=== PATIENT | male | born 1990 | race Caucasian/White ===

== ENCOUNTER 2017-03-21 10:44 | Observation (INO) | payer MEDICARE, SELFPAY ==
[2017-03-21] MEDS ORDERED: Sodium Chloride 0.9% 1,000 ML IV ONE (11:11)
[2017-03-21] MEDS ORDERED: Ondansetron 4 MG/2 ML SDV IVPUSH ONE (11:11)
[2017-03-21] MEDS ORDERED: Ketorolac 30 MG/ML SDV IVPUSH ONE (11:11)
--- NOTE | 2017-03-21 11:31 | EDM.PDOC ---
ED HPI GENERAL MEDICAL PROBLEM - General Chief Complaint: Gastrointestinal Problem Stated Complaint: VOMITING Time Seen by Provider: 03/21/17 11:15 Source of Information: Reports: Patient History Limitations: Reports: No Limitations - History of Present Illness INITIAL COMMENTS - FREE TEXT/NARRATIVE: History of present illness: [26-year-old male comes in complaining of abdominal pain and vomiting. Patient indicates it started last night at 3 AM and has gotten progressively worse. Patient acute she does have a known history of colitis.] Review of systems: As per history of present illness and below otherwise all systems reviewed and negative. Past medical history: As per history of present illness and as reviewed below otherwise noncontributory. Surgical history: As per history of present illness and as reviewed below otherwise noncontributory. Social history: No reported history of drug or alcohol abuse. Family history: As per history of present illness and as reviewed below otherwise noncontributory. Physical exam: HEENT: Atraumatic, normocephalic, pupils reactive, negative for conjunctival pallor or scleral icterus, mucous membranes moist, throat clear, neck supple, nontender, trachea midline. Lungs: Clear to auscultation, breath sounds equal bilaterally, chest nontender. Heart: S1S2, regular, negative for clicks, rubs, or JVD. Abdomen: Protuberant, firm, diffusely tender abdomen. Negative for masses or hepatosplenomegaly. Negative for costovertebral tenderness. Pelvis: Stable nontender. Genitourinary: Deferred. Rectal: Deferred. Extremities: Atraumatic, negative for cords or calf pain. Right leg noted to have cellulitic appearance from the ankle to just below the knee, with out neurovascular compromise noted at this time. Neuro: Awake, alert, oriented. Cranial nerves II through XII unremarkable. Cerebellum unremarkable. Motor and sensory unremarkable throughout. Exam nonfocal. Patient indicated this is the leg that he has problems with. Diagnostics: [CBC, CMP, Gerhard Lezama, lipase, UA, CT of abdomen without contrast] Therapeutics: [IV, Zofran, Vanco, Zosyn] Impression: [Cellulitis] Plan: [Admit to Obs] Definitive disposition and diagnosis as appropriate pending reevaluation and review of above. - Related Data Allergies Allergy/AdvReac Type Severity Reaction Status Date / Time Iodinated Contrast- Oral and AdvReac Renal Verified 03/21/17 10:49 IV Dye Failure Home Meds: Home Meds . [No Known Home Meds] 03/21/17 [History] Past Medical History - Past Health History Medical/Surgical History: Denies Medical/Surgical History Gastrointestinal History: Reports: Other (See Below) Other Gastrointestinal History: elevation in LFTs, abdominal US 09/2015 showed fatty liver and gallbladder sludge. Genitourinary History: Reports: Other (See Below) Other Genitourinary History: na Neurological History: Reports: Other (See Below) Other Neuro History: hydrocephalus Dermatologic History: Reports: Cellulitis, Chronic Cellulitis Other Dermatologic History: RLE - Infectious Disease History Infectious Disease History: Reports: Chicken Pox - Past Surgical History Neurological Surgical History: Reports: None Social & Family History - Family History Family Medical History: Noncontributory - Tobacco Use Smoking Status *Q: Never Smoker Second Hand Smoke Exposure: No - Caffeine Use Caffeine Use: Reports: Coffee, Soda - Recreational Drug Use Recreational Drug Use: No ED ROS GENERAL - Review of Systems Review Of Systems: See Below (See history of present illness) ED EXAM, GI/ABD - Physical Exam Exam: See Below (See history of present illness) Course - Vital Signs Last Recorded V/S: Last Vital Signs Temp 36.9 C 03/21/17 11:09 Pulse 109 H 03/21/17 11:09 Resp 18 03/21/17 11:09 BP 130/68 03/21/17 11:09 Pulse Ox 93 L 03/21/17 11:09 - Orders/Labs/Meds Orders: Active Orders 24 hr Category Date Time Status Abdomen Pelvis wo Cont [CT] Stat Exams 03/21/17 11:11 Taken Tibia Fibula Rt [CR] Stat Exams 03/21/17 13:06 Taken CULTURE BLOOD [BC] Stat Lab 03/21/17 12:37 Received CULTURE BLOOD [BC] Stat Lab 03/21/17 12:37 Received UA W/MICROSCOPIC [URIN] Stat Lab 03/21/17 11:11 Uncollected Piperacillin/Tazobactam [Piperacil-Tazobact] 4.5 gm Med 03/21/17 12:59 Active Sodium Chloride 0.9% [Normal Saline] 100 ml IV ONETIME Sodium Chloride 0.9% [Normal Saline] 1,000 ml Med 03/21/17 13:38 Active IV NOW Vancomycin [Vancocin] 1 gm Med 03/21/17 12:59 Active Sodium Chloride 0.9% [Normal Saline] 250 ml IV ONETIME Blood Culture x2 Reflex Set [OM.PC] Stat Oth 03/21/17 12:24 Ordered Medication Orders Piperacillin Sod/Tazobactam (Sod 4.5 gm/ Sodium Chloride) 100 mls @ 100 mls/hr IV ONETIME ONE Stop: 03/21/17 13:58 Vancomycin HCl 1 gm/ Sodium (Chloride) 250 mls @ 250 mls/hr IV ONETIME ONE Stop: 03/21/17 13:58 Sodium Chloride (Normal Saline) 1,000 mls @ 125 mls/hr IV NOW STA Stop: 03/21/17 21:37 Last Admin: 03/21/17 13:42 Dose: 125 mls/hr Labs: Laboratory Tests 03/21/17 03/21/17 03/21/17 Range/Units 11:20 11:20 12:37 WBC 21.56 H (4.0-11.0) K/uL RBC 5.80 (4.50-5.90) M/uL Hgb 16.5 (13.0-17.0) g/dL Hct 46.6 (38.0-50.0) % MCV 80.3 (80.0-98.0) fL MCH 28.4 (27.0-32.0) pg MCHC 35.4 (31.0-37.0) g/dL RDW Std Deviation 38.5 (28.0-62.0) fl RDW Coeff of Gabriella 13 (11.0-15.0) % Plt Count 161 (150-400) K/uL MPV 10.50 (7.40-12.00) fL Add Manual Diff YES Neutrophils % (Manual) 88 H (48.0-80.0) % Band Neutrophils % 7 % Lymphocytes % (Manual) 3 L (16.0-40.0) % Monocytes % (Manual) 2 (0.0-15.0) % Nucleated RBC % 0.0 /100WBC Absolute Seg Neuts 19.0 Band Neutrophils # 1.5 Lymphocytes # (Manual) 0.6 Monocytes # (Manual) 0.4 Nucleated RBCs # 0 K/uL Lactate 1.4 (0.20-2.00) mmol/L Sodium 138 (136-146) mmol/L Potassium 3.9 (3.5-5.1) mmol/L Chloride 103 (98-110) mmol/L Carbon Dioxide 24 (21-31) mmol/L BUN 14 (6.0-23.0) mg/dL Creatinine 0.9 (0.6-1.5) mg/dL Est Cr Clr Drug Dosing 94.37 mL/min Estimated GFR (MDRD) > 60.0 ml/min Glucose 114 H (60-110) mg/dL Calcium 9.5 (8.8-10.8) mg/dL Total Bilirubin 1.9 H (0.1-1.5) mg/dL AST 31 (5-40) IU/L ALT 56 H (8-54) IU/L Alkaline Phosphatase 74 (40-150) Total Protein 7.3 (6.0-8.0) g/dL Albumin 4.4 (3.5-5.0) g/dL Globulin 2.9 (2.0-3.5) g/dL Albumin/Globulin Ratio 1.5 (1.3-2.8) Amylase 45 (10-90) U/L Lipase 12 (7-80) U/L Meds: Medications Generic Name Dose Route Start Last Admin Trade Name Freq PRN Reason Stop Dose Admin Piperacillin Sod/Tazobactam 100 mls @ 100 mls/hr 03/21/17 12:59 Sod 4.5 gm/ Sodium Chloride IV 03/21/17 13:58 ONETIME ONE Vancomycin HCl 1 gm/ Sodium 250 mls @ 250 mls/hr 03/21/17 12:59 Chloride IV 03/21/17 13:58 ONETIME ONE Sodium Chloride 1,000 mls @ 125 mls/hr 03/21/17 13:38 03/21/17 13:42 Normal Saline IV 03/21/17 21:37 125 mls/hr NOW STA Administration Discontinued Medications Generic Name Dose Route Start Last Admin Trade Name Freq PRN Reason Stop Dose Admin Sodium Chloride 1,000 mls @ 999 mls/hr 03/21/17 11:11 03/21/17 11:54 Normal Saline IV 03/21/17 12:11 999 mls/hr .Bolus ONE Administration Ketorolac Tromethamine 30 mg 03/21/17 11:11 03/21/17 11:58 Toradol IVPUSH 03/21/17 11:12 30 mg ONETIME ONE Administration Ondansetron HCl 4 mg 03/21/17 11:11 03/21/17 11:57 Zofran IVPUSH 03/21/17 11:12 4 mg ONETIME ONE Administration Departure - Departure Time of Disposition: 13:46 Disposition: Refer to Observation Condition: Good Clinical Impression: Cellulitis of right leg - Discharge Information Referrals: Alistair Hazel MD [Primary Care Provider] - Forms: ED Department Discharge - My Orders Last 24 Hours: My Active Orders 03/21/17 11:11 Abdomen Pelvis wo Cont [CT] Stat UA W/MICROSCOPIC [URIN] Stat 03/21/17 12:24 Blood Culture x2 Reflex Set [OM.PC] Stat 03/21/17 12:37 CULTURE BLOOD [BC] Stat CULTURE BLOOD [BC] Stat 03/21/17 12:59 Piperacillin/Tazobactam [Piperacil-Tazobact] 4.5 gm Sodium Chloride 0.9% [ Normal Saline] 100 ml IV ONETIME Vancomycin [Vancocin] 1 gm Sodium Chloride 0.9% [Normal Saline] 250 ml IV ONETIME 03/21/17 13:06 Tibia Fibula Rt [CR] Stat 03/21/17 13:38 Sodium Chloride 0.9% [Normal Saline] 1,000 ml IV NOW - Assessment/Plan Last 24 Hours: My Active Orders 03/21/17 11:11 Abdomen Pelvis wo Cont [CT] Stat UA W/MICROSCOPIC [URIN] Stat 03/21/17 12:24 Blood Culture x2 Reflex Set [OM.PC] Stat 03/21/17 12:37 CULTURE BLOOD [BC] Stat CULTURE BLOOD [BC] Stat 03/21/17 12:59 Piperacillin/Tazobactam [Piperacil-Tazobact] 4.5 gm Sodium Chloride 0.9% [ Normal Saline] 100 ml IV ONETIME Vancomycin [Vancocin] 1 gm Sodium Chloride 0.9% [Normal Saline] 250 ml IV ONETIME 03/21/17 13:06 Tibia Fibula Rt [CR] Stat 03/21/17 13:38 Sodium Chloride 0.9% [Normal Saline] 1,000 ml IV NOW
[2017-03-21 11:54] LABS: CHLORIDE,CL 103 mmol/L (98-110); SODIUM,NA 138 mmol/L (136-146)
[2017-03-21] MEDS ORDERED: Piperacillin/Tazobactam 4.5 GM in Sodium Chloride 0.9% 100 ML IV ONE (12:59)
[2017-03-21] MEDS ORDERED: Sodium Chloride 0.9% 1,000 ML IV STA (13:38)
[2017-03-21] MEDS ORDERED: oxyCODONE 5 MG Tab PO PRN (14:06)
[2017-03-21] MEDS ORDERED: Docusate Sodium 100 MG Cap PO PRN (14:06)
[2017-03-21] MEDS ORDERED: Morphine 2 MG/ML Syringe IVPUSH PRN (14:06)
[2017-03-21] MEDS ORDERED: Temazepam 15 MG Cap PO PRN (14:06)
[2017-03-21] MEDS ORDERED: Ondansetron 8 MG Tab.DIS PO PRN (14:06)
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
[2017-03-21] MEDS ORDERED: Sodium Chloride 0.9% 1,000 ML IV SCH ×2 (14:15→22:45)
[2017-03-21] MEDS ORDERED: Piperacillin/Tazobactam 4.5 GM in Sodium Chloride 0.9% 100 ML IV SCH (15:00)
[2017-03-21] MEDS: Enoxaparin 30 MG/0.3 ML Syringe SUBCUT SCH (15:15)
[2017-03-21] MEDS: Acetaminophen 325 MG Tab PO PRN (19:39)
[2017-03-21] MEDS ORDERED: Meropenem 1 GM in Sodium Chloride 0.9% 100 ML IV SCH (20:00)
--- NOTE | 2017-03-21 20:32 | PCM.SN ---
- Free Text/Narrative Note: The patient is a 26-year-old gentleman who is admitted for cellulitis localized to his right lower extremity. Nurse had called explained that the patient had broken out in a rash and seemed like he was altered mentally. The patient seems like he is somewhat tired but he is answering questions appropriately and is responding appropriately. This is not significantly different form I previously saw him in the emergency department. The patient had a temperature of 102F and blood cultures have been previously obtained. I've ordered an ABG, lactate and discontinued the patient's vancomycin and started the patient on meropenem. Lactate came back 1.2 and this is within a normal range and for now the patient will remain in medical/surgery for further monitoring and evaluation. I'll see the patient in the morning and his treatment plan will be adjusted accordingly.
[2017-03-21] MEDS: Meropenem 1 GM in Sodium Chloride 0.9% 100 ML IV SCH (20:50)
[2017-03-21] MEDS: Piperacillin/Tazobactam 4.5 GM in Sodium Chloride 0.9% 100 ML IV SCH (22:35)
[2017-03-22] MEDS: Acetaminophen 325 MG Tab PO PRN ×3 (05:03→18:25)
[2017-03-22] MEDS: Piperacillin/Tazobactam 4.5 GM in Sodium Chloride 0.9% 100 ML IV SCH ×3 (05:04→20:33)
[2017-03-22] MEDS: Meropenem 1 GM in Sodium Chloride 0.9% 100 ML IV SCH ×3 (06:19→22:55)
[2017-03-22 07:28] LABS: CHLORIDE,CL 105 mmol/L (98-110); SODIUM,NA 138 mmol/L (136-146)
[2017-03-22] MEDS: Enoxaparin 30 MG/0.3 ML Syringe SUBCUT SCH (08:08)
--- NOTE | 2017-03-22 11:12 | PCM.PN ---
- General Info Admission Dx/Problem (Free Text): cellulitis right lower extremity Subjective Update: patient doing better today. Less fever. Functional Status: Reports: Pain Controlled, Tolerating Diet - Review of Systems General: Reports: Fever, Weakness HEENT: Reports: No Symptoms Pulmonary: Reports: No Symptoms Cardiovascular: Reports: No Symptoms Gastrointestinal: Reports: No Symptoms Genitourinary: Reports: No Symptoms Musculoskeletal: Reports: No Symptoms Skin: Reports: Rash Neurological: Reports: No Symptoms Psychiatric: Reports: No Symptoms - Patient Data Vitals - Most Recent: Last Vital Signs Temp 37.1 C 03/22/17 08:07 Pulse 104 H 03/22/17 08:07 Resp 18 03/22/17 08:07 BP 115/53 L 03/22/17 08:07 Pulse Ox 94 L 03/22/17 08:07 Weight - Most Recent: 113.398 kg I&O - Last 24 Hours: Intake & Output 03/21/17 03/22/17 03/22/17 22:59 06:59 14:59 Intake Total 546 1400 Output Total 275 850 Balance 271 550 Lab Results Last 24 Hours: Laboratory Results - last 24 hr 03/21/17 03/21/17 03/21/17 Range/Units 14:50 20:01 20:10 WBC (4.0-11.0) K/uL RBC (4.50-5.90) M/uL Hgb (13.0-17.0) g/dL Hct (38.0-50.0) % MCV (80.0-98.0) fL MCH (27.0-32.0) pg MCHC (31.0-37.0) g/dL RDW Std Deviation (28.0-62.0) fl RDW Coeff of Gabriella (11.0-15.0) % Plt Count (150-400) K/uL MPV (7.40-12.00) fL Add Manual Diff Neutrophils % (Manual) (48.0-80.0) % Band Neutrophils % % Lymphocytes % (Manual) (16.0-40.0) % Monocytes % (Manual) (0.0-15.0) % Eosinophils % (Manual) (0.0-7.0) % Nucleated RBC % /100WBC Absolute Seg Neuts Band Neutrophils # Lymphocytes # (Manual) Monocytes # (Manual) Eosinophils # (Manual) Nucleated RBCs # K/uL ABG pH 7.359 (7.35-7.45) ABG pCO2 45 (35-45) mmHG ABG pO2 39 L* (75-100) mmHG ABG HCO3 26 (22-26) mEq/L ABG Total CO2 22.8 ABG Base Excess -0.4 (-2.0-2.0) Lactate 1.2 (0.20-2.00) mmol/L Sodium (136-146) mmol/L Potassium (3.5-5.1) mmol/L Chloride (98-110) mmol/L Carbon Dioxide (21-31) mmol/L BUN (6.0-23.0) mg/dL Creatinine (0.6-1.5) mg/dL Est Cr Clr Drug Dosing mL/min Estimated GFR (MDRD) ml/min Glucose (60-110) mg/dL Calcium (8.8-10.8) mg/dL Total Bilirubin (0.1-1.5) mg/dL AST (5-40) IU/L ALT (8-54) IU/L Alkaline Phosphatase (40-150) Total Protein (6.0-8.0) g/dL Albumin (3.5-5.0) g/dL Globulin (2.0-3.5) g/dL Albumin/Globulin Ratio (1.3-2.8) Urine Color YELLOW Urine Appearance CLEAR Urine pH 7.5 (5.0-8.0) Ur Specific [place] 1.010 (1.001-1.035) Urine Protein TRACE (NEGATIVE) mg/dL Urine Glucose (UA) NEGATIVE (NEGATIVE) mg/dL Urine Ketones TRACE H (NEGATIVE) mg/dL Urine Occult Blood NEGATIVE (NEGATIVE) Urine Nitrite NEGATIVE (NEGATIVE) Urine Bilirubin NEGATIVE (NEGATIVE) Urine Urobilinogen 0.2 (<2.0) EU/dL Ur Leukocyte Esterase NEGATIVE (NEGATIVE) Urine RBC NONE SEEN (0-2/HPF) Urine WBC NONE SEEN (0-5/HPF) Ur Epithelial Cells RARE (NONE-FEW) Urine Bacteria NOT SEEN (NEGATIVE) 03/21/17 03/22/17 03/22/17 Range/Units 20:35 06:13 06:13 WBC 15.07 H (4.0-11.0) K/uL RBC 5.20 (4.50-5.90) M/uL Hgb 14.5 (13.0-17.0) g/dL Hct 42.6 (38.0-50.0) % MCV 81.9 (80.0-98.0) fL MCH 27.9 (27.0-32.0) pg MCHC 34.0 (31.0-37.0) g/dL RDW Std Deviation 41.6 (28.0-62.0) fl RDW Coeff of Gabriella 14 (11.0-15.0) % Plt Count 161 (150-400) K/uL MPV 11.10 (7.40-12.00) fL Add Manual Diff YES Neutrophils % (Manual) 73 (48.0-80.0) % Band Neutrophils % 22 % Lymphocytes % (Manual) 2 L (16.0-40.0) % Monocytes % (Manual) 2 (0.0-15.0) % Eosinophils % (Manual) 1 (0.0-7.0) % Nucleated RBC % 0.0 /100WBC Absolute Seg Neuts 11.0 Band Neutrophils # 3.3 Lymphocytes # (Manual) 0.3 Monocytes # (Manual) 0.3 Eosinophils # (Manual) 0.2 Nucleated RBCs # 0 K/uL ABG pH 7.374 (7.35-7.45) ABG pCO2 41 (35-45) mmHG ABG pO2 59 L (75-100) mmHG ABG HCO3 24 (22-26) mEq/L ABG Total CO2 20.8 ABG Base Excess -1.5 (-2.0-2.0) Lactate (0.20-2.00) mmol/L Sodium 138 (136-146) mmol/L Potassium 3.7 (3.5-5.1) mmol/L Chloride 105 (98-110) mmol/L Carbon Dioxide 22 (21-31) mmol/L BUN 17 (6.0-23.0) mg/dL Creatinine 1.0 (0.6-1.5) mg/dL Est Cr Clr Drug Dosing 84.93 mL/min Estimated GFR (MDRD) > 60.0 ml/min Glucose 149 H (60-110) mg/dL Calcium 8.5 L (8.8-10.8) mg/dL Total Bilirubin 2.0 H (0.1-1.5) mg/dL AST 138 H (5-40) IU/L ALT 186 H (8-54) IU/L Alkaline Phosphatase 65 (40-150) Total Protein 6.3 (6.0-8.0) g/dL Albumin 3.7 (3.5-5.0) g/dL Globulin 2.6 (2.0-3.5) g/dL Albumin/Globulin Ratio 1.4 (1.3-2.8) Urine Color Urine Appearance Urine pH (5.0-8.0) Ur Specific [place] (1.001-1.035) Urine Protein (NEGATIVE) mg/dL Urine Glucose (UA) (NEGATIVE) mg/dL Urine Ketones (NEGATIVE) mg/dL Urine Occult Blood (NEGATIVE) Urine Nitrite (NEGATIVE) Urine Bilirubin (NEGATIVE) Urine Urobilinogen (<2.0) EU/dL Ur Leukocyte Esterase (NEGATIVE) Urine RBC (0-2/HPF) Urine WBC (0-5/HPF) Ur Epithelial Cells (NONE-FEW) Urine Bacteria (NEGATIVE) Med Orders - Current: Current Medications Acetaminophen (Tylenol) 650 mg PO Q4H PRN PRN Reason: Pain (Mild 1-3)/fever Last Admin: 03/22/17 09:30 Dose: 650 mg Docusate Sodium (Colace) 100 mg PO BID PRN PRN Reason: Constipation Enoxaparin Sodium (Lovenox) 30 mg SUBCUT DAILY [facility] Last Admin: 03/22/17 08:08 Dose: 30 mg Piperacillin Sod/Tazobactam (Sod 4.5 gm/ Sodium Chloride) 100 mls @ 100 mls/hr IV Q8H [facility] Last Admin: 03/22/17 05:04 Dose: 100 mls/hr Meropenem 1 gm/ Sodium (Chloride) 100 mls @ 200 mls/hr IV Q8H [facility] Sodium Chloride (Normal Saline) 1,000 mls @ 75 mls/hr IV ASDIRECTED [facility] Morphine Sulfate (Morphine) 2 mg IVPUSH Q2H PRN PRN Reason: Pain (severe 7-10) Stop: 03/22/17 14:10 Ondansetron HCl (Zofran) 8 mg IVPUSH Q4H PRN PRN Reason: Nausea/Vomiting Oxycodone HCl (Oxycodone) 5 mg PO Q4H PRN PRN Reason: Pain (moderate 4-6) Temazepam (Restoril) 15 mg PO BEDTIME PRN PRN Reason: Sleep Discontinued Medications Sodium Chloride (Normal Saline) 1,000 mls @ 999 mls/hr IV .Bolus ONE Stop: 03/21/17 12:11 Last Admin: 03/21/17 11:54 Dose: 999 mls/hr Piperacillin Sod/Tazobactam (Sod 4.5 gm/ Sodium Chloride) 100 mls @ 100 mls/hr IV ONETIME ONE Stop: 03/21/17 13:58 Last Admin: 03/21/17 13:43 Dose: 100 mls/hr Vancomycin HCl 1 gm/ Sodium (Chloride) 250 mls @ 250 mls/hr IV ONETIME ONE Stop: 03/21/17 13:58 Last Admin: 03/21/17 15:15 Dose: 250 mls/hr Sodium Chloride (Normal Saline) 1,000 mls @ 125 mls/hr IV NOW STA Stop: 03/21/17 21:37 Last Admin: 03/21/17 13:42 Dose: 125 mls/hr Sodium Chloride (Normal Saline) 1,000 mls @ 75 mls/hr IV ASDIRECTED [facility] Piperacillin Sod/Tazobactam (Sod 4.5 gm/ Sodium Chloride) 100 mls @ 100 mls/hr IV Q8H [facility] Last Admin: 03/21/17 17:03 Dose: Not Given Vancomycin HCl 1,000 mg/Vancomycin HCl 500 mg/ Sodium Chloride 500 mls @ 334.014 mls/hr IV Q12H [facility] Vancomycin HCl 1,000 mg/Vancomycin HCl 500 mg/ Sodium Chloride 500 mls @ 334.014 mls/hr IV Q12H [facility] Meropenem 1 gm/ Sodium (Chloride) 100 mls @ 200 mls/hr IV Q8H [facility] Last Admin: 03/22/17 10:08 Dose: Not Given Meropenem 1 gm/ Sodium (Chloride) 100 mls @ 200 mls/hr IV Q8H [facility] Last Admin: 03/22/17 06:19 Dose: 200 mls/hr Sodium Chloride (Normal Saline) 1,000 mls @ 125 mls/hr IV ASDIRECTED [facility] Last Admin: 03/22/17 01:44 Dose: 125 mls/hr Ketorolac Tromethamine (Toradol) 30 mg IVPUSH ONETIME ONE Stop: 03/21/17 11:12 Last Admin: 03/21/17 11:58 Dose: 30 mg Ondansetron HCl (Zofran) 4 mg IVPUSH ONETIME ONE Stop: 03/21/17 11:12 Last Admin: 03/21/17 11:57 Dose: 4 mg Ondansetron HCl (Zofran Odt) 8 mg PO Q4H PRN PRN Reason: nausea, able to take PO Last Admin: 03/22/17 02:48 Dose: 8 mg - Exam Quality Assessment: No: Supplemental Oxygen General: Alert, Oriented, Cooperative, No Acute Distress HEENT: Pupils Equal, Pupils Reactive, EOMI Neck: Supple, Trachea Midline Lungs: Clear to Auscultation, Normal Respiratory Effort Cardiovascular: Regular Rate, Regular Rhythm GI/Abdominal Exam: Normal Bowel Sounds, Soft, Non-Tender Extremities: Pedal Edema (right greater than left) Skin: Warm, Dry, Rash (coarse macular papular rash without coalescence located on torso, chest, upper arms) Neurological: No New Focal Deficit Psy/Mental Status: Alert, Normal Affect, Normal Mood - Problem List & Annotations (1) Cellulitis of right leg SNOMED Code(s): 803178594 Code(s): L03.115 - CELLULITIS OF RIGHT LOWER LIMB Status: Acute Priority : High Current Visit: Yes Annotation/Comment:: Also noted to have chronic lymphedema uncertain origin (2) Viral exanthem, unspecified SNOMED Code(s): 29285420 Code(s): B09 - UNSP VIRAL INFECTION WITH SKIN AND MUCOUS MEMBRANE LESIONS Status: Acute Priority: High Current Visit: Yes Annotation/Comment:: patient's white blood cell count trending down, lactate 1.2. - Problem List Review Problem List Initiated/Reviewed/Updated: Yes - My Orders Last 24 Hours: My Active Orders 03/21/17 14:06 Patient Status [ADT] Routine Oxygen Therapy [RC] PRN Up ad [place] [RC] ASDIRECTED VTE/DVT Education [RC] PER UNIT ROUTINE Vital Signs [RC] Q4H Acetaminophen [Tylenol] 650 mg PO Q4H PRN Docusate Sodium [Colace] 100 mg PO BID PRN Morphine 2 mg IVPUSH Q2H PRN Temazepam [Restoril] 15 mg PO BEDTIME PRN oxyCODONE 5 mg PO Q4H PRN VTE Mechanical Contraindications [AST] Per Unit Routine Resuscitation Status Routine 03/21/17 14:08 Ambulate [RC] PER UNIT ROUTINE 03/21/17 14:15 Enoxaparin [Lovenox] 30 mg SUBCUT DAILY 03/21/17 21:00 Piperacillin/Tazobactam [Piperacil-Tazobact] 4.5 gm Sodium Chloride 0.9% [ Normal Saline] 100 ml IV Q8H 03/21/17 Dinner Regular Diet [DIET] 03/22/17 09:17 Ondansetron [Zofran] 8 mg IVPUSH Q4H PRN 03/22/17 10:53 Sodium Chloride 0.9% [Normal Saline] 1,000 ml IV ASDIRECTED 03/22/17 14:00 Meropenem [Merrem] 1 gm Sodium Chloride 0.9% [Normal Saline] 100 ml IV Q8H - Plan Plan:: The patient is a 26-year-old gentleman who was admitted secondary to cellulitis of his right lower extremity. The patient was evaluated during the night secondary to a spiking fever of 39.1 Celsius. Blood cultures have been previously taken in the emergency department and these are not available yet. Also interestingly, the patient broke out in a red rash over his leg, torso back and upper arms. Patient does complain of a rash on his face and he is only itching on his right lower extremity presently. The patient today says that he is doing much better. He feels like less pain. The patient's vancomycin was discontinued yesterday and he was started on meropenem. The patient may be appropriate for discharge in 1-2 days depending upon resolution of his temperature, resolution of rash and improvement in his lower extremity cellulitis. The patient will be continued on his antibiotics, fluid support, I have decreased the fluids from 125-75 mL per hour.
[2017-03-22] MEDS: Sodium Chloride 0.9% 1,000 ML IV SCH (11:21)
[2017-03-22] MEDS: Ondansetron 4 MG/2 ML SDV IVPUSH PRN ×2 (13:01→18:25)
[2017-03-23] MEDS: Ondansetron 4 MG/2 ML SDV IVPUSH PRN (02:57)
[2017-03-23] MEDS: Sodium Chloride 0.9% 1,000 ML IV SCH ×2 (02:58→20:44)
[2017-03-23] MEDS: Piperacillin/Tazobactam 4.5 GM in Sodium Chloride 0.9% 100 ML IV SCH ×3 (04:15→20:45)
[2017-03-23] MEDS: Meropenem 1 GM in Sodium Chloride 0.9% 100 ML IV SCH ×3 (05:23→21:52)
[2017-03-23 07:18] LABS: CHLORIDE,CL 105 mmol/L (98-110); SODIUM,NA 138 mmol/L (136-146)
[2017-03-23] MEDS: Enoxaparin 30 MG/0.3 ML Syringe SUBCUT SCH (09:02)
--- NOTE | 2017-03-23 11:42 | PCM.PN ---
- General Info Date of Service: 03/23/17 Admission Dx/Problem (Free Text): cellulitis right lower extremity Subjective Update: Feeling better today, had some nausea overnight. Reports I eat or drink and it comes right back up. But feeling better this am and ate breakfast without nausea. Some RUQ tenderness. He is passing gas. NO BMs. R leg pain is improving , just tender, erythema and edema improving as well per patient report. Functional Status: Reports: Pain Controlled, Tolerating Diet, Ambulating, Urinating - Review of Systems General: Reports: No Symptoms. Denies: Fever HEENT: Reports: No Symptoms. Denies: Sinus Congestion, Sore Throat Pulmonary: Reports: No Symptoms. Denies: Shortness of Breath Cardiovascular: Reports: No Symptoms. Denies: Chest Pain, Palpitations Gastrointestinal: Reports: Abdominal Pain (RUQ). Denies: Nausea, Vomiting Genitourinary: Reports: No Symptoms. Denies: Dysuria, Frequency, Burning, Pain Skin: Reports: Rash (improving to body, scantly noted to arms and legs), Other ( Redness to leg improving) Neurological: Reports: No Symptoms Psychiatric: Reports: No Symptoms - Patient Data Vitals - Most Recent: Last Vital Signs Temp 99.4 F 03/23/17 08:00 Pulse 96 03/23/17 08:00 Resp 16 03/23/17 08:00 BP 116/64 03/23/17 08:00 Pulse Ox 93 L 03/23/17 08:00 Weight - Most Recent: 113.398 kg I&O - Last 24 Hours: Intake & Output 03/22/17 03/23/17 03/23/17 22:59 06:59 14:59 Intake Total 600 1450 Output Total 575 600 Balance 25 850 Lab Results Last 24 Hours: Laboratory Results - last 24 hr 03/23/17 03/23/17 Range/Units 06:47 06:47 WBC 8.42 (4.0-11.0) K/uL RBC 4.54 (4.50-5.90) M/uL Hgb 12.7 L (13.0-17.0) g/dL Hct 37.4 L (38.0-50.0) % MCV 82.4 (80.0-98.0) fL MCH 28.0 (27.0-32.0) pg MCHC 34.0 (31.0-37.0) g/dL RDW Std Deviation 41.7 (28.0-62.0) fl RDW Coeff of Gabriella 14 (11.0-15.0) % Plt Count 124 L (150-400) K/uL MPV 10.50 (7.40-12.00) fL Neut % (Auto) 82.3 H (48.0-80.0) % Lymph % (Auto) 9.9 L (16.0-40.0) % [place] % (Auto) 4.6 (0.0-15.0) % Eos % (Auto) 3.1 (0.0-7.0) % Baso % (Auto) 0.1 (0.0-1.5) % Neut # (Auto) 6.9 H (1.4-5.7) K/uL Lymph # (Auto) 0.8 (0.6-2.4) K/uL [place] # (Auto) 0.4 (0.0-0.8) K/uL Eos # (Auto) 0.3 (0.0-0.7) K/uL Baso # (Auto) 0.0 (0.0-0.1) K/uL Nucleated RBC % 0.0 /100WBC Nucleated RBCs # 0 K/uL Sodium 138 (136-146) mmol/L Potassium 4.0 (3.5-5.1) mmol/L Chloride 105 (98-110) mmol/L Carbon Dioxide 26 (21-31) mmol/L BUN 14 (6.0-23.0) mg/dL Creatinine 0.8 (0.6-1.5) mg/dL Est Cr Clr Drug Dosing 106.17 mL/min Estimated GFR (MDRD) > 60.0 ml/min Glucose 93 (60-110) mg/dL Calcium 8.2 L (8.8-10.8) mg/dL Med Orders - Current: Current Medications Acetaminophen (Tylenol) 650 mg PO Q4H PRN PRN Reason: Pain (Mild 1-3)/fever Last Admin: 03/22/17 18:25 Dose: 650 mg Docusate Sodium (Colace) 100 mg PO BID PRN PRN Reason: Constipation Enoxaparin Sodium (Lovenox) 30 mg SUBCUT DAILY [facility] Last Admin: 03/23/17 09:02 Dose: 30 mg Piperacillin Sod/Tazobactam (Sod 4.5 gm/ Sodium Chloride) 100 mls @ 100 mls/hr IV Q8H [facility] Last Admin: 03/23/17 04:15 Dose: 100 mls/hr Meropenem 1 gm/ Sodium (Chloride) 100 mls @ 200 mls/hr IV Q8H [facility] Last Admin: 03/23/17 05:23 Dose: 200 mls/hr Sodium Chloride (Normal Saline) 1,000 mls @ 75 mls/hr IV ASDIRECTED [facility] Last Admin: 03/23/17 02:58 Dose: 75 mls/hr Ondansetron HCl (Zofran) 8 mg IVPUSH Q4H PRN PRN Reason: Nausea/Vomiting Last Admin: 03/23/17 02:57 Dose: 8 mg Oxycodone HCl (Oxycodone) 5 mg PO Q4H PRN PRN Reason: Pain (moderate 4-6) Temazepam (Restoril) 15 mg PO BEDTIME PRN PRN Reason: Sleep Discontinued Medications Sodium Chloride (Normal Saline) 1,000 mls @ 999 mls/hr IV .Bolus ONE Stop: 03/21/17 12:11 Last Admin: 03/21/17 11:54 Dose: 999 mls/hr Piperacillin Sod/Tazobactam (Sod 4.5 gm/ Sodium Chloride) 100 mls @ 100 mls/hr IV ONETIME ONE Stop: 03/21/17 13:58 Last Admin: 03/21/17 13:43 Dose: 100 mls/hr Vancomycin HCl 1 gm/ Sodium (Chloride) 250 mls @ 250 mls/hr IV ONETIME ONE Stop: 03/21/17 13:58 Last Admin: 03/21/17 15:15 Dose: 250 mls/hr Sodium Chloride (Normal Saline) 1,000 mls @ 125 mls/hr IV NOW STA Stop: 03/21/17 21:37 Last Admin: 03/21/17 13:42 Dose: 125 mls/hr Sodium Chloride (Normal Saline) 1,000 mls @ 75 mls/hr IV ASDIRECTED [facility] Piperacillin Sod/Tazobactam (Sod 4.5 gm/ Sodium Chloride) 100 mls @ 100 mls/hr IV Q8H [facility] Last Admin: 03/21/17 17:03 Dose: Not Given Vancomycin HCl 1,000 mg/Vancomycin HCl 500 mg/ Sodium Chloride 500 mls @ 334.014 mls/hr IV Q12H [facility] Vancomycin HCl 1,000 mg/Vancomycin HCl 500 mg/ Sodium Chloride 500 mls @ 334.014 mls/hr IV Q12H [facility] Meropenem 1 gm/ Sodium (Chloride) 100 mls @ 200 mls/hr IV Q8H [facility] Last Admin: 03/22/17 10:08 Dose: Not Given Meropenem 1 gm/ Sodium (Chloride) 100 mls @ 200 mls/hr IV Q8H [facility] Last Admin: 03/22/17 06:19 Dose: 200 mls/hr Sodium Chloride (Normal Saline) 1,000 mls @ 125 mls/hr IV ASDIRECTED [facility] Last Admin: 03/22/17 01:44 Dose: 125 mls/hr Ketorolac Tromethamine (Toradol) 30 mg IVPUSH ONETIME ONE Stop: 03/21/17 11:12 Last Admin: 03/21/17 11:58 Dose: 30 mg Morphine Sulfate (Morphine) 2 mg IVPUSH Q2H PRN PRN Reason: Pain (severe 7-10) Stop: 03/22/17 14:10 Ondansetron HCl (Zofran) 4 mg IVPUSH ONETIME ONE Stop: 03/21/17 11:12 Last Admin: 03/21/17 11:57 Dose: 4 mg Ondansetron HCl (Zofran Odt) 8 mg PO Q4H PRN PRN Reason: nausea, able to take PO Last Admin: 03/22/17 02:48 Dose: 8 mg - Exam General: Alert, Oriented, Cooperative, No Acute Distress Lungs: Clear to Auscultation, Normal Respiratory Effort Cardiovascular: Regular Rate, Regular Rhythm. No: Tachycardia, Murmurs GI/Abdominal Exam: Normal Bowel Sounds, Soft, Tender (RUQ, +Traylor sign.) (Male) Exam: Hernia (R inguinal fat containing hernia, large scrotum. NO cellulitis noted) Extremities: Normal Range of Motion, Pedal Edema (R lower leg, non pitting. ) Wound/Incisions: No Drainage, Erythema Improving (Less bright, slightly warm still, but well within outline previous marked. No open areas noted. ) Psy/Mental Status: Alert, Normal Affect, Normal Mood - Problem List & Annotations (1) Cellulitis of right leg SNOMED Code(s): 997198441 Code(s): L03.115 - CELLULITIS OF RIGHT LOWER LIMB Status: Acute Priority : High Current Visit: Yes Annotation/Comment:: Also noted to have chronic lymphedema uncertain origin (2) Elevated LFTs SNOMED Code(s): 949118224 Code(s): R79.89 - OTHER SPECIFIED ABNORMAL FINDINGS OF BLOOD CHEMISTRY Status: Acute Current Visit: No (3) Obesity, morbid, BMI 40.0-49.9 SNOMED Code(s): 040880562, 851454396 Code(s): E66.01 - MORBID (SEVERE) OBESITY DUE TO EXCESS CALORIES Status: Chronic Current Visit: Yes - Problem List Review Problem List Initiated/Reviewed/Updated: Yes - My Orders Last 24 Hours: My Active Orders 03/23/17 11:22 Abdomen Ltd [US] Routine 03/23/17 11:31 ALANINE AMINOTRANSFERASE,ALT [CHEM] Routine ALKALINE PHOSPHATASE [CHEM] Routine ASPARTATE AMNIOTRANSFERASE,AST [CHEM] Routine BILIRUBIN TOTAL [CHEM] Routine - Plan Plan:: This 26 year old male admitted with r lower leg cellulitis 1. R lower leg cellulitis: Fever yesterday at 1600. Leukocytosis normal today. Will continue Zosyn and Meropenem. Would like to see afebrile for greater than 24 hours. Repeat labwork in am. BC remain negative. 2. Elevated LFTs: Does have history of this. CT revealed fatty infiltration of liver. Abd us in 2016, revealed gallbladder sludge, no stones. Will repeat today due to RUQ pain and he continues to have some tenderness and nausea. 3. R inguinal hernia: No pain, will refer for outpatient referral. 4. Rash: Improving, no further itching. Rash improved to extremities. VTE prophylaxis: Lovenox Dispo: Likely in am if remains afebrile.
--- NOTE | 2017-03-23 13:39 | CT ---
EXAM DATE: 03/21/17 PATIENT'S AGE: 26 Patient: KENROY PENN Facility: [place], [place] Site . Site : 1990 Study: CT Abdomen/Pelvis [id number]/9/2017 11:57:19 AM Ordering Physician: Doctor Hampton Final Report: HISTORY: Abdominal pain/vomiting. Technique: CT abdomen and pelvis without contrast. Comparison: CT abdomen and pelvis 10/13/2015. Findings: Abdomen: Decreased attenuation of the liver. Unenhanced liver is otherwise unremarkable. The gallbladder, pancreas, spleen, and adrenal glands are unremarkable. No urinary tract calculi or hydronephrosis. No dilated bowel. Appendix is normal. No free fluid or free intraperitoneal gas. No lymphadenopathy. No abdominal aortic aneurysm. Pelvis: Very large fat containing right inguinal hernia with fat extending into the scrotum. This has slightly increased in size since prior CT. No left inguinal hernia. No free fluid or fluid collection. No lymphadenopathy. Musculoskeletal: No acute findings. Lower chest: Lung bases are clear. Impression: 1. Very large fat containing right inguinal hernia, slightly increased in size since 10/13/2015 CT. 2. Fatty infiltration of the liver. Please note that all CT scans at this facility use dose modulation, iterative reconstruction, and/or weight-based dosing when appropriate to reduce radiation dose to as low as reasonably achievable. Dictated by Zeb Armstrong MD @ Mar 21 2017 12:29PM (Electronic Signature) Report Signed by Proxy. [email or web address]
--- NOTE | 2017-03-23 13:47 | CR ---
EXAM DATE: 03/21/17 PATIENT'S AGE: 26 Patient: KENROY PENN Facility: [place], [place] Site . Site : 1990 Study: XRay Extremity Right Tib/Fib [id number]/9/2017 1:26:43 PM Ordering Physician: Doctor Hampton Final Report: INDICATION: Cellulitis. Evaluate for soft tissue gas. TECHNIQUE: Two views of the right tibia and fibula. COMPARISON: None. IMPRESSION: There is diffuse soft tissue swelling. No soft tissue gas is identified. No radiopaque foreign body. Osseous structures are intact. Dictated by Marco A Newton MD @ 03/21/2017 1:49:19 PM Dictated by: Marco A Newton MD @ 03/21/2017 13:49:29 (Electronic Signature) Report Signed by Proxy. [email or web address]
--- NOTE | 2017-03-23 15:03 | US ---
EXAMINATION: Right upper quadrant ultrasound HISTORY: Pain COMPARISON: CT dated 03/21/2017 TECHNIQUE: Grayscale and color Doppler images obtained of the right upper quadrant. FINDINGS: The pancreas is not well characterized. The liver is moderately increased in generalized ec hotexture without a focal hepatic mass. Gallbladder wall thickness is normal. No shadowing gallstones or pericholecystic fluid. Common bile duct measures 2 mm. The right kidney measures 11.4 cm pole-to- pole without evidence of hydronephrosis. Sonographic Traylor sign is not reported. IMPRESSION: 1. Moderate fatty infiltration of the liver.
[2017-03-24] MEDS: Piperacillin/Tazobactam 4.5 GM in Sodium Chloride 0.9% 100 ML IV SCH (04:58)
[2017-03-24] MEDS: Meropenem 1 GM in Sodium Chloride 0.9% 100 ML IV SCH (06:03)
[2017-03-24 06:31] LABS: CHLORIDE,CL 106 mmol/L (98-110); SODIUM,NA 140 mmol/L (136-146)
[2017-03-24 08:14] VITALS: BP 123/71
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
[2017-03-24] MEDS: Enoxaparin 30 MG/0.3 ML Syringe SUBCUT SCH (09:20)
== END 2017-03-24 10:20 | disposition home or self-care (01) ==
LOC: MW.ED 10:44 → MW.MS 13:53
PROVIDERS: ADMIT Internal Medicine; ATTEND Internal Medicine
DX: L03.115 Cellulitis of right lower limb (principal); R11.10 Vomiting, unspecified; D72.829 Elevated white blood cell count, unspecified; R79.89 Other specified abnormal findings of blood chemistry; E66.01 Morbid (severe) obesity due to excess calories; G91.9 Hydrocephalus, unspecified; K40.90 Unilateral inguinal hernia, without obstruction or gangrene, not specified as recurrent; B09 Unspecified viral infection characterized by skin and mucous membrane lesions; Z91.041 Radiographic dye allergy status
CPT/HCPCS: 36415; 36600; 73590; 74176; 76705; 80048; 80053; 81001; 82150; 82247; 82803; 83605; 83690; 84075; 84450; 84460; 85025; 87040; 96361; 96365; 96366; 96367; 96375; 96376; 99285; A9270; G0378; J1650; J1885; J2185; J2405; J2543; J3370; J7030; J7040; J7050; 99283

== ENCOUNTER 2018-03-15 06:14 | Inpatient (IN) | payer MEDICARE, OTHER, SELFPAY ==
[2018-03-15] MEDS ORDERED: Sodium Chloride 0.9% 1,000 ML IV ONE ×2 (06:27→12:24)
[2018-03-15] MEDS ORDERED: Linezolid 600 MG in Premix Bag 1 BAG IV SCH (06:30)
--- NOTE | 2018-03-15 06:40 | EDM.PDOC ---
ED HPI GENERAL MEDICAL PROBLEM - General Chief Complaint: Skin Complaint Stated Complaint: BACTERIAL INFECTION IN RIGHT LEG Time Seen by Provider: 03/15/18 06:17 Source of Information: Reports: Patient History Limitations: Reports: No Limitations - History of Present Illness INITIAL COMMENTS - FREE TEXT/NARRATIVE: HISTORY AND PHYSICAL: History of present illness: 27-year-old male presenting to emergency department with 2 days of right lower leg pain, swelling, and erythema with past medical history of recurrent lower leg cellulitis and contrast-induced nephropathy. Patient states that yesterday he began to have fever and increased pain and redness to his right lower leg. He has had some associated nausea with vomiting that started yesterday as well as throughout last night. Unknown maximum temp. As above patient has a history of recurrent lower leg cellulitis as well as contrast-induced nephropathy. No history of DVT. Patient was admitted approximately one year ago. He also as per records had what appeared to be "red man syndrome" with vancomycin. He was initially treated at that time with Zosyn and linezolid. Patient denies any other significant medical history. He takes no other daily medications. On exam there is significant erythema from right ankle 2 just below right knee. I did demarcate the area of erythema with marker. There is also significant swelling and tenderness to palpation. Review of systems: As per history of present illness and below otherwise all systems reviewed and negative. Past medical history: As per history of present illness and as reviewed below otherwise noncontributory. Surgical history: As per history of present illness and as reviewed below otherwise noncontributory. Social history: No reported history of drug or alcohol abuse. Family history: As per history of present illness and as reviewed below otherwise noncontributory. Physical exam: See above H&P HEENT: Atraumatic, normocephalic, pupils reactive, negative for conjunctival pallor or scleral icterus, mucous membranes moist, throat clear, neck supple, nontender, trachea midline. Lungs: Clear to auscultation, breath sounds equal bilaterally, chest nontender. Heart: S1S2, regular, negative for clicks, rubs, or JVD. Abdomen: Soft, nondistended, nontender. Negative for masses or hepatosplenomegaly. Negative for costovertebral tenderness. Pelvis: Stable nontender. Genitourinary: Deferred. Rectal: Deferred. Extremities: Atraumatic, negative for cords or calf pain. Neurovascular unremarkable. Neuro: Awake, alert, oriented. Cranial nerves II through XII unremarkable. Cerebellum unremarkable. Motor and sensory unremarkable throughout. Exam nonfocal. Diagnostics: CBC, CMP, blood culture 2, lactate, tib-fib x-ray Therapeutics: 1 L normal saline 1 mg IV Dilaudid 1 Zofran 8 mg IV x 1 Zosyn 3.375 mg IV Linezolid 600 mg IV Impression: Right lower leg cellulitis Right lower leg pain Plan: CBC showed leukocytosis of 13.5 K and lactate was elevated at 2.5 patient was tachycardic and therefore qualified for sepsis protocol. He was started on linezolid as well as Zosyn. I did call Dr. Aponte, hospitalist who accepted patient for admission for cellulitis/sepsis. Definitive disposition and diagnosis as appropriate pending reevaluation and review of above. Right Lower Leg Pain Score (Numeric/FACES): 10 - Related Data Allergies Allergy/AdvReac Type Severity Reaction Status Date / Time Iodinated Contrast- Oral and AdvReac Renal Verified 03/21/17 10:49 IV Dye Failure Home Meds: Home Meds Cephalexin [Keflex] 500 mg PO Q6HR #40 cap 03/24/17 [Rx] Sulfamethoxazole/Trimethoprim [Bactrim Ds Tablet] 1 each PO BID #20 tablet 03/24 [Rx] Past Medical History - Past Health History Medical/Surgical History: Denies Medical/Surgical History HEENT History: Reports: None Cardiovascular History: Reports: None Respiratory History: Reports: None Gastrointestinal History: Reports: Other (See Below) Other Gastrointestinal History: elevation in LFTs, abdominal US 09/2015 showed fatty liver and gallbladder sludge. Genitourinary History: Reports: Other (See Below) Other Genitourinary History: na Musculoskeletal History: Reports: None Neurological History: Reports: Other (See Below) Other Neuro History: hydrocephalus Endocrine/Metabolic History: Reports: None Hematologic History: Reports: None Dermatologic History: Reports: Cellulitis, Chronic Cellulitis Other Dermatologic History: RLE - Infectious Disease History Infectious Disease History: Reports: Chicken Pox - Past Surgical History Neurological Surgical History: Reports: None Social & Family History - Family History Family Medical History: Noncontributory - Caffeine Use Caffeine Use: Reports: Coffee, Soda ED ROS GENERAL - Review of Systems Review Of Systems: ROS reveals no pertinent complaints other than HPI. ED EXAM, SKIN/RASH Exam: See Below Course - Vital Signs Last Recorded V/S: Last Vital Signs Temp 99 F 03/15/18 06:38 Pulse 107 H 03/15/18 06:38 Resp 22 H 03/15/18 06:38 BP 151/74 H 03/15/18 06:38 Pulse Ox 99 03/15/18 06:38 - Orders/Labs/Meds Orders: Active Orders 24 hr Category Date Time Status Tibia Fibula Rt [CR] Stat Exams 03/15/18 07:04 Ordered COMPREHENSIVE METABOLIC PN,CMP [CHEM] Stat Lab 03/15/18 06:36 Received CULTURE BLOOD [BC] Stat Lab 03/15/18 06:28 Ordered CULTURE BLOOD [BC] Stat Lab 03/15/18 06:36 Received Linezolid [Zyvox] 600 mg Med 03/15/18 06:30 Active Premix Bag 1 bag IV Q12H Piperacillin/Tazobactam [Piperacil-Tazobact] 3.375 gm Med 03/15/18 06:30 Active Sodium Chloride 0.9% [Normal Saline] 50 ml IV Q6H Sodium Chloride 0.9% [Normal Saline] 1,000 ml Med 03/15/18 06:27 Active IV STAT Blood Culture x2 Reflex Set [OM.PC] Stat Oth 03/15/18 06:27 Ordered Medication Orders Piperacillin Sod/Tazobactam (Sod 3.375 gm/ Sodium Chloride) 50 mls @ 100 mls/ hr IV Q6H [facility] Sodium Chloride (Normal Saline) 1,000 mls @ 999 mls/hr IV STAT ONE Stop: 03/15/18 07:27 Linezolid 600 mg/ Premix 300 mls @ 300 mls/hr IV Q12H [facility] Labs: Laboratory Tests 03/15/18 03/15/18 Range/Units 06:36 06:36 WBC 13.52 H (4.0-11.0) K/uL RBC 5.56 (4.50-5.90) M/uL Hgb 16.1 (13.0-17.0) g/dL Hct 45.2 (38.0-50.0) % MCV 81.3 (80.0-98.0) fL MCH 29.0 (27.0-32.0) pg MCHC 35.6 (31.0-37.0) g/dL RDW Std Deviation 39.1 (28.0-62.0) fl RDW Coeff of Gabriella 13 (11.0-15.0) % Plt Count 153 (150-400) K/uL MPV 10.90 (7.40-12.00) fL Neut % (Auto) 96.2 H (48.0-80.0) % Lymph % (Auto) 2.4 L (16.0-40.0) % Josephine % (Auto) 1.3 (0.0-15.0) % Eos % (Auto) 0.0 (0.0-7.0) % Baso % (Auto) 0.1 (0.0-1.5) % Neut # (Auto) 13.0 H (1.4-5.7) K/uL Lymph # (Auto) 0.3 L (0.6-2.4) K/uL Josephine # (Auto) 0.2 (0.0-0.8) K/uL Eos # (Auto) 0.0 (0.0-0.7) K/uL Baso # (Auto) 0.0 (0.0-0.1) K/uL Nucleated RBC % 0.0 /100WBC Nucleated RBCs # 0 K/uL Lactate 2.5 H (0.20-2.00) mmol/L Meds: Medications Generic Name Dose Route Start Last Admin Trade Name Freq PRN Reason Stop Dose Admin Piperacillin Sod/Tazobactam 50 mls @ 100 mls/hr 03/15/18 06:30 Sod 3.375 gm/ Sodium Chloride IV Q6H [facility] Sodium Chloride 1,000 mls @ 999 mls/hr 03/15/18 06:27 Normal Saline IV 03/15/18 07:27 STAT ONE Linezolid 600 mg/ Premix 300 mls @ 300 mls/hr 03/15/18 06:30 IV Q12H [facility] Discontinued Medications Generic Name Dose Route Start Last Admin Trade Name Freq PRN Reason Stop Dose Admin Hydromorphone HCl 1 mg 03/15/18 06:53 Dilaudid IVPUSH 03/15/18 06:54 ONETIME ONE Ondansetron HCl 8 mg 03/15/18 06:53 Zofran IVPUSH 03/15/18 06:54 ONETIME ONE Departure - Departure Time of Disposition: 07:05 Disposition: Admitted As Inpatient 64 Condition: Fair Clinical Impression: Cellulitis of leg without foot, right Sepsis Qualifiers: Sepsis type: sepsis due to unspecified organism Qualified Code(s): A41.9 - Sepsis, unspecified organism - Discharge Information Referrals: Alistair Hzael MD [Primary Care Provider] - Forms: ED Department Discharge - My Orders Last 24 Hours: My Active Orders 03/15/18 06:27 Sodium Chloride 0.9% [Normal Saline] 1,000 ml IV STAT Blood Culture x2 Reflex Set [OM.PC] Stat 03/15/18 06:28 CULTURE BLOOD [BC] Stat 03/15/18 06:30 Linezolid [Zyvox] 600 mg Premix Bag 1 bag IV Q12H Piperacillin/Tazobactam [Piperacil-Tazobact] 3.375 gm Sodium Chloride 0.9% [ Normal Saline] 50 ml IV Q6H 03/15/18 06:36 COMPREHENSIVE METABOLIC PN,CMP [CHEM] Stat CULTURE BLOOD [BC] Stat 03/15/18 07:04 Tibia Fibula Rt [CR] Stat - Assessment/Plan Last 24 Hours: My Active Orders 03/15/18 06:27 Sodium Chloride 0.9% [Normal Saline] 1,000 ml IV STAT Blood Culture x2 Reflex Set [OM.PC] Stat 03/15/18 06:28 CULTURE BLOOD [BC] Stat 03/15/18 06:30 Linezolid [Zyvox] 600 mg Premix Bag 1 bag IV Q12H Piperacillin/Tazobactam [Piperacil-Tazobact] 3.375 gm Sodium Chloride 0.9% [ Normal Saline] 50 ml IV Q6H 03/15/18 06:36 COMPREHENSIVE METABOLIC PN,CMP [CHEM] Stat CULTURE BLOOD [BC] Stat 03/15/18 07:04 Tibia Fibula Rt [CR] Stat
[2018-03-15] MEDS ORDERED: HYDROmorphone 1 MG/ML Syringe IVPUSH ONE (06:53)
[2018-03-15] MEDS ORDERED: Ondansetron 4 MG/2 ML SDV IVPUSH ONE (06:53)
[2018-03-15 07:20] LABS: CHLORIDE,CL 100 mmol/L (98-107); SODIUM,NA 137 mmol/L (136-148)
[2018-03-15] MEDS: Piperacillin/Tazobactam 3.375 GM in Sodium Chloride 0.9% 50 ML IV SCH ×4 (07:40→23:31)
--- NOTE | 2018-03-15 12:30 | PCM.HP ---
H&P History of Present Illness - General Date of Service: 03/15/18 Admit Problem/Dx: Admission Diagnosis/Problem Admission Diagnosis/Problem Cellulitis - History of Present Illness Initial Comments - Free Text/Narative: 27 yo male who presents with one day history of right lower leg rash. He has a history of multiple admission for cellulitis of the right lower leg. He presents to the ED with the same symptoms of erythema and edema of the leg. He reported has come in earlier than in the past and the rash is contained to above the ankle to just below the knee. Right Lower Leg Pain Score (Numeric/FACES): 5 - Related Data Allergies/Adverse Reactions: Allergies Allergy/AdvReac Type Severity Reaction Status Date / Time Iodinated Contrast- Oral and AdvReac Renal Verified 03/21/17 10:49 IV Dye Failure Home Medications: Home Meds Cephalexin [Keflex] 500 mg PO Q6HR #40 cap 03/24/17 [Rx] Sulfamethoxazole/Trimethoprim [Bactrim Ds Tablet] 1 each PO BID #20 tablet 03/24 [Rx] Past Medical History - Past Health History Medical/Surgical History: Denies Medical/Surgical History HEENT History: Reports: None Cardiovascular History: Reports: None Respiratory History: Reports: None Gastrointestinal History: Reports: Other (See Below) Other Gastrointestinal History: elevation in LFTs, abdominal US 09/2015 showed fatty liver and gallbladder sludge. Genitourinary History: Reports: Other (See Below) Other Genitourinary History: na Musculoskeletal History: Reports: None Neurological History: Reports: Other (See Below) Other Neuro History: hydrocephalus Endocrine/Metabolic History: Reports: None Hematologic History: Reports: None Dermatologic History: Reports: Cellulitis, Chronic Cellulitis Other Dermatologic History: RLE - Infectious Disease History Infectious Disease History: Reports: Chicken Pox - Past Surgical History Neurological Surgical History: Reports: None Social & Family History - Family History Family Medical History: Noncontributory Other Dermatologic Family History: family history of cellulitis - Tobacco Use Smoking Status *Q: Never Smoker Second Hand Smoke Exposure: No - Caffeine Use Caffeine Use: Reports: Coffee, Energy Drinks, Soda - Recreational Drug Use Recreational Drug Use: No H&P Review of Systems - Review of Systems: Review Of Systems: ROS reveals no pertinent complaints other than HPI. Exam - Exam Exam: See Below - Vital Signs Vital Signs: Last Vital Signs Temp 37.9 C 03/15/18 11:48 Pulse 109 H 03/15/18 11:48 Resp 16 03/15/18 11:48 BP 126/66 03/15/18 11:48 Pulse Ox 100 03/15/18 11:48 Weight: 119.5 kg - Exam General: Alert, Oriented HEENT: Mucosa Moist & [place] Neck: Supple, Trachea Midline Lungs: Clear to Auscultation, Normal Respiratory Effort Cardiovascular: Regular Rate, Regular Rhythm GI/Abdominal Exam: Soft, Non-Tender Extremities: Other (erythema of the right lower leg starting above the ankle extending proximally to below the knee, no drainage or fluctuance noted, full rang of motion of knee and akle.) - Patient Data Lab Results Last 24 hrs: Laboratory Results - last 24 hr 03/15/18 03/15/18 03/15/18 Range/Units 06:36 06:36 06:36 WBC 13.52 H (4.0-11.0) K/uL RBC 5.56 (4.50-5.90) M/uL Hgb 16.1 (13.0-17.0) g/dL Hct 45.2 (38.0-50.0) % MCV 81.3 (80.0-98.0) fL MCH 29.0 (27.0-32.0) pg MCHC 35.6 (31.0-37.0) g/dL RDW Std Deviation 39.1 (28.0-62.0) fl RDW Coeff of Gabriella 13 (11.0-15.0) % Plt Count 153 (150-400) K/uL MPV 10.90 (7.40-12.00) fL Neut % (Auto) 96.2 H (48.0-80.0) % Lymph % (Auto) 2.4 L (16.0-40.0) % [place] % (Auto) 1.3 (0.0-15.0) % Eos % (Auto) 0.0 (0.0-7.0) % Baso % (Auto) 0.1 (0.0-1.5) % Neut # (Auto) 13.0 H (1.4-5.7) K/uL Lymph # (Auto) 0.3 L (0.6-2.4) K/uL [place] # (Auto) 0.2 (0.0-0.8) K/uL Eos # (Auto) 0.0 (0.0-0.7) K/uL Baso # (Auto) 0.0 (0.0-0.1) K/uL Nucleated RBC % 0.0 /100WBC Nucleated RBCs # 0 K/uL Lactate 2.5 H (0.20-2.00) mmol/L Sodium 137 (136-148) mmol/L Potassium 4.3 (3.5-5.1) mmol/L Chloride 100 (98-107) mmol/L Carbon Dioxide 26.2 (21.0-32.0) mmol/L BUN 17 (7.0-18.0) mg/dL Creatinine 1.3 (0.8-1.3) mg/dL Est Cr Clr Drug Dosing 67.48 mL/min Estimated GFR (MDRD) > 60.0 ml/min Glucose 140 H (74-106) mg/dL Calcium 8.8 (8.5-10.1) mg/dL Total Bilirubin 2.5 H (0.2-1.0) mg/dL AST 32 (15-37) IU/L ALT 71 H (14-63) IU/L Alkaline Phosphatase 65 (46-116) U/L Total Protein 7.1 (6.4-8.2) g/dL Albumin 3.8 (3.4-5.0) g/dL Globulin 3.3 (2.0-3.5) g/dL Albumin/Globulin Ratio 1.2 L (1.3-2.8) 03/15/18 Range/Units 11:20 WBC (4.0-11.0) K/uL RBC (4.50-5.90) M/uL Hgb (13.0-17.0) g/dL Hct (38.0-50.0) % MCV (80.0-98.0) fL MCH (27.0-32.0) pg MCHC (31.0-37.0) g/dL RDW Std Deviation (28.0-62.0) fl RDW Coeff of Gabriella (11.0-15.0) % Plt Count (150-400) K/uL MPV (7.40-12.00) fL Neut % (Auto) (48.0-80.0) % Lymph % (Auto) (16.0-40.0) % [place] % (Auto) (0.0-15.0) % Eos % (Auto) (0.0-7.0) % Baso % (Auto) (0.0-1.5) % Neut # (Auto) (1.4-5.7) K/uL Lymph # (Auto) (0.6-2.4) K/uL [place] # (Auto) (0.0-0.8) K/uL Eos # (Auto) (0.0-0.7) K/uL Baso # (Auto) (0.0-0.1) K/uL Nucleated RBC % /100WBC Nucleated RBCs # K/uL Lactate 3.0 H (0.20-2.00) mmol/L Sodium (136-148) mmol/L Potassium (3.5-5.1) mmol/L Chloride (98-107) mmol/L Carbon Dioxide (21.0-32.0) mmol/L BUN (7.0-18.0) mg/dL Creatinine (0.8-1.3) mg/dL Est Cr Clr Drug Dosing mL/min Estimated GFR (MDRD) ml/min Glucose (74-106) mg/dL Calcium (8.5-10.1) mg/dL Total Bilirubin (0.2-1.0) mg/dL AST (15-37) IU/L ALT (14-63) IU/L Alkaline Phosphatase (46-116) U/L Total Protein (6.4-8.2) g/dL Albumin (3.4-5.0) g/dL Globulin (2.0-3.5) g/dL Albumin/Globulin Ratio (1.3-2.8) Result Diagrams: 03/15/18 06:36 03/15/18 06:36 Problem List Initiated/Reviewed/Updated: Yes Orders Last 24hrs: Active Orders 24 hr Category Date Time Status Patient Status [ADT] Stat ADT 03/15/18 07:10 Active Oxygen Therapy [RC] PRN Care 03/15/18 12:25 Ordered Up ad Celina [RC] ASDIRECTED Care 03/15/18 12:25 Ordered VTE/DVT Education [RC] PER UNIT ROUTINE Care 03/15/18 12:25 Ordered Vital Signs [RC] Q4H Care 03/15/18 12:25 Ordered Regular Diet [DIET] Diet 03/15/18 Breakfast Ordered Tibia Fibula Rt [CR] Stat Exams 03/15/18 07:04 Taken BASIC METABOLIC PANEL,BMP [CHEM] AM Lab 03/16/18 05:11 Ordered BASIC METABOLIC PANEL,BMP [CHEM] AM Lab 03/17/18 05:11 Ordered BASIC METABOLIC PANEL,BMP [CHEM] AM Lab 03/18/18 05:11 Ordered CBC WITH AUTO DIFF [HEME] AM Lab 03/16/18 05:11 Ordered CBC WITH AUTO DIFF [HEME] AM Lab 03/17/18 05:11 Ordered CBC WITH AUTO DIFF [HEME] AM Lab 03/18/18 05:11 Ordered CULTURE BLOOD [BC] Stat Lab 03/15/18 06:36 Received CULTURE BLOOD [BC] Stat Lab 03/15/18 07:25 Received LACTIC ACID,WHOLE BLOOD [BG] Q6H Lab 03/15/18 17:00 Ordered LACTIC ACID,WHOLE BLOOD [BG] Q6H Lab 03/15/18 23:00 Ordered LACTIC ACID,WHOLE BLOOD [BG] Q6H Lab 03/16/18 05:00 Ordered LACTIC ACID,WHOLE BLOOD [BG] Q6H Lab 03/16/18 11:00 Ordered LACTIC ACID,WHOLE BLOOD [BG] Q6H Lab 03/16/18 17:00 Ordered LACTIC ACID,WHOLE BLOOD [BG] Q6H Lab 03/16/18 23:00 Ordered Acetaminophen [Tylenol] Med 03/15/18 12:25 Ordered 650 mg PO Q4H PRN Enoxaparin [Lovenox] Med 03/15/18 12:30 Ordered 40 mg SUBCUT Q24H Linezolid [Zyvox] 600 mg Med 03/15/18 21:00 Active Premix Bag 1 bag IV Q12H Piperacillin/Tazobactam [Piperacil-Tazobact] 3.375 gm Med 03/15/18 06:30 Active Sodium Chloride 0.9% [Normal Saline] 50 ml IV Q6H Sodium Chloride 0.9% [Normal Saline] 1,000 ml Med 03/15/18 12:24 Ordered IV .Bolus Blood Culture x2 Reflex Set [OM.PC] Stat Oth 03/15/18 06:27 Ordered Sequential Compression Device [OM.PC] Per Unit Routine Oth 03/15/18 12:25 Ordered Resuscitation Status Routine Resus Stat 03/15/18 12:25 Ordered Medication Orders Piperacillin Sod/Tazobactam (Sod 3.375 gm/ Sodium Chloride) 50 mls @ 100 mls/ hr IV Q6H [facility] Last Admin: 03/15/18 07:40 Dose: 100 mls/hr Linezolid 600 mg/ Premix 300 mls @ 300 mls/hr IV Q12H [facility] Sodium Chloride (Normal Saline) 1,000 mls @ 999 mls/hr IV .Bolus ONE Stop: 03/15/18 13:24 Assessment/Plan Comment:: 27 yo male admitted for cellulitis of leg. Treating with zosyn and linezolid
[2018-03-15] MEDS: Acetaminophen 325 MG Tab PO PRN ×2 (12:39→20:45)
[2018-03-15] MEDS: Enoxaparin 40 MG/0.4 ML Syringe SUBCUT SCH (12:46)
--- NOTE | 2018-03-15 14:41 | CR ---
EXAM DATE: 03/15/18 PATIENT'S AGE: 27 Patient: KENROY PENN Facility: [place], [place] Site . Site : 1990 Study: XRay Extremity Right TIB/FIB [id number]/3/2018 8:19:48 AM Ordering Physician: Noah Johnston Final Report: INDICATION: PAIN FINDINGS: Four views of the left tibia-fibula show no evidence of acute fracture or dislocation. Plantar and posterior calcaneal spurs. No other bony or soft tissue abnormalities identified. Dictated by Fernando Allen MD @ 03/15/2018 8:34:33 AM Dictated by: Fernando Allen MD @ 03/15/2018 08:34:47 (Electronic Signature) Report Signed by Proxy. [facility]
[2018-03-15] MEDS: Sodium Chloride 0.9% 1,000 ML IV SCH (16:02)
[2018-03-15] MEDS: Ondansetron 4 MG/2 ML SDV IVPUSH PRN (17:24)
[2018-03-15] MEDS: oxyCODONE 5 MG Tab PO PRN ×2 (17:29→18:37)
[2018-03-15] MEDS: Linezolid 600 MG in Premix Bag 1 BAG IV SCH (20:47)
[2018-03-16] MEDS: Sodium Chloride 0.9% 1,000 ML IV SCH (02:35)
[2018-03-16] MEDS: oxyCODONE 5 MG Tab PO PRN ×2 (03:35→10:59)
[2018-03-16] MEDS ORDERED: diphenhydrAMINE 25 MG Cap PO PRN (05:09)
[2018-03-16] MEDS: Piperacillin/Tazobactam 3.375 GM in Sodium Chloride 0.9% 50 ML IV SCH ×3 (05:47→17:46)
[2018-03-16] MEDS: Linezolid 600 MG in Premix Bag 1 BAG IV SCH ×2 (08:04→21:25)
--- NOTE | 2018-03-16 08:34 | PCM.PN ---
- General Info Date of Service: 03/16/18 Subjective Update: 27 year old male admitted for cellulitis of right lower leg. He states that it is a little better than yesterday but still causing him pain. His pain is worse with movement and palpation. He denies issues with eating, drinking, going to the bathroom. He denies chest pain, shorntess of breath, or abdominal pain. - Review of Systems General: Reports: Fever Pulmonary: Reports: No Symptoms Cardiovascular: Reports: No Symptoms Gastrointestinal: Reports: No Symptoms Genitourinary: Reports: No Symptoms Musculoskeletal: Reports: Leg Pain Neurological: Reports: No Symptoms Psychiatric: Reports: No Symptoms - Patient Data Vitals - Most Recent: Last Vital Signs Temp 97.7 F 03/16/18 07:55 Pulse 109 H 03/16/18 07:55 Resp 18 03/16/18 07:55 BP 140/71 03/16/18 07:55 Pulse Ox 95 03/16/18 08:18 Weight - Most Recent: 120.202 kg I&O - Last 24 Hours: Intake & Output 03/15/18 03/16/18 03/16/18 22:59 06:59 14:59 Intake Total 350 3100 Output Total 800 920 Balance -450 2180 Lab Results Last 24 Hours: Laboratory Results - last 24 hr 03/15/18 03/15/18 Range/Units 11:20 22:00 Lactate 3.0 H 1.7 (0.20-2.00) mmol/L Fausto Results Last 24 Hours: Microbiology 03/15/18 07:25 Aerobic Blood Culture - Preliminary Blood - Venous - Lab Draw NO GROWTH AFTER 1 DAY Anaerobic Blood Culture - Preliminary NO GROWTH AFTER 1 DAY 03/15/18 06:36 Aerobic Blood Culture - Preliminary Blood - Venous NO GROWTH AFTER 1 DAY Anaerobic Blood Culture - Preliminary NO GROWTH AFTER 1 DAY Med Orders - Current: Current Medications Acetaminophen (Tylenol) 650 mg PO Q4H PRN PRN Reason: Pain (Mild 1-3)/fever Last Admin: 03/15/18 20:45 Dose: 650 mg Diphenhydramine HCl (Benadryl) 25 mg PO Q6H PRN PRN Reason: Itching Last Admin: 03/16/18 05:44 Dose: 25 mg Enoxaparin Sodium (Lovenox) 40 mg SUBCUT Q24H [facility] Last Admin: 03/15/18 12:46 Dose: 40 mg Piperacillin Sod/Tazobactam (Sod 3.375 gm/ Sodium Chloride) 50 mls @ 100 mls/ hr IV Q6H [facility] Last Admin: 03/16/18 05:47 Dose: 100 mls/hr Linezolid 600 mg/ Premix 300 mls @ 300 mls/hr IV Q12H [facility] Last Admin: 03/16/18 08:04 Dose: 300 mls/hr Sodium Chloride (Normal Saline) 1,000 mls @ 125 mls/hr IV ASDIRECTED [facility] Last Admin: 03/16/18 02:35 Dose: 125 mls/hr Ondansetron HCl (Zofran) 4 mg IVPUSH Q4H PRN PRN Reason: Nausea/Vomiting Last Admin: 03/15/18 17:24 Dose: 4 mg Oxycodone HCl (Oxycodone) 5 mg PO Q4H PRN PRN Reason: Pain Last Admin: 03/16/18 03:35 Dose: 5 mg Discontinued Medications Hydromorphone HCl (Dilaudid) 1 mg IVPUSH ONETIME ONE Stop: 03/15/18 06:54 Last Admin: 03/15/18 07:39 Dose: 1 mg Sodium Chloride (Normal Saline) 1,000 mls @ 999 mls/hr IV STAT ONE Stop: 03/15/18 07:27 Last Admin: 03/15/18 07:40 Dose: 999 mls/hr Linezolid 600 mg/ Premix 300 mls @ 300 mls/hr IV Q12H [facility] Last Admin: 03/15/18 09:35 Dose: 300 mls/hr Sodium Chloride (Normal Saline) 1,000 mls @ 999 mls/hr IV .Bolus ONE Stop: 03/15/18 13:24 Last Admin: 03/15/18 12:59 Dose: 999 mls/hr Ondansetron HCl (Zofran) 8 mg IVPUSH ONETIME ONE Stop: 03/15/18 06:54 Last Admin: 03/15/18 07:39 Dose: 8 mg - Exam General: Alert, Oriented, Cooperative, Mild Distress Lungs: Clear to Auscultation, Normal Respiratory Effort Cardiovascular: Regular Rate, Regular Rhythm GI/Abdominal Exam: Normal Bowel Sounds, Soft, Non-Tender, No Distention Extremities: Other (right leg- erythema, swelling from below knee to foot, tender to palpation, warm to touch, able to move extremity but painful) Neurological: No New Focal Deficit Psy/Mental Status: Alert - Problem List Review Problem List Initiated/Reviewed/Updated: Yes - Plan Plan:: 1. Cellulitis right lower extremity- Continue Zosyn and Linezolid. Continue pain control with tylenol and oxycodone. PICC line will be placed for mcfp antibiotics this afternoon. Labs pending, will be drawn with PICC. Will get a US doppler of lower extremity due to increased swelling and pain to rule out DVT. Discontinue IV fluids, patient is eating and drinking well.
--- NOTE | 2018-03-16 11:25 | US ---
ULTRASOUND EXAMINATION OF the right lower extremity WITH DOPPLER HISTORY: Pain FINDINGS: Examination of the right leg was performed from the groin to the calf region. All visualized segment s including common femoral, proximal greater saphenous, superficial femoral, popliteal and calf veins appear patent with good compressibility and augmentation. There is no evidence of deep vein thrombo sis. Mild overlying soft tissue edema is noted within the calf. IMPRESSION: No evidence of a DVT.
[2018-03-16] MEDS: Enoxaparin 40 MG/0.4 ML Syringe SUBCUT SCH (12:02)
[2018-03-16] MEDS: Ondansetron 4 MG/2 ML SDV IVPUSH PRN ×2 (13:47→21:25)
[2018-03-16] MEDS: Acetaminophen 325 MG Tab PO PRN (21:31)
[2018-03-17] MEDS: Piperacillin/Tazobactam 3.375 GM in Sodium Chloride 0.9% 50 ML IV SCH ×4 (00:47→17:46)
[2018-03-17] MEDS: oxyCODONE 5 MG Tab PO PRN (05:47)
--- NOTE | 2018-03-17 09:46 | CR ---
EXAMINATION: Fluoro and ultrasound guided right-sided PICC line placement. HISTORY: Long-term antibiotics. TECHNIQUE/FINDINGS: After written informed consent was obtained from the patient using ultrasound an d Fluoro guidance under aseptic conditions utilizing 1% lidocaine as local anesthesia right basilic v ein was accessed and 5 [place] PICC catheter was deployed with its tip in the distal subclavian. The w ron was able to be advanced into the distal SVC however the catheter could not be further advanced li kristal due to an underlying stricture. The stricture could not be evaluated due to an IV contrast aller gy. The catheter flushes and withdraws blood well. The catheter is flushed with the diluted heparin. The catheter secured well. IMPRESSION: 1. Successful Fluoro and ultrasound guided PICC line placement into the distal subclavian. 2. 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
[2018-03-17] MEDS: Acetaminophen 325 MG Tab PO PRN (10:06)
[2018-03-17] MEDS ORDERED: DAPTOmycin 500 MG Vial IV SCH (11:00)
--- NOTE | 2018-03-17 11:27 | CT ---
EXAMINATION: CT right lower leg without contrast HISTORY: Infection COMPARISON: None TECHNIQUE: Multiplanar and multisequence imaging obtained through the right lower extremity without c ontrast. Coronal and sagittal reconstructions obtained. FINDINGS: Extensive soft tissue edema is noted within the right lower extremity. There is a posterior cutaneous fluid collection noted measuring 4.3 x 1.4 cm, given the location likely represents a blis ter. No definite organized fluid collection identified. No subcutaneous gas. Visualized bone minerali zation appears normal and no knee joint effusion. IMPRESSION: 1. Extensive soft tissue edema and skin thickening noted consistent with cellulitis. 2. No definite organized fluid collection demonstrated to suggest an abscess. 3. Posterior cutaneous based fluid collection, likely a blister.
--- NOTE | 2018-03-17 11:31 | PCM.PN ---
- General Info Date of Service: 03/17/18 Subjective Update: The patient is a 27-year-old male who was admitted for cellulitis of the right leg. He thinks it's a little worse today. The erythema is better but he has now developed a blister on the posterior side of his leg and it is more tender. He denies any issue with eating, drinking, going to the bathroom. He has no chest pain, abdominal pain or shortness of breath. - Review of Systems General: Reports: Fever HEENT: Reports: No Symptoms Pulmonary: Reports: No Symptoms Cardiovascular: Reports: No Symptoms Gastrointestinal: Reports: No Symptoms Genitourinary: Reports: No Symptoms Musculoskeletal: Reports: Leg Pain Skin: Reports: Other (cellulitis) Neurological: Reports: No Symptoms Psychiatric: Reports: No Symptoms - Patient Data Vitals - Most Recent: Last Vital Signs Temp 100.9 F H 03/17/18 07:00 Pulse 123 H 03/17/18 07:00 Resp 18 03/17/18 07:00 BP 148/72 H 03/17/18 07:00 Pulse Ox 93 L 03/17/18 09:00 Weight - Most Recent: 120.202 kg I&O - Last 24 Hours: Intake & Output 03/16/18 03/17/18 03/17/18 22:59 06:59 14:59 Intake Total 790 370 Output Total 650 750 Balance 140 -380 Lab Results Last 24 Hours: Laboratory Results - last 24 hr 03/16/18 03/16/18 03/16/18 Range/Units 13:15 16:30 16:30 WBC 10.05 (4.0-11.0) K/uL RBC 4.91 (4.50-5.90) M/uL Hgb 14.0 (13.0-17.0) g/dL Hct 40.9 (38.0-50.0) % MCV 83.3 (80.0-98.0) fL MCH 28.5 (27.0-32.0) pg MCHC 34.2 (31.0-37.0) g/dL RDW Std Deviation 41.3 (28.0-62.0) fl RDW Coeff of Gabriella 14 (11.0-15.0) % Plt Count 114 L (150-400) K/uL MPV 11.20 (7.40-12.00) fL Neut % (Auto) (48.0-80.0) % Lymph % (Auto) (16.0-40.0) % [place] % (Auto) (0.0-15.0) % Eos % (Auto) (0.0-7.0) % Baso % (Auto) (0.0-1.5) % Neut # (Auto) (1.4-5.7) K/uL Lymph # (Auto) (0.6-2.4) K/uL [place] # (Auto) (0.0-0.8) K/uL Eos # (Auto) (0.0-0.7) K/uL Baso # (Auto) (0.0-0.1) K/uL Add Manual Diff YES Neutrophils % (Manual) 63 (48.0-80.0) % Band Neutrophils % 25 % Lymphocytes % (Manual) 7 L (16.0-40.0) % Monocytes % (Manual) 5 (0.0-15.0) % Nucleated RBC % 0.0 /100WBC Absolute Seg Neuts 6.3 H (1.4-5.7) Band Neutrophils # 2.5 Lymphocytes # (Manual) 0.7 (0.6-2.4) Monocytes # (Manual) 0.5 (0.0-0.8) Nucleated RBCs # 0 K/uL Sodium 137 (136-148) mmol/L Potassium 4.1 (3.5-5.1) mmol/L Chloride 102 (98-107) mmol/L Carbon Dioxide 28.4 (21.0-32.0) mmol/L BUN 14 (7.0-18.0) mg/dL Creatinine 1.4 H (0.8-1.3) mg/dL Est Cr Clr Drug Dosing 62.66 mL/min Estimated GFR (MDRD) 59.9 ml/min Glucose 109 H (74-106) mg/dL Calcium 8.0 L (8.5-10.1) mg/dL Urine Color YELLOW Urine Appearance CLEAR Urine pH 6.0 (5.0-8.0) Ur Specific [place] 1.025 (1.001-1.035) Urine Protein 30 (NEGATIVE) mg/dL Urine Glucose (UA) NEGATIVE (NEGATIVE) mg/dL Urine Ketones NEGATIVE (NEGATIVE) mg/dL Urine Occult Blood SMALL H (NEGATIVE) Urine Nitrite NEGATIVE (NEGATIVE) Urine Bilirubin NEGATIVE (NEGATIVE) Urine Urobilinogen 0.2 (<2.0) EU/dL Ur Leukocyte Esterase NEGATIVE (NEGATIVE) Urine RBC 1-3 (0-2/HPF) Urine WBC 3-5 (0-5/HPF) Ur Epithelial Cells FEW (NONE-FEW) Urine Bacteria FEW (NEGATIVE) 03/17/18 03/17/18 Range/Units 05:55 05:55 WBC 11.35 H (4.0-11.0) K/uL RBC 4.88 (4.50-5.90) M/uL Hgb 13.7 (13.0-17.0) g/dL Hct 40.6 (38.0-50.0) % MCV 83.2 (80.0-98.0) fL MCH 28.1 (27.0-32.0) pg MCHC 33.7 (31.0-37.0) g/dL RDW Std Deviation 41.3 (28.0-62.0) fl RDW Coeff of Gabriella 14 (11.0-15.0) % Plt Count 113 L (150-400) K/uL MPV 11.20 (7.40-12.00) fL Neut % (Auto) 88.3 H (48.0-80.0) % Lymph % (Auto) 7.7 L (16.0-40.0) % [place] % (Auto) 3.7 (0.0-15.0) % Eos % (Auto) 0.0 (0.0-7.0) % Baso % (Auto) 0.3 (0.0-1.5) % Neut # (Auto) 10.0 H (1.4-5.7) K/uL Lymph # (Auto) 0.9 (0.6-2.4) K/uL [place] # (Auto) 0.4 (0.0-0.8) K/uL Eos # (Auto) 0.0 (0.0-0.7) K/uL Baso # (Auto) 0.0 (0.0-0.1) K/uL Add Manual Diff Neutrophils % (Manual) (48.0-80.0) % Band Neutrophils % % Lymphocytes % (Manual) (16.0-40.0) % Monocytes % (Manual) (0.0-15.0) % Nucleated RBC % 0.0 /100WBC Absolute Seg Neuts (1.4-5.7) Band Neutrophils # Lymphocytes # (Manual) (0.6-2.4) Monocytes # (Manual) (0.0-0.8) Nucleated RBCs # 0 K/uL Sodium 135 L (136-148) mmol/L Potassium 3.9 (3.5-5.1) mmol/L Chloride 100 (98-107) mmol/L Carbon Dioxide 28.7 (21.0-32.0) mmol/L BUN 17 (7.0-18.0) mg/dL Creatinine 1.4 H (0.8-1.3) mg/dL Est Cr Clr Drug Dosing 62.66 mL/min Estimated GFR (MDRD) 59.9 ml/min Glucose 118 H (74-106) mg/dL Calcium 8.1 L (8.5-10.1) mg/dL Urine Color Urine Appearance Urine pH (5.0-8.0) Ur Specific [place] (1.001-1.035) Urine Protein (NEGATIVE) mg/dL Urine Glucose (UA) (NEGATIVE) mg/dL Urine Ketones (NEGATIVE) mg/dL Urine Occult Blood (NEGATIVE) Urine Nitrite (NEGATIVE) Urine Bilirubin (NEGATIVE) Urine Urobilinogen (<2.0) EU/dL Ur Leukocyte Esterase (NEGATIVE) Urine RBC (0-2/HPF) Urine WBC (0-5/HPF) Ur Epithelial Cells (NONE-FEW) Urine Bacteria (NEGATIVE) Fausto Results Last 24 Hours: Microbiology 03/15/18 07:25 Aerobic Blood Culture - Preliminary Blood - Venous - Lab Draw NO GROWTH AFTER 2 DAYS Anaerobic Blood Culture - Preliminary NO GROWTH AFTER 2 DAYS 03/15/18 06:36 Aerobic Blood Culture - Preliminary Blood - Venous NO GROWTH AFTER 2 DAYS Anaerobic Blood Culture - Preliminary NO GROWTH AFTER 2 DAYS Med Orders - Current: Current Medications Acetaminophen (Tylenol) 650 mg PO Q4H PRN PRN Reason: Pain (Mild 1-3)/fever Last Admin: 03/17/18 10:06 Dose: 650 mg Diphenhydramine HCl (Benadryl) 25 mg PO Q6H PRN PRN Reason: Itching Last Admin: 03/16/18 05:44 Dose: 25 mg Enoxaparin Sodium (Lovenox) 40 mg SUBCUT Q24H [facility] Last Admin: 03/16/18 12:02 Dose: 40 mg Piperacillin Sod/Tazobactam (Sod 3.375 gm/ Sodium Chloride) 50 mls @ 100 mls/ hr IV Q6H [facility] Last Admin: 03/17/18 05:57 Dose: 100 mls/hr Daptomycin 500 mg/ Sodium (Chloride) 10 mls @ 300 mls/hr IV Q24H [facility] Ondansetron HCl (Zofran) 4 mg IVPUSH Q4H PRN PRN Reason: Nausea/Vomiting Last Admin: 03/16/18 21:25 Dose: 4 mg Oxycodone HCl (Oxycodone) 5 mg PO Q4H PRN PRN Reason: Pain Last Admin: 03/17/18 05:47 Dose: 5 mg Discontinued Medications Hydromorphone HCl (Dilaudid) 1 mg IVPUSH ONETIME ONE Stop: 03/15/18 06:54 Last Admin: 03/15/18 07:39 Dose: 1 mg Sodium Chloride (Normal Saline) 1,000 mls @ 999 mls/hr IV STAT ONE Stop: 03/15/18 07:27 Last Admin: 03/15/18 07:40 Dose: 999 mls/hr Linezolid 600 mg/ Premix 300 mls @ 300 mls/hr IV Q12H [facility] Last Admin: 03/15/18 09:35 Dose: 300 mls/hr Linezolid 600 mg/ Premix 300 mls @ 300 mls/hr IV Q12H [facility] Last Admin: 03/16/18 21:25 Dose: 300 mls/hr Sodium Chloride (Normal Saline) 1,000 mls @ 999 mls/hr IV .Bolus ONE Stop: 03/15/18 13:24 Last Admin: 03/15/18 12:59 Dose: 999 mls/hr Sodium Chloride (Normal Saline) 1,000 mls @ 125 mls/hr IV ASDIRECTED [facility] Last Admin: 03/16/18 02:35 Dose: 125 mls/hr Ondansetron HCl (Zofran) 8 mg IVPUSH ONETIME ONE Stop: 03/15/18 06:54 Last Admin: 03/15/18 07:39 Dose: 8 mg - Exam General: Alert, Oriented, Cooperative, No Acute Distress Lungs: Clear to Auscultation, Normal Respiratory Effort Cardiovascular: Regular Rate, Regular Rhythm GI/Abdominal Exam: Normal Bowel Sounds, Soft, Non-Tender Extremities: Other (right side erythema improving but more swelling and he developed a blister on the posterior side of his leg) Psy/Mental Status: Alert, Normal Affect, Normal Mood - Problem List Review Problem List Initiated/Reviewed/Updated: Yes - My Orders Last 24 Hours: My Active Orders 03/16/18 13:15 URINALYSIS W/MICROSCOPIC [UA W/MICROSCOPIC] [URIN] Routine - Plan Plan:: 1. Cellulitis right lower extremity- Continue Zosyn and switch Linezolid to Daptomycin. PICC line in place. Continue pain control with tylenol and oxycodone. We will get a CT of the leg since he has developed more swelling and pain.
[2018-03-17] MEDS: Linezolid 600 MG in Premix Bag 1 BAG IV SCH (11:44)
[2018-03-17] MEDS: Enoxaparin 40 MG/0.4 ML Syringe SUBCUT SCH (12:03)
[2018-03-17] MEDS: DAPTOmycin 500 MG in Sodium Chloride 0.9% 10 ML IV SCH (13:18)
[2018-03-17] MEDS: Ondansetron 4 MG/2 ML SDV IVPUSH PRN (17:56)
[2018-03-18] MEDS: Piperacillin/Tazobactam 3.375 GM in Sodium Chloride 0.9% 50 ML IV SCH ×4 (00:35→18:31)
[2018-03-18 06:00] LABS: CHLORIDE,CL 104 mmol/L (98-107); SODIUM,NA 139 mmol/L (136-148)
--- NOTE | 2018-03-18 07:48 | PCM.PN ---
- General Info Date of Service: 03/18/18 Subjective Update: The patient is a 27 year old male admitted for cellulitis of the right lower extremity. He thinks it is doing a little better compared to yesterday. He is able to move his foot and has feeling in his toes. Yesterday he developed a blister on the posterior side of the leg which has now popped. He focused on keeping it elevated yesterday. CT done yesterday showed edema and skin thickening consistent with cellulitis. He is eating, drinking, and going to the bathroom without difficulty. No fevers overnight. - Review of Systems General: Reports: No Symptoms HEENT: Reports: No Symptoms Pulmonary: Reports: No Symptoms Cardiovascular: Reports: No Symptoms Gastrointestinal: Reports: No Symptoms Genitourinary: Reports: No Symptoms Musculoskeletal: Reports: Leg Pain Skin: Reports: Other (cellulitis) Neurological: Reports: No Symptoms - Patient Data Vitals - Most Recent: Last Vital Signs Temp 99.6 F 03/18/18 03:00 Pulse 112 H 03/18/18 03:00 Resp 19 03/18/18 03:00 BP 137/73 03/18/18 03:00 Pulse Ox 90 L 03/18/18 03:00 Weight - Most Recent: 120.202 kg I&O - Last 24 Hours: Intake & Output 03/17/18 03/18/18 03/18/18 22:59 06:59 14:59 Intake Total 595 350 Output Total 175 560 Balance 420 -210 Lab Results Last 24 Hours: Laboratory Results - last 24 hr 03/18/18 03/18/18 Range/Units 04:57 05:25 WBC 12.64 H (4.0-11.0) K/uL RBC 4.83 (4.50-5.90) M/uL Hgb 13.7 (13.0-17.0) g/dL Hct 39.9 (38.0-50.0) % MCV 82.6 (80.0-98.0) fL MCH 28.4 (27.0-32.0) pg MCHC 34.3 (31.0-37.0) g/dL RDW Std Deviation 41.6 (28.0-62.0) fl RDW Coeff of Gabriella 14 (11.0-15.0) % Plt Count 121 L (150-400) K/uL MPV 11.90 (7.40-12.00) fL Neut % (Auto) 87.9 H (48.0-80.0) % Lymph % (Auto) 7.0 L (16.0-40.0) % [place] % (Auto) 4.8 (0.0-15.0) % Eos % (Auto) 0.1 (0.0-7.0) % Baso % (Auto) 0.2 (0.0-1.5) % Neut # (Auto) 11.1 H (1.4-5.7) K/uL Lymph # (Auto) 0.9 (0.6-2.4) K/uL [place] # (Auto) 0.6 (0.0-0.8) K/uL Eos # (Auto) 0.0 (0.0-0.7) K/uL Baso # (Auto) 0.0 (0.0-0.1) K/uL Nucleated RBC % 0.0 /100WBC Nucleated RBCs # 0 K/uL Sodium 139 (136-148) mmol/L Potassium 4.7 (3.5-5.1) mmol/L Chloride 104 (98-107) mmol/L Carbon Dioxide 21.7 (21.0-32.0) mmol/L BUN 20 H (7.0-18.0) mg/dL Creatinine 1.0 (0.8-1.3) mg/dL Est Cr Clr Drug Dosing 87.72 mL/min Estimated GFR (MDRD) > 60.0 ml/min Glucose 112 H (74-106) mg/dL Calcium 7.5 L (8.5-10.1) mg/dL Fausto Results Last 24 Hours: Microbiology 03/15/18 07:25 Aerobic Blood Culture - Preliminary Blood - Venous - Lab Draw NO GROWTH AFTER 3 DAYS Anaerobic Blood Culture - Preliminary NO GROWTH AFTER 3 DAYS 03/15/18 06:36 Aerobic Blood Culture - Preliminary Blood - Venous NO GROWTH AFTER 3 DAYS Anaerobic Blood Culture - Preliminary NO GROWTH AFTER 3 DAYS Med Orders - Current: Current Medications Acetaminophen (Tylenol) 650 mg PO Q4H PRN PRN Reason: Pain (Mild 1-3)/fever Last Admin: 03/17/18 10:06 Dose: 650 mg Diphenhydramine HCl (Benadryl) 25 mg PO Q6H PRN PRN Reason: Itching Last Admin: 03/16/18 05:44 Dose: 25 mg Enoxaparin Sodium (Lovenox) 40 mg SUBCUT Q24H [facility] Last Admin: 03/17/18 12:03 Dose: 40 mg Piperacillin Sod/Tazobactam (Sod 3.375 gm/ Sodium Chloride) 50 mls @ 100 mls/ hr IV Q6H [facility] Last Admin: 03/18/18 06:27 Dose: 100 mls/hr Daptomycin 500 mg/ Sodium (Chloride) 10 mls @ 300 mls/hr IV Q24H [facility] Last Admin: 03/17/18 13:18 Dose: 300 mls/hr Ondansetron HCl (Zofran) 4 mg IVPUSH Q4H PRN PRN Reason: Nausea/Vomiting Last Admin: 03/17/18 17:56 Dose: 4 mg Oxycodone HCl (Oxycodone) 5 mg PO Q4H PRN PRN Reason: Pain Last Admin: 03/17/18 05:47 Dose: 5 mg Discontinued Medications Hydromorphone HCl (Dilaudid) 1 mg IVPUSH ONETIME ONE Stop: 03/15/18 06:54 Last Admin: 03/15/18 07:39 Dose: 1 mg Sodium Chloride (Normal Saline) 1,000 mls @ 999 mls/hr IV STAT ONE Stop: 03/15/18 07:27 Last Admin: 03/15/18 07:40 Dose: 999 mls/hr Linezolid 600 mg/ Premix 300 mls @ 300 mls/hr IV Q12H [facility] Last Admin: 03/15/18 09:35 Dose: 300 mls/hr Linezolid 600 mg/ Premix 300 mls @ 300 mls/hr IV Q12H [facility] Last Admin: 03/17/18 11:44 Dose: Not Given Sodium Chloride (Normal Saline) 1,000 mls @ 999 mls/hr IV .Bolus ONE Stop: 03/15/18 13:24 Last Admin: 03/15/18 12:59 Dose: 999 mls/hr Sodium Chloride (Normal Saline) 1,000 mls @ 125 mls/hr IV ASDIRECTED [facility] Last Admin: 03/16/18 02:35 Dose: 125 mls/hr Ondansetron HCl (Zofran) 8 mg IVPUSH ONETIME ONE Stop: 03/15/18 06:54 Last Admin: 03/15/18 07:39 Dose: 8 mg - Exam General: Alert, Oriented, Cooperative Lungs: Clear to Auscultation, Normal Respiratory Effort Cardiovascular: Regular Rate, Regular Rhythm GI/Abdominal Exam: Normal Bowel Sounds, Soft, Non-Tender Extremities: Other (erythema improving right lower leg, swelling is better, blister opened on posterior leg, patient able to move foot/toes, no changes in sensation) Psy/Mental Status: Alert, Normal Affect, Normal Mood - Problem List Review Problem List Initiated/Reviewed/Updated: Yes - Plan Plan:: 1. Cellulitis right lower extremity- Continue Zosyn and Daptomycin. PICC line in place. Continue pain control with tylenol and oxycodone. Patient needs to focus on keeping leg elevated.
[2018-03-18] MEDS: Acetaminophen 325 MG Tab PO PRN (08:28)
[2018-03-18] MEDS: Enoxaparin 40 MG/0.4 ML Syringe SUBCUT SCH (11:51)
[2018-03-18] MEDS: DAPTOmycin 500 MG in Sodium Chloride 0.9% 10 ML IV SCH (12:33)
[2018-03-18] MEDS: Ondansetron 4 MG/2 ML SDV IVPUSH PRN (15:19)
[2018-03-19] MEDS: Piperacillin/Tazobactam 3.375 GM in Sodium Chloride 0.9% 50 ML IV SCH ×5 (00:15→23:33)
[2018-03-19 05:50] LABS: CHLORIDE,CL 103 mmol/L (98-107); SODIUM,NA 139 mmol/L (136-148)
--- NOTE | 2018-03-19 07:30 | PCM.PN ---
- General Info Date of Service: 03/19/18 Subjective Update: The patient is a 27 year old male admitted for cellulitis of the right lower extremity. He has been improving since the switch in antibiotics from linezolid to daptomycin. The erythema, pain, and swelling are improving. The patient is able to move is leg now more easily. Yesterday he had some nausea which has improved. He denies chest pain, shortness of breath, or abdominal pain. - Review of Systems General: Reports: No Symptoms HEENT: Reports: No Symptoms Pulmonary: Reports: No Symptoms Cardiovascular: Reports: No Symptoms Gastrointestinal: Reports: No Symptoms Genitourinary: Reports: No Symptoms Musculoskeletal: Reports: Leg Pain (improving) Skin: Reports: Other (cellulitis improving, swelling improving) Neurological: Reports: No Symptoms - Patient Data Vitals - Most Recent: Last Vital Signs Temp 98.6 F 03/19/18 04:00 Pulse 98 03/19/18 04:00 Resp 18 03/19/18 04:00 BP 134/72 03/19/18 04:00 Pulse Ox 94 L 03/19/18 04:00 Weight - Most Recent: 120.202 kg I&O - Last 24 Hours: Intake & Output 03/18/18 03/19/18 03/19/18 22:59 06:59 14:59 Intake Total 170 930 Output Total 400 651 Balance -230 279 Lab Results Last 24 Hours: Laboratory Results - last 24 hr 03/19/18 03/19/18 Range/Units 05:30 05:30 WBC 10.07 (4.0-11.0) K/uL RBC 4.74 (4.50-5.90) M/uL Hgb 13.6 (13.0-17.0) g/dL Hct 39.5 (38.0-50.0) % MCV 83.3 (80.0-98.0) fL MCH 28.7 (27.0-32.0) pg MCHC 34.4 (31.0-37.0) g/dL RDW Std Deviation 42.4 (28.0-62.0) fl RDW Coeff of Gabriella 14 (11.0-15.0) % Plt Count 124 L (150-400) K/uL MPV 11.00 (7.40-12.00) fL Neut % (Auto) 77.9 (48.0-80.0) % Lymph % (Auto) 12.9 L (16.0-40.0) % [place] % (Auto) 8.3 (0.0-15.0) % Eos % (Auto) 0.6 (0.0-7.0) % Baso % (Auto) 0.3 (0.0-1.5) % Neut # (Auto) 7.8 H (1.4-5.7) K/uL Lymph # (Auto) 1.3 (0.6-2.4) K/uL [place] # (Auto) 0.8 (0.0-0.8) K/uL Eos # (Auto) 0.1 (0.0-0.7) K/uL Baso # (Auto) 0.0 (0.0-0.1) K/uL Nucleated RBC % 0.0 /100WBC Nucleated RBCs # 0 K/uL Sodium 139 (136-148) mmol/L Potassium 3.6 (3.5-5.1) mmol/L Chloride 103 (98-107) mmol/L Carbon Dioxide 29.9 (21.0-32.0) mmol/L BUN 21 H (7.0-18.0) mg/dL Creatinine 1.1 (0.8-1.3) mg/dL Est Cr Clr Drug Dosing 79.75 mL/min Estimated GFR (MDRD) > 60.0 ml/min Glucose 131 H (74-106) mg/dL Calcium 8.3 L (8.5-10.1) mg/dL Fausto Results Last 24 Hours: Microbiology 03/15/18 06:36 Aerobic Blood Culture - Preliminary Blood - Venous NO GROWTH AFTER 4 DAYS Anaerobic Blood Culture - Preliminary NO GROWTH AFTER 4 DAYS 03/15/18 07:25 Aerobic Blood Culture - Preliminary Blood - Venous - Lab Draw NO GROWTH AFTER 3 DAYS Anaerobic Blood Culture - Preliminary NO GROWTH AFTER 3 DAYS Med Orders - Current: Current Medications Acetaminophen (Tylenol) 650 mg PO Q4H PRN PRN Reason: Pain (Mild 1-3)/fever Last Admin: 03/18/18 08:28 Dose: 650 mg Diphenhydramine HCl (Benadryl) 25 mg PO Q6H PRN PRN Reason: Itching Last Admin: 03/16/18 05:44 Dose: 25 mg Enoxaparin Sodium (Lovenox) 40 mg SUBCUT Q24H [facility] Last Admin: 03/18/18 11:51 Dose: 40 mg Piperacillin Sod/Tazobactam (Sod 3.375 gm/ Sodium Chloride) 50 mls @ 100 mls/ hr IV Q6H [facility] Last Admin: 03/19/18 05:33 Dose: 100 mls/hr Daptomycin 500 mg/ Sodium (Chloride) 10 mls @ 300 mls/hr IV Q24H [facility] Last Admin: 03/18/18 12:33 Dose: 300 mls/hr Ondansetron HCl (Zofran) 4 mg IVPUSH Q4H PRN PRN Reason: Nausea/Vomiting Last Admin: 03/18/18 15:19 Dose: 4 mg Oxycodone HCl (Oxycodone) 5 mg PO Q4H PRN PRN Reason: Pain Last Admin: 03/17/18 05:47 Dose: 5 mg Discontinued Medications Hydromorphone HCl (Dilaudid) 1 mg IVPUSH ONETIME ONE Stop: 03/15/18 06:54 Last Admin: 03/15/18 07:39 Dose: 1 mg Sodium Chloride (Normal Saline) 1,000 mls @ 999 mls/hr IV STAT ONE Stop: 03/15/18 07:27 Last Admin: 03/15/18 07:40 Dose: 999 mls/hr Linezolid 600 mg/ Premix 300 mls @ 300 mls/hr IV Q12H [facility] Last Admin: 03/15/18 09:35 Dose: 300 mls/hr Linezolid 600 mg/ Premix 300 mls @ 300 mls/hr IV Q12H [facility] Last Admin: 03/17/18 11:44 Dose: Not Given Sodium Chloride (Normal Saline) 1,000 mls @ 999 mls/hr IV .Bolus ONE Stop: 03/15/18 13:24 Last Admin: 03/15/18 12:59 Dose: 999 mls/hr Sodium Chloride (Normal Saline) 1,000 mls @ 125 mls/hr IV ASDIRECTED [facility] Last Admin: 03/16/18 02:35 Dose: 125 mls/hr Ondansetron HCl (Zofran) 8 mg IVPUSH ONETIME ONE Stop: 03/15/18 06:54 Last Admin: 03/15/18 07:39 Dose: 8 mg - Exam General: Alert, Oriented, Cooperative Lungs: Clear to Auscultation, Normal Respiratory Effort Cardiovascular: Regular Rate, Regular Rhythm GI/Abdominal Exam: Normal Bowel Sounds, Soft, Non-Tender Extremities: Other (right lower leg, erythema/swelling/tenderness improving- open blister with clear-yellow discharge on posterior leg, full ROM, no decreased sensation) Psy/Mental Status: Alert, Normal Affect, Normal Mood - Problem List Review Problem List Initiated/Reviewed/Updated: Yes - My Orders Last 24 Hours: My Active Orders 03/20/18 05:11 BASIC METABOLIC PANEL,BMP [CHEM] AM CBC WITH AUTO DIFF [HEME] AM 03/21/18 05:11 BASIC METABOLIC PANEL,BMP [CHEM] AM CBC WITH AUTO DIFF [HEME] AM 03/22/18 05:11 BASIC METABOLIC PANEL,BMP [CHEM] AM CBC WITH AUTO DIFF [HEME] AM 03/23/18 05:11 BASIC METABOLIC PANEL,BMP [CHEM] AM CBC WITH AUTO DIFF [HEME] AM - Plan Plan:: 1. Cellulitis right lower extremity- Improving-exam improving/no white count/ no fevers overnight. Continue Zosyn and Daptomycin. PICC line in place. Continue pain control with tylenol and oxycodone. Patient needs to focus on keeping leg elevated.
[2018-03-19] MEDS: DAPTOmycin 500 MG in Sodium Chloride 0.9% 10 ML IV SCH (12:07)
[2018-03-19] MEDS: Enoxaparin 40 MG/0.4 ML Syringe SUBCUT SCH (12:10)
[2018-03-20] MEDS: Piperacillin/Tazobactam 3.375 GM in Sodium Chloride 0.9% 50 ML IV SCH ×3 (05:50→18:20)
[2018-03-20 07:52] LABS: CHLORIDE,CL 101 mmol/L (98-107); SODIUM,NA 140 mmol/L (136-148)
[2018-03-20] MEDS: DAPTOmycin 500 MG in Sodium Chloride 0.9% 10 ML IV SCH (13:06)
[2018-03-20] MEDS: Enoxaparin 40 MG/0.4 ML Syringe SUBCUT SCH (13:14)
--- NOTE | 2018-03-20 14:14 | PCM.PN ---
- General Info Date of Service: 03/20/18 - Review of Systems Systems Review Comment:: leg edema and erythema improving. - Patient Data Vitals - Most Recent: Last Vital Signs Temp 36.7 C 03/20/18 12:00 Pulse 88 03/20/18 12:00 Resp 16 03/20/18 12:00 BP 115/69 03/20/18 12:00 Pulse Ox 97 03/20/18 12:00 Weight - Most Recent: 122.5 kg I&O - Last 24 Hours: Intake & Output 03/19/18 03/20/18 03/20/18 22:59 06:59 14:59 Intake Total 110 800 Output Total 700 Balance 110 100 Lab Results Last 24 Hours: Laboratory Results - last 24 hr 03/20/18 03/20/18 Range/Units 07:30 07:30 WBC 8.84 (4.0-11.0) K/uL RBC 4.39 L (4.50-5.90) M/uL Hgb 12.5 L (13.0-17.0) g/dL Hct 36.8 L (38.0-50.0) % MCV 83.8 (80.0-98.0) fL MCH 28.5 (27.0-32.0) pg MCHC 34.0 (31.0-37.0) g/dL RDW Std Deviation 42.1 (28.0-62.0) fl RDW Coeff of Gabriella 14 (11.0-15.0) % Plt Count 139 L (150-400) K/uL MPV 11.30 (7.40-12.00) fL Add Manual Diff YES Neutrophils % (Manual) 60 (48.0-80.0) % Band Neutrophils % 4 % Lymphocytes % (Manual) 31 (16.0-40.0) % Monocytes % (Manual) 4 (0.0-15.0) % Eosinophils % (Manual) 1 (0.0-7.0) % Nucleated RBC % 0.0 /100WBC Absolute Seg Neuts 5.3 (1.4-5.7) Band Neutrophils # 0.4 Lymphocytes # (Manual) 2.7 H (0.6-2.4) Monocytes # (Manual) 0.4 (0.0-0.8) Eosinophils # (Manual) 0.1 (0.0-0.7) Nucleated RBCs # 0 K/uL Sodium 140 (136-148) mmol/L Potassium 3.7 (3.5-5.1) mmol/L Chloride 101 (98-107) mmol/L Carbon Dioxide 32.7 H (21.0-32.0) mmol/L BUN 17 (7.0-18.0) mg/dL Creatinine 0.9 (0.8-1.3) mg/dL Est Cr Clr Drug Dosing 97.47 mL/min Estimated GFR (MDRD) > 60.0 ml/min Glucose 101 (74-106) mg/dL Calcium 8.0 L (8.5-10.1) mg/dL Fausto Results Last 24 Hours: Microbiology 03/15/18 07:25 Aerobic Blood Culture - Final Blood - Venous - Lab Draw NO GROWTH AFTER 5 DAYS Anaerobic Blood Culture - Final NO GROWTH AFTER 5 DAYS 03/15/18 06:36 Aerobic Blood Culture - Final Blood - Venous NO GROWTH AFTER 5 DAYS Anaerobic Blood Culture - Final NO GROWTH AFTER 5 DAYS Med Orders - Current: Current Medications Acetaminophen (Tylenol) 650 mg PO Q4H PRN PRN Reason: Pain (Mild 1-3)/fever Last Admin: 03/18/18 08:28 Dose: 650 mg Diphenhydramine HCl (Benadryl) 25 mg PO Q6H PRN PRN Reason: Itching Last Admin: 03/16/18 05:44 Dose: 25 mg Enoxaparin Sodium (Lovenox) 40 mg SUBCUT Q24H [facility] Last Admin: 03/20/18 13:14 Dose: 40 mg Piperacillin Sod/Tazobactam (Sod 3.375 gm/ Sodium Chloride) 50 mls @ 100 mls/ hr IV Q6H [facility] Last Admin: 03/20/18 13:11 Dose: 100 mls/hr Daptomycin 500 mg/ Sodium (Chloride) 10 mls @ 300 mls/hr IV Q24H [facility] Last Admin: 03/20/18 13:06 Dose: 300 mls/hr Ondansetron HCl (Zofran) 4 mg IVPUSH Q4H PRN PRN Reason: Nausea/Vomiting Last Admin: 03/18/18 15:19 Dose: 4 mg Oxycodone HCl (Oxycodone) 5 mg PO Q4H PRN PRN Reason: Pain Last Admin: 03/17/18 05:47 Dose: 5 mg Discontinued Medications Hydromorphone HCl (Dilaudid) 1 mg IVPUSH ONETIME ONE Stop: 03/15/18 06:54 Last Admin: 03/15/18 07:39 Dose: 1 mg Sodium Chloride (Normal Saline) 1,000 mls @ 999 mls/hr IV STAT ONE Stop: 03/15/18 07:27 Last Admin: 03/15/18 07:40 Dose: 999 mls/hr Linezolid 600 mg/ Premix 300 mls @ 300 mls/hr IV Q12H [facility] Last Admin: 03/15/18 09:35 Dose: 300 mls/hr Linezolid 600 mg/ Premix 300 mls @ 300 mls/hr IV Q12H [facility] Last Admin: 03/17/18 11:44 Dose: Not Given Sodium Chloride (Normal Saline) 1,000 mls @ 999 mls/hr IV .Bolus ONE Stop: 03/15/18 13:24 Last Admin: 03/15/18 12:59 Dose: 999 mls/hr Sodium Chloride (Normal Saline) 1,000 mls @ 125 mls/hr IV ASDIRECTED [facility] Last Admin: 03/16/18 02:35 Dose: 125 mls/hr Ondansetron HCl (Zofran) 8 mg IVPUSH ONETIME ONE Stop: 03/15/18 06:54 Last Admin: 03/15/18 07:39 Dose: 8 mg - Exam General: Alert, Oriented Lungs: Clear to Auscultation, Normal Respiratory Effort Cardiovascular: Regular Rate, Regular Rhythm GI/Abdominal Exam: Normal Bowel Sounds, Soft, Non-Tender Extremities: Normal Range of Motion, Non-Tender, Other (right leg edema and erythem improving, large ulcer over calf draining serosangenous fluid) Skin: Warm, Dry, Intact Neurological: No New Focal Deficit - Problem List Review Problem List Initiated/Reviewed/Updated: Yes - Plan Plan:: 27 yo male admitted for right lower extremity cellulitis. Will continue Zosyn and daptomycin
[2018-03-21] MEDS: Piperacillin/Tazobactam 3.375 GM in Sodium Chloride 0.9% 50 ML IV SCH ×4 (00:10→17:42)
[2018-03-21 07:09] LABS: CHLORIDE,CL 102 mmol/L (98-107); SODIUM,NA 140 mmol/L (136-148)
--- NOTE | 2018-03-21 08:22 | PCM.PN ---
- General Info Date of Service: 03/21/18 Subjective Update: Patient is a 27 year old male admitted for cellulitis of right lower extremitiy. He is improving daily. He feels his leg is better. He denies any chest pain, shortness of breath, abdominal pain. He is eating, drinking, and going to the bathroom without difficulty. - Review of Systems General: Reports: No Symptoms HEENT: Reports: No Symptoms Pulmonary: Reports: No Symptoms Cardiovascular: Reports: No Symptoms Gastrointestinal: Reports: No Symptoms Genitourinary: Reports: No Symptoms Musculoskeletal: Reports: No Symptoms, Leg Pain (improving) Skin: Reports: Other (cellulitis improving) Neurological: Reports: No Symptoms Psychiatric: Reports: No Symptoms - Patient Data Vitals - Most Recent: Last Vital Signs Temp 97.4 F 03/21/18 03:32 Pulse 75 03/21/18 03:32 Resp 19 03/21/18 03:32 BP 123/65 03/21/18 03:32 Pulse Ox 95 03/21/18 03:32 Weight - Most Recent: 119 kg I&O - Last 24 Hours: Intake & Output 03/20/18 03/21/18 03/21/18 22:59 06:59 14:59 Intake Total 1118 600 Output Total 550 Balance 568 600 Lab Results Last 24 Hours: Laboratory Results - last 24 hr 03/21/18 03/21/18 Range/Units 06:49 06:49 WBC 9.95 (4.0-11.0) K/uL RBC 4.83 (4.50-5.90) M/uL Hgb 13.7 (13.0-17.0) g/dL Hct 40.2 (38.0-50.0) % MCV 83.2 (80.0-98.0) fL MCH 28.4 (27.0-32.0) pg MCHC 34.1 (31.0-37.0) g/dL RDW Std Deviation 40.8 (28.0-62.0) fl RDW Coeff of Gabriella 14 (11.0-15.0) % Plt Count 185 (150-400) K/uL MPV 10.90 (7.40-12.00) fL Add Manual Diff YES Neutrophils % (Manual) 77 (48.0-80.0) % Band Neutrophils % 6 % Lymphocytes % (Manual) 12 L (16.0-40.0) % Monocytes % (Manual) 5 (0.0-15.0) % Nucleated RBC % 0.0 /100WBC Absolute Seg Neuts 7.7 H (1.4-5.7) Band Neutrophils # 0.6 Lymphocytes # (Manual) 1.2 (0.6-2.4) Monocytes # (Manual) 0.5 (0.0-0.8) Nucleated RBCs # 0 K/uL Sodium 140 (136-148) mmol/L Potassium 3.6 (3.5-5.1) mmol/L Chloride 102 (98-107) mmol/L Carbon Dioxide 31.4 (21.0-32.0) mmol/L BUN 14 (7.0-18.0) mg/dL Creatinine 0.9 (0.8-1.3) mg/dL Est Cr Clr Drug Dosing 97.47 mL/min Estimated GFR (MDRD) > 60.0 ml/min Glucose 108 H (74-106) mg/dL Calcium 8.2 L (8.5-10.1) mg/dL Fausto Results Last 24 Hours: Microbiology 03/15/18 07:25 Aerobic Blood Culture - Final Blood - Venous - Lab Draw NO GROWTH AFTER 5 DAYS Anaerobic Blood Culture - Final NO GROWTH AFTER 5 DAYS 03/15/18 06:36 Aerobic Blood Culture - Final Blood - Venous NO GROWTH AFTER 5 DAYS Anaerobic Blood Culture - Final NO GROWTH AFTER 5 DAYS Med Orders - Current: Current Medications Acetaminophen (Tylenol) 650 mg PO Q4H PRN PRN Reason: Pain (Mild 1-3)/fever Last Admin: 03/18/18 08:28 Dose: 650 mg Diphenhydramine HCl (Benadryl) 25 mg PO Q6H PRN PRN Reason: Itching Last Admin: 03/16/18 05:44 Dose: 25 mg Enoxaparin Sodium (Lovenox) 40 mg SUBCUT Q24H [facility] Last Admin: 03/20/18 13:14 Dose: 40 mg Piperacillin Sod/Tazobactam (Sod 3.375 gm/ Sodium Chloride) 50 mls @ 100 mls/ hr IV Q6H [facility] Last Admin: 03/21/18 05:51 Dose: 100 mls/hr Daptomycin 500 mg/ Sodium (Chloride) 10 mls @ 300 mls/hr IV Q24H [facility] Last Admin: 03/20/18 13:06 Dose: 300 mls/hr Ondansetron HCl (Zofran) 4 mg IVPUSH Q4H PRN PRN Reason: Nausea/Vomiting Last Admin: 03/18/18 15:19 Dose: 4 mg Oxycodone HCl (Oxycodone) 5 mg PO Q4H PRN PRN Reason: Pain Last Admin: 03/17/18 05:47 Dose: 5 mg Discontinued Medications Hydromorphone HCl (Dilaudid) 1 mg IVPUSH ONETIME ONE Stop: 03/15/18 06:54 Last Admin: 03/15/18 07:39 Dose: 1 mg Sodium Chloride (Normal Saline) 1,000 mls @ 999 mls/hr IV STAT ONE Stop: 03/15/18 07:27 Last Admin: 03/15/18 07:40 Dose: 999 mls/hr Linezolid 600 mg/ Premix 300 mls @ 300 mls/hr IV Q12H [facility] Last Admin: 03/15/18 09:35 Dose: 300 mls/hr Linezolid 600 mg/ Premix 300 mls @ 300 mls/hr IV Q12H [facility] Last Admin: 03/17/18 11:44 Dose: Not Given Sodium Chloride (Normal Saline) 1,000 mls @ 999 mls/hr IV .Bolus ONE Stop: 03/15/18 13:24 Last Admin: 03/15/18 12:59 Dose: 999 mls/hr Sodium Chloride (Normal Saline) 1,000 mls @ 125 mls/hr IV ASDIRECTED [facility] Last Admin: 03/16/18 02:35 Dose: 125 mls/hr Ondansetron HCl (Zofran) 8 mg IVPUSH ONETIME ONE Stop: 03/15/18 06:54 Last Admin: 03/15/18 07:39 Dose: 8 mg - Exam General: Alert, Oriented, Cooperative, No Acute Distress Lungs: Clear to Auscultation, Normal Respiratory Effort Cardiovascular: Regular Rate, Regular Rhythm GI/Abdominal Exam: Normal Bowel Sounds, Soft, Non-Tender, No Distention Skin: Other (right lower extremity- erythema/swelling improving, full ROM, normal sensation, blister opended and draining serosaguinous fluid) Neurological: No New Focal Deficit Psy/Mental Status: Alert, Normal Affect, Normal Mood - Problem List Review Problem List Initiated/Reviewed/Updated: Yes - My Orders Last 24 Hours: My Active Orders 03/22/18 05:11 BASIC METABOLIC PANEL,BMP [CHEM] AM CBC WITH AUTO DIFF [HEME] AM 03/23/18 05:11 BASIC METABOLIC PANEL,BMP [CHEM] AM CBC WITH AUTO DIFF [HEME] AM - Plan Plan:: 1. Right lower leg cellulitis- continue daptomycin and Zosyn. Continue to encourage elevation of extremitiy. Pain control with tylenol and oxycodone.
[2018-03-21] MEDS: DAPTOmycin 500 MG in Sodium Chloride 0.9% 10 ML IV SCH (12:44)
[2018-03-21] MEDS: Enoxaparin 40 MG/0.4 ML Syringe SUBCUT SCH (12:44)
[2018-03-21] MEDS: Polyethylene Glycol 3350 Powder 17 GM Packet PO SCH (13:16)
[2018-03-21] MEDS: Docusate Sodium 100 MG Cap PO SCH (13:16)
[2018-03-22 05:52] LABS: CHLORIDE,CL 102 mmol/L (98-107); SODIUM,NA 137 mmol/L (136-148)
[2018-03-22] MEDS: Piperacillin/Tazobactam 3.375 GM in Sodium Chloride 0.9% 50 ML IV SCH ×5 (05:52→18:32)
[2018-03-22] MEDS ORDERED: Potassium Chloride 20 MEQ Tab.ER PO ONE (07:15)
--- NOTE | 2018-03-22 08:13 | PCM.PN ---
- General Info Date of Service: 03/22/18 Subjective Update: The patient is a 27 year old male admitted from cellulitis of right lower extremity. His mobility has improved as the cellulitis has improved. He does endorse some nausea today. He denies any chest pain, shortness of breath, or abdominal pain. He denies lower leg pain today. - Review of Systems General: Reports: No Symptoms HEENT: Reports: No Symptoms Pulmonary: Reports: No Symptoms Cardiovascular: Reports: No Symptoms Gastrointestinal: Reports: No Symptoms Genitourinary: Reports: No Symptoms Musculoskeletal: Reports: No Symptoms Skin: Reports: Other (erythema, swelling improving) Neurological: Reports: No Symptoms Psychiatric: Reports: No Symptoms - Patient Data Vitals - Most Recent: Last Vital Signs Temp 97.4 F 03/22/18 04:00 Pulse 88 03/22/18 04:00 Resp 20 03/22/18 04:00 BP 130/66 03/22/18 04:00 Pulse Ox 96 03/22/18 04:00 Weight - Most Recent: 119 kg I&O - Last 24 Hours: Intake & Output 03/21/18 03/22/18 03/22/18 22:59 06:59 14:59 Intake Total 1286 560 Output Total 700 Balance 586 560 Lab Results Last 24 Hours: Laboratory Results - last 24 hr 03/22/18 03/22/18 Range/Units 05:04 05:04 WBC 10.43 (4.0-11.0) K/uL RBC 4.70 (4.50-5.90) M/uL Hgb 13.4 (13.0-17.0) g/dL Hct 38.9 (38.0-50.0) % MCV 82.8 (80.0-98.0) fL MCH 28.5 (27.0-32.0) pg MCHC 34.4 (31.0-37.0) g/dL RDW Std Deviation 40.7 (28.0-62.0) fl RDW Coeff of Gabriella 13 (11.0-15.0) % Plt Count 201 (150-400) K/uL MPV 11.00 (7.40-12.00) fL Add Manual Diff YES Neutrophils % (Manual) 77 (48.0-80.0) % Band Neutrophils % 5 % Lymphocytes % (Manual) 12 L (16.0-40.0) % Monocytes % (Manual) 6 (0.0-15.0) % Nucleated RBC % 0.0 /100WBC Absolute Seg Neuts 8.0 H (1.4-5.7) Band Neutrophils # 0.5 Lymphocytes # (Manual) 1.3 (0.6-2.4) Monocytes # (Manual) 0.6 (0.0-0.8) Nucleated RBCs # 0 K/uL Sodium 137 (136-148) mmol/L Potassium 3.2 L (3.5-5.1) mmol/L Chloride 102 (98-107) mmol/L Carbon Dioxide 28.5 (21.0-32.0) mmol/L BUN 11 (7.0-18.0) mg/dL Creatinine 0.8 (0.8-1.3) mg/dL Est Cr Clr Drug Dosing 109.65 mL/min Estimated GFR (MDRD) > 60.0 ml/min Glucose 153 H (74-106) mg/dL Calcium 8.2 L (8.5-10.1) mg/dL Med Orders - Current: Current Medications Acetaminophen (Tylenol) 650 mg PO Q4H PRN PRN Reason: Pain (Mild 1-3)/fever Last Admin: 03/18/18 08:28 Dose: 650 mg Diphenhydramine HCl (Benadryl) 25 mg PO Q6H PRN PRN Reason: Itching Last Admin: 03/16/18 05:44 Dose: 25 mg Docusate Sodium (Colace) 100 mg PO DAILY [facility] Last Admin: 03/21/18 13:16 Dose: 100 mg Enoxaparin Sodium (Lovenox) 40 mg SUBCUT Q24H [facility] Last Admin: 03/21/18 12:44 Dose: 40 mg Piperacillin Sod/Tazobactam (Sod 3.375 gm/ Sodium Chloride) 50 mls @ 100 mls/ hr IV Q6H [facility] Last Admin: 03/22/18 05:52 Dose: 100 mls/hr Daptomycin 500 mg/ Sodium (Chloride) 10 mls @ 300 mls/hr IV Q24H [facility] Last Admin: 03/21/18 12:44 Dose: 300 mls/hr Ondansetron HCl (Zofran) 4 mg IVPUSH Q4H PRN PRN Reason: Nausea/Vomiting Last Admin: 03/18/18 15:19 Dose: 4 mg Oxycodone HCl (Oxycodone) 5 mg PO Q4H PRN PRN Reason: Pain Last Admin: 03/17/18 05:47 Dose: 5 mg Polyethylene Glycol (Miralax) 17 gm PO DAILY [facility] Last Admin: 03/21/18 13:16 Dose: 17 gm Discontinued Medications Hydromorphone HCl (Dilaudid) 1 mg IVPUSH ONETIME ONE Stop: 03/15/18 06:54 Last Admin: 03/15/18 07:39 Dose: 1 mg Sodium Chloride (Normal Saline) 1,000 mls @ 999 mls/hr IV STAT ONE Stop: 03/15/18 07:27 Last Admin: 03/15/18 07:40 Dose: 999 mls/hr Linezolid 600 mg/ Premix 300 mls @ 300 mls/hr IV Q12H [facility] Last Admin: 03/15/18 09:35 Dose: 300 mls/hr Linezolid 600 mg/ Premix 300 mls @ 300 mls/hr IV Q12H [facility] Last Admin: 03/17/18 11:44 Dose: Not Given Sodium Chloride (Normal Saline) 1,000 mls @ 999 mls/hr IV .Bolus ONE Stop: 03/15/18 13:24 Last Admin: 03/15/18 12:59 Dose: 999 mls/hr Sodium Chloride (Normal Saline) 1,000 mls @ 125 mls/hr IV ASDIRECTED [facility] Last Admin: 03/16/18 02:35 Dose: 125 mls/hr Ondansetron HCl (Zofran) 8 mg IVPUSH ONETIME ONE Stop: 03/15/18 06:54 Last Admin: 03/15/18 07:39 Dose: 8 mg Potassium Chloride (Klor-Con M20) 40 meq PO ONETIME ONE Stop: 03/22/18 07:16 - Exam General: Alert, Oriented, Cooperative Lungs: Clear to Auscultation, Normal Respiratory Effort Cardiovascular: Regular Rate, Regular Rhythm GI/Abdominal Exam: Normal Bowel Sounds, Soft, Non-Tender, No Distention Extremities: Other (erythema,swelling, pain, mobility improving, open blister on posterior leg still producing serosanginous fluid) Neurological: No New Focal Deficit Psy/Mental Status: Alert, Normal Affect, Normal Mood - Problem List Review Problem List Initiated/Reviewed/Updated: Yes - My Orders Last 24 Hours: My Active Orders 03/21/18 12:45 Docusate Sodium [Colace] 100 mg PO DAILY Polyethylene Glycol 3350 [MiraLAX] 17 gm PO DAILY 03/23/18 05:11 BASIC METABOLIC PANEL,BMP [CHEM] AM CBC WITH AUTO DIFF [HEME] AM - Plan Plan:: 1. Right lower leg cellulitis- continue daptomycin and Zosyn. Continue to encourage elevation of extremitiy. Pain control with tylenol and oxycodone. 2. Hypokalemia- replace with 40 mEq and recheck in the AM.
[2018-03-22] MEDS: Polyethylene Glycol 3350 Powder 17 GM Packet PO SCH (09:10)
[2018-03-22] MEDS: Docusate Sodium 100 MG Cap PO SCH (09:10)
[2018-03-22] MEDS: Enoxaparin 40 MG/0.4 ML Syringe SUBCUT SCH (12:12)
[2018-03-22] MEDS: DAPTOmycin 500 MG in Sodium Chloride 0.9% 10 ML IV SCH (12:13)
[2018-03-23] MEDS: Piperacillin/Tazobactam 3.375 GM in Sodium Chloride 0.9% 50 ML IV SCH ×3 (00:18→11:53)
[2018-03-23 05:48] LABS: CHLORIDE,CL 103 mmol/L (98-107); SODIUM,NA 136 mmol/L (136-148)
[2018-03-23] MEDS: Docusate Sodium 100 MG Cap PO SCH (09:02)
[2018-03-23] MEDS: Polyethylene Glycol 3350 Powder 17 GM Packet PO SCH (09:02)
--- NOTE | 2018-03-23 09:43 | PCM.DCSUM1 ---
Discharge Summary - Hospital Course HPI Initial Comments: Admission Date: 03/15/18 Discharge Date: 03/23/18 Admission Diagnosis: 1. Cellulitis of right lower extremity Discharge Diagnosis: 1. Cellulitis of right lower extremity- improved 2. Hypokalemia- resolved Procedures: None Consults: None Hospital Course: The patient is a 27-year-old male who presented to the ER with right lower leg cellulitis. He has a history of cellulitis in this leg. In the ER, initial workup included a CBC with elevated white count, a CMP, blood cultures that were negative, a lactate within normal limits. They got an x-ray of the tib-fib that showed no evidence of fracture, dislocation, no bony or soft tissue abnormality but did see plantar and posterior calcaneal spurs. The patient was started on IV fluids, Zosyn and linezolid. He was admitted to the floor as an inpatient. On the floor the next day, his white count had resolved but the swelling was worse so an ultrasound of the lower extremity was done to rule out DVT. They did not see any evidence of a DVT. A PICC line was placed and his fluids were DC'd since he was eating and drinking without difficulty. The following day his white count became elevated, so linezolid was switched to daptomycin and he was continued on Zosyn. His pain and swelling, also worsened that day so a CT was done which showed edema and skin thickening consistent with cellulitis but no evidence of abscess. The following days, the patient focused on keeping the leg elevated. He slowly improved daily in terms of his erythema, swelilng,and pain and his white count resolved. He did develop hypokalemia which was replaced and resolved. Disposition: Home Discharge Condition: vitals stable, tolerating oral diet, ambulating without difficulty, cellulitis improved Discharge Instructions: regular diet as tolerated, activity as tolerated, elevation of leg when sitting or if he develops swelling, keep area clean and dry. Symptoms to reports to physicain include fever/chills, worsening erythema/ swelling/pain or right lower leg, drainage, chest pain, shortness of breath, abdominal pain, nausea or vomiting. Discharge Medications: Sulfamethoxazole/Trimethoprim [Bactrim Ds Tablet] 1 each PO BID 10 Days #20 tablet Follow-up: Dr. Hazel, PCP, on 03/31/18 - Discharge Data Discharge Date: 03/23/18 Discharge Disposition: Home, Self-Care 01 Condition: Stable - Discharge Plan Prescriptions/Med Rec: Sulfamethoxazole/Trimethoprim [Bactrim Ds Tablet] 1 each PO BID 10 Days #20 tablet Home Medications: Home Meds Sulfamethoxazole/Trimethoprim [Bactrim Ds Tablet] 1 each PO BID 10 Days #20 tablet 03/23/18 [Rx] Patient Handouts: Cellulitis, Adult, [id number] Referrals: [facility] [Outside] Alistair Hazel MD [Primary Care Provider] - 03/31/18 7:45 am - Patient Data Vitals - Most Recent: Last Vital Signs Temp 98.2 F 03/23/18 07:45 Pulse 84 03/23/18 07:45 Resp 19 03/23/18 07:45 BP 116/68 03/23/18 07:45 Pulse Ox 92 L 03/23/18 07:45 Weight - Most Recent: 119 kg I&O - Last 24 hours: Intake & Output 03/22/18 03/23/18 03/23/18 22:59 06:59 14:59 Intake Total 668 800 Output Total 700 Balance 668 100 Lab Results - Last 24 hrs: Laboratory Results - last 24 hr 03/23/18 03/23/18 Range/Units 05:30 05:30 WBC 10.24 (4.0-11.0) K/uL RBC 4.77 (4.50-5.90) M/uL Hgb 13.3 (13.0-17.0) g/dL Hct 39.4 (38.0-50.0) % MCV 82.6 (80.0-98.0) fL MCH 27.9 (27.0-32.0) pg MCHC 33.8 (31.0-37.0) g/dL RDW Std Deviation 40.9 (28.0-62.0) fl RDW Coeff of Gabriella 14 (11.0-15.0) % Plt Count 232 (150-400) K/uL MPV 11.20 (7.40-12.00) fL Add Manual Diff YES Neutrophils % (Manual) 67 (48.0-80.0) % Band Neutrophils % 3 % Lymphocytes % (Manual) 21 (16.0-40.0) % Monocytes % (Manual) 8 (0.0-15.0) % Eosinophils % (Manual) 1 (0.0-7.0) % Nucleated RBC % 0.0 /100WBC Absolute Seg Neuts 6.9 H (1.4-5.7) Band Neutrophils # 0.3 Lymphocytes # (Manual) 2.2 (0.6-2.4) Monocytes # (Manual) 0.8 (0.0-0.8) Eosinophils # (Manual) 0.1 (0.0-0.7) Nucleated RBCs # 0 K/uL Sodium 136 (136-148) mmol/L Potassium 4.3 (3.5-5.1) mmol/L Chloride 103 (98-107) mmol/L Carbon Dioxide 23.7 (21.0-32.0) mmol/L BUN 14 (7.0-18.0) mg/dL Creatinine 0.9 (0.8-1.3) mg/dL Est Cr Clr Drug Dosing 97.47 mL/min Estimated GFR (MDRD) > 60.0 ml/min Glucose 143 H (74-106) mg/dL Calcium 8.7 (8.5-10.1) mg/dL Med Orders - Current: Current Medications Acetaminophen (Tylenol) 650 mg PO Q4H PRN PRN Reason: Pain (Mild 1-3)/fever Last Admin: 03/18/18 08:28 Dose: 650 mg Diphenhydramine HCl (Benadryl) 25 mg PO Q6H PRN PRN Reason: Itching Last Admin: 03/16/18 05:44 Dose: 25 mg Docusate Sodium (Colace) 100 mg PO DAILY [facility] Last Admin: 03/23/18 09:02 Dose: Not Given Enoxaparin Sodium (Lovenox) 40 mg SUBCUT Q24H [facility] Last Admin: 03/22/18 12:12 Dose: 40 mg Piperacillin Sod/Tazobactam (Sod 3.375 gm/ Sodium Chloride) 50 mls @ 100 mls/ hr IV Q6H [facility] Last Admin: 03/23/18 05:34 Dose: 100 mls/hr Daptomycin 500 mg/ Sodium (Chloride) 10 mls @ 300 mls/hr IV Q24H [facility] Last Admin: 03/22/18 12:13 Dose: 300 mls/hr Ondansetron HCl (Zofran) 4 mg IVPUSH Q4H PRN PRN Reason: Nausea/Vomiting Last Admin: 03/18/18 15:19 Dose: 4 mg Oxycodone HCl (Oxycodone) 5 mg PO Q4H PRN PRN Reason: Pain Last Admin: 03/17/18 05:47 Dose: 5 mg Polyethylene Glycol (Miralax) 17 gm PO DAILY [facility] Last Admin: 03/23/18 09:02 Dose: Not Given Discontinued Medications Hydromorphone HCl (Dilaudid) 1 mg IVPUSH ONETIME ONE Stop: 03/15/18 06:54 Last Admin: 03/15/18 07:39 Dose: 1 mg Sodium Chloride (Normal Saline) 1,000 mls @ 999 mls/hr IV STAT ONE Stop: 03/15/18 07:27 Last Admin: 03/15/18 07:40 Dose: 999 mls/hr Linezolid 600 mg/ Premix 300 mls @ 300 mls/hr IV Q12H [facility] Last Admin: 03/15/18 09:35 Dose: 300 mls/hr Linezolid 600 mg/ Premix 300 mls @ 300 mls/hr IV Q12H [facility] Last Admin: 03/17/18 11:44 Dose: Not Given Sodium Chloride (Normal Saline) 1,000 mls @ 999 mls/hr IV .Bolus ONE Stop: 03/15/18 13:24 Last Admin: 03/15/18 12:59 Dose: 999 mls/hr Sodium Chloride (Normal Saline) 1,000 mls @ 125 mls/hr IV ASDIRECTED [facility] Last Admin: 03/16/18 02:35 Dose: 125 mls/hr Ondansetron HCl (Zofran) 8 mg IVPUSH ONETIME ONE Stop: 03/15/18 06:54 Last Admin: 03/15/18 07:39 Dose: 8 mg Potassium Chloride (Klor-Con M20) 40 meq PO ONETIME ONE Stop: 03/22/18 07:16 Last Admin: 03/22/18 09:09 Dose: 40 meq
[2018-03-23 11:40] VITALS: BP 122/73
[2018-03-23] MEDS: Enoxaparin 40 MG/0.4 ML Syringe SUBCUT SCH (11:52)
[2018-03-23] MEDS: DAPTOmycin 500 MG in Sodium Chloride 0.9% 10 ML IV SCH (12:34)
== END 2018-03-23 13:45 | disposition home or self-care (01) | DRG 603 ==
LOC: MW.ED 06:14 → MW.MS 07:10
PROVIDERS: ADMIT Internal Medicine; ATTEND Internal Medicine
DX: A41.9 Sepsis, unspecified organism (principal); L03.115 Cellulitis of right lower limb; E87.6 Hypokalemia; Z91.041 Radiographic dye allergy status; Z79.2 Long term (current) use of antibiotics
CPT/HCPCS: 36415; 36569; 73590-26-RT; 73590-RT; 73700-26-RT; 73700-RT; 76937; 76937-26; 77001; 77001-26; 80048; 80053; 81001; 83605; 85025; 87040; 93971-26-RT; 93971-RT; 96365; 96375; 99283; 99284-25; A9270-GY; J0878; J1170; J1650; J2020; J2405; J2543; J7040; J7050

== ENCOUNTER 2018-11-18 10:47 | Emergency (ER) | payer SELFPAY ==
[2018-11-18] MEDS ORDERED: Sodium Chloride 0.9% 1,000 ML IV ONE (11:05)
[2018-11-18] MEDS ORDERED: Ondansetron 4 MG/2 ML SDV IVPUSH ONE (11:05)
--- NOTE | 2018-11-18 11:16 | EDM.PDOC ---
ED HPI GENERAL MEDICAL PROBLEM - General Chief Complaint: Lower Extremity Injury/Pain Stated Complaint: leg pain Time Seen by Provider: 11/18/18 10:48 Source of Information: Reports: Patient History Limitations: Reports: No Limitations - History of Present Illness INITIAL COMMENTS - FREE TEXT/NARRATIVE: HISTORY AND PHYSICAL: History of present illness: Patient is a 27-year-old male who presents to the ED today for concern of right lower leg cellulitis. Patient has had a history of multiple admissions for cellulitis of the same leg with the same symptoms of erythema, edema, and increase in pain. Patient states he started noticing the symptoms can last night and this morning has felt nauseous. with a few episodes of vomiting today. Patient states he's had the same symptoms he has had for prior admissions in the past. Patient states he has not taken anything for his symptoms at this time. Patient was seen in the ED on 03/15/18 for similar symptoms as today of swelling of the right leg, erythema of the leg, an increase in pain. Patient also had nausea and vomiting at that time and was admitted due to sepsis protocol for cellulitis/sepsis concern. Patient denies fever, chills, chest pain, shortness of breath, or cough. Denies headache, neck stiff ness, change in vision, syncope, or near syncope. Denies abdominal pain, diarrhea, constipation, or dysuria. Has not noted any blood in urine or stool. Patient has been eating and drinking appropriately. Review of systems: As per history of present illness and below otherwise all systems reviewed and negative. Past medical history: As per history of present illness and as reviewed below otherwise noncontributory. Surgical history: As per history of present illness and as reviewed below otherwise noncontributory. Social history: See social history for further information Family history: As per history of present illness and as reviewed below otherwise noncontributory. Physical exam: General: Patient is alert, oriented, and in no acute distress. Patient sitting comfortably on exam table. HEENT: Atraumatic, normocephalic, pupils equal and reactive bilaterally, negative for conjunctival pallor or scleral icterus, mucous membranes moist, TMs normal bilaterally, throat clear, neck supple, nontender, trachea midline. No drooling or trismus noted. No meningeal signs. No hot potato voice noted. Lungs: Clear to auscultation, breath sounds equal bilaterally, chest nontender. Heart: S1S2, regular rate and rhythm without overt murmur Abdomen: Soft, nondistended, nontender. Negative for masses or hepatosplenomegaly. Negative for costovertebral tenderness. Pelvis: Stable nontender. Genitourinary: Deferred. Rectal: Deferred. Skin: Intact, warm, dry. No lesions or rashes noted. Extremities: Neurovascular unremarkable. Right foot/calf is erythematous, warm , edematous, to the mid shaft tibia. I demarkated area with marker. Moderate pain to palpation of generalized area. Patient has full range of motion of the digits on the right foot, the right ankle, and knee. Dorsalis pedis and posterior tibial pulses grossly intact with capillary refill less than 2 seconds. Neuro: Awake, alert, oriented. Cranial nerves II through XII unremarkable. Cerebellum unremarkable. Motor and sensory unremarkable throughout. Exam nonfocal. Notes: Dr. Arguelles verbally involved in patient care. Patient has a within normal limits white blood cell count and lactate. His vitals have been stable and are within normal limits. Patient was informed of these findings and discussed how outpatient antibiotics would be the treatment for his cellulitis at this time. Patient is insistent about admission for IV antibiotics. I will give him IV Rocephin here in the ED, the patient as he does not meet requirements for admission. Discussed the importance for close follow- up with his primary care provider. I did demarcate the area of cellulitis with marker and instructed patient to keep an eye for spreading of infection or improvement. Dr. Arguelles also noted this and agreeable to care plan. Discussed the importance for follow-up with his primary care provider, Dr. Cheng, within the next week. Voices understanding and is agreeable to plan of care. Denies any further questions or concerns at this time. Diagnostics: CBC, CMP, UA, lactate, tib-fib x-ray, flat x-ray, venous Doppler LE Therapeutics: NS, Zofran, Rocephin Prescription: Bactrim, Zofran Impression: Right lower leg cellulitis Plan: 1. Take medication as prescribed. You can alternate ibuprofen and Tylenol as directed for pain and discomfort 2. Follow-up with your primary care provider as discussed. 3. Return to the ED as needed and as discussed. Definitive disposition and diagnosis as appropriate pending reevaluation and review of above. Right Foot Pain Score (Numeric/FACES): 5 - Related Data Allergies Allergy/AdvReac Type Severity Reaction Status Date / Time vancomycin Allergy Rash Verified 11/18/18 11:08 Iodinated Contrast- Oral and AdvReac Renal Verified 11/18/18 11:08 IV Dye Failure Home Meds: Home Meds . [No Known Home Meds] 11/18/18 [History] Past Medical History - Past Health History Medical/Surgical History: Denies Medical/Surgical History HEENT History: Reports: None Cardiovascular History: Reports: None Respiratory History: Reports: None Gastrointestinal History: Reports: Other (See Below) Other Gastrointestinal History: elevation in LFTs, abdominal US 09/2015 showed fatty liver and gallbladder sludge. Genitourinary History: Reports: Other (See Below) Other Genitourinary History: na Musculoskeletal History: Reports: None Neurological History: Reports: Other (See Below) Other Neuro History: hydrocephalus Endocrine/Metabolic History: Reports: None Hematologic History: Reports: None Dermatologic History: Reports: Cellulitis, Chronic Cellulitis Other Dermatologic History: RLE - Infectious Disease History Infectious Disease History: Reports: Chicken Pox - Past Surgical History Neurological Surgical History: Reports: None Social & Family History - Family History Family Medical History: Noncontributory Other Dermatologic Family History: family history of cellulitis - Caffeine Use Caffeine Use: Reports: Coffee, Energy Drinks, Soda Review of Systems - Review of Systems Review Of Systems: ROS reveals no pertinent complaints other than HPI. ED EXAM, GENERAL - Physical Exam Exam: See Below (See dictation) Course - Vital Signs Last Recorded V/S: Last Vital Signs Temp 37.2 C 11/18/18 11:08 Pulse 118 H 11/18/18 11:08 Resp 18 11/18/18 11:08 BP 143/97 H 11/18/18 11:08 Pulse Ox 98 11/18/18 11:08 - Orders/Labs/Meds Orders: Active Orders 24 hr Category Date Time Status UA RFX ABDIRAHMAN AND CULT IF INDIC [URIN] Stat Lab 11/18/18 11:04 Ordered cefTRIAXone [Rocephin in Dextrose,Iso-Osm 1 GM/50 ML] 1 Med 11/18/18 12:33 Ordered gm Premix Bag 1 bag IV ONETIME Medication Orders Ceftriaxone Sodium/Dextrose 1 (gm/ Premix) 50 mls @ 100 mls/hr IV ONETIME ONE Stop: 11/18/18 13:02 Labs: Laboratory Tests 11/18/18 11/18/18 11/18/18 Range/Units 11:26 11:26 11:26 WBC 9.91 (4.0-11.0) K/uL RBC 5.84 (4.50-5.90) M/uL Hgb 16.9 (13.0-17.0) g/dL Hct 47.8 (38.0-50.0) % MCV 81.8 (80.0-98.0) fL MCH 28.9 (27.0-32.0) pg MCHC 35.4 (31.0-37.0) g/dL RDW Std Deviation 39.2 (28.0-62.0) fl RDW Coeff of Gabriella 13 (11.0-15.0) % Plt Count 193 (150-400) K/uL MPV 10.80 (7.40-12.00) fL Neut % (Auto) 89.4 H (48.0-80.0) % Lymph % (Auto) 5.0 L (16.0-40.0) % [place] % (Auto) 5.0 (0.0-15.0) % Eos % (Auto) 0.5 (0.0-7.0) % Baso % (Auto) 0.1 (0.0-1.5) % Neut # (Auto) 8.9 H (1.4-5.7) K/uL Lymph # (Auto) 0.5 L (0.6-2.4) K/uL [place] # (Auto) 0.5 (0.0-0.8) K/uL Eos # (Auto) 0.1 (0.0-0.7) K/uL Baso # (Auto) 0.0 (0.0-0.1) K/uL Nucleated RBC % 0.0 /100WBC Nucleated RBCs # 0 K/uL Lactate 1.6 (0.20-2.00) mmol/L Sodium 136 (136-148) mmol/L Potassium 4.3 (3.5-5.1) mmol/L Chloride 102 (98-107) mmol/L Carbon Dioxide 24.7 (21.0-32.0) mmol/L BUN 18 (7.0-18.0) mg/dL Creatinine 0.9 (0.8-1.3) mg/dL Est Cr Clr Drug Dosing 93.53 mL/min Estimated GFR (MDRD) > 60.0 ml/min Glucose 125 H (74-106) mg/dL Calcium 8.9 (8.5-10.1) mg/dL Total Bilirubin 1.2 H (0.2-1.0) mg/dL AST 23 (15-37) IU/L ALT 58 (14-63) IU/L Alkaline Phosphatase 81 (46-116) U/L Total Protein 7.7 (6.4-8.2) g/dL Albumin 4.2 (3.4-5.0) g/dL Globulin 3.5 (2.6-4.0) g/dL Albumin/Globulin Ratio 1.2 (0.9-1.6) Meds: Medications Generic Name Dose Route Start Last Admin Trade Name Freq PRN Reason Stop Dose Admin Ceftriaxone Sodium/Dextrose 1 50 mls @ 100 mls/hr 11/18/18 12:33 gm/ Premix IV 11/18/18 13:02 ONETIME ONE Discontinued Medications Generic Name Dose Route Start Last Admin Trade Name Freq PRN Reason Stop Dose Admin Sodium Chloride 1,000 mls @ 999 mls/hr 11/18/18 11:05 11/18/18 11:40 Normal Saline IV 11/18/18 12:05 999 mls/hr STAT ONE Administration Ondansetron HCl 4 mg 11/18/18 11:05 11/18/18 11:41 Zofran IVPUSH 11/18/18 11:06 4 mg ONETIME ONE Administration Departure - Departure Time of Disposition: 12:42 Disposition: Home, Self-Care 01 Clinical Impression: Cellulitis of right lower leg - Discharge Information Instructions: Cellulitis, Adult, [id number] Referrals: PCP,None [Primary Care Provider] - Forms: ED Department Discharge Additional Instructions: The following information is given to patients seen in the emergency department who are being discharged to home. This information is to outline your options for follow-up care. We provide all patients seen in our emergency department with a follow-up referral. The need for follow-up, as well as the timing and circumstances, are variable depending upon the specifics of your emergency department visit. If you don't have a primary care physician on staff, we will provide you with a referral. We always advise you to contact your personal physician following an emergency department visit to inform them of the circumstance of the visit and for follow-up with them and/or the need for any referrals to a consulting specialist. The emergency department will also refer you to a specialist when appropriate. This referral assures that you have the opportunity for follow-up care with a specialist. All of these measure are taken in an effort to provide you with optimal care, which includes your follow-up. Under all circumstances we always encourage you to contact your private physician who remains a resource for coordinating your care. When calling for follow-up care, please make the office aware that this follow-up is from your recent emergency room visit. If for any reason you are refused follow-up, please contact the [facility] Emergency Department at and asked to speak to the emergency department charge nurse. [facility] [address] [place] [id number] [place] [address] 1. Take medication as prescribed. You can alternate ibuprofen and Tylenol as directed for pain and discomfort 2. Follow-up with your primary care provider as discussed. 3. Return to the ED as needed and as discussed. - My Orders Last 24 Hours: My Active Orders 11/18/18 11:04 UA RFX ABDIRAHMAN AND CULT IF INDIC [URIN] Stat 11/18/18 12:33 cefTRIAXone [Rocephin in Dextrose,Iso-Osm 1 GM/50 ML] 1 gm Premix Bag 1 bag IV ONETIME - Assessment/Plan Last 24 Hours: My Active Orders 11/18/18 11:04 UA RFX ABDIRAHMAN AND CULT IF INDIC [URIN] Stat 11/18/18 12:33 cefTRIAXone [Rocephin in Dextrose,Iso-Osm 1 GM/50 ML] 1 gm Premix Bag 1 bag IV ONETIME
[2018-11-18 11:59] LABS: CHLORIDE,CL 102 mmol/L (98-107); SODIUM,NA 136 mmol/L (136-148)
--- NOTE | 2018-11-18 12:09 | CR ---
EXAMINATION: Right foot and right tibia and fibula HISTORY: Pain COMPARISON: 03/15/2018 TECHNIQUE: 2 views of the right tibia and fibula and 2 views of the right foot FINDINGS: There is no acute osseous abnormality, dislocation, or fracture. Bone mineralization and joint spaces are preserved. Small plantar and Achilles calcaneal enthesophytes. Moderate diffuse soft tissue swelling noted. No suprapatellar joint effusion. IMPRESSION: Soft tissue swelling without an acute osseous abnormality.
--- NOTE | 2018-11-18 12:32 | US ---
ULTRASOUND EXAMINATION OF the right lower extremity WITH DOPPLER HISTORY: Pain FINDINGS: Examination of the right leg was performed from the groin to the calf region. All visualized segments including common femoral, proximal greater saphenous, superficial femoral, popliteal and calf veins appear patent with good compressibility and augmentation. There is no evidence of deep vein thrombosis. IMPRESSION: No evidence of a DVT.
[2018-11-18] MEDS ORDERED: cefTRIAXone 1 GM in Premix Bag 1 BAG IV ONE (12:33)
[2018-11-18 13:05] VITALS: BP 152/75
== END 2018-11-18 14:40 | disposition home or self-care (01) ==
LOC: MW.ED 10:47
DX: L03.115 Cellulitis of right lower limb (principal); Z88.1 Allergy status to other antibiotic agents; Z91.041 Radiographic dye allergy status
CPT/HCPCS: 36415; 73590; 73620; 80053; 83605; 85025; 93971; 96361; 96365; 96375; 99284; A4217; J0696; J2405; J7040

== ENCOUNTER 2019-02-01 16:14 | Inpatient (IN) | payer MEDICARE, OTHER ==
[2019-02-01] MEDS ORDERED: Sodium Chloride 0.9% 2.5 ML Syringe FLUSH PRN (16:20)
[2019-02-01] MEDS ORDERED: Sodium Chloride 0.9% 10 ML Syringe FLUSH PRN (16:20)
[2019-02-01] MEDS ORDERED: Linezolid 600 MG in Premix Bag 1 BAG IV ONE (16:35)
[2019-02-01] MEDS ORDERED: Piperacillin/Tazobactam 3.375 GM in Sodium Chloride 0.9% 50 ML IV ONE (16:35)
[2019-02-01] MEDS ORDERED: Ondansetron 4 MG/2 ML SDV IVPUSH ONE (16:36)
--- NOTE | 2019-02-01 16:36 | EDM.PDOC ---
ED HPI GENERAL MEDICAL PROBLEM - General Chief Complaint: Gastrointestinal Problem Stated Complaint: CELLULITIS /VOMITING Time Seen by Provider: 02/01/19 16:27 Source of Information: Reports: Patient History Limitations: Reports: No Limitations - History of Present Illness INITIAL COMMENTS - FREE TEXT/NARRATIVE: HISTORY AND PHYSICAL: History of present illness: Patient is a 28-year-old male who presents to the emergency room with his grandfather (guardian) who complains of right lower extremity cellulitis. Patient was at [facility] earlier today for evaluation of this, was referred to our emergency room as Dr. Gomez felt he needed admission with IV antibiotics. Patient does have a history of lower extremity cellulitis which has required IV antibiotics in the past. Over the past 2 days he has noticed increased redness and swelling of the right posterior lower extremity. Subjective fever and chills. Increased pain associated with nausea and vomiting. Patient denies any headache, change in vision, syncope or near syncope. Denies any chest pain, back pain, shortness of breath or cough. Denies any abdominal pain, diarrhea, constipation or dysuria. Has not noted any blood in urine or stool. Patient has been eating and drinking appropriately. Review of systems: As per history of present illness and below otherwise all systems reviewed and negative. Past medical history: As per history of present illness and as reviewed below otherwise noncontributory. Surgical history: As per history of present illness and as reviewed below otherwise noncontributory. Social history: See social history for further information Family history: As per history of present illness and as reviewed below otherwise noncontributory. Physical exam: General: Well-developed and well-nourished 28-year-old male. Alert and oriented. Nontoxic appearing and in no acute distress. Patient's grandfather is at bedside who is also his guardian/caregiver and does help with the interviewing process. HEENT: Atraumatic, normocephalic, pupils equal and reactive bilaterally, negative for conjunctival pallor or scleral icterus, mucous membranes moist, nontender, trachea midline. No drooling or trismus noted. No meningeal signs. No hot potato voice noted. Lungs: Clear to auscultation, breath sounds equal bilaterally, chest nontender. Heart: S1S2, regular rate and rhythm without overt murmur Abdomen: Soft, nondistended, obese, nontender. Negative for masses. Negative for costovertebral tenderness. Skin: Diffuse erythema to the right posterior tib-fib with soft tissue swelling. Area is warm to the touch. Superficial abrasion noted to right rob. Otherwise remaining skin is intact, warm, dry. No lesions or rashes noted. Extremities: See skin for details. Ambulatory into the emergency room. Atraumatic, moves all extremities per self without difficulty or deficits, negative for cords or calf pain. +2 pitting edema bilaterally. Neurovascular unremarkable. Neuro: Awake, alert, oriented. Cranial nerves II through XII unremarkable. Cerebellum unremarkable. Motor and sensory unremarkable throughout. Exam nonfocal. Notes: I did receive a phone call from Dr Gomez regarding this patient. He believes the patient needs IV fluids and antibiotics. Encouraged him to send the patient no diagnostics were done previously. Patient does have an allergy to vancomycin. From his previous admission for cellulitis it appears that he received IV Zosyn and Zyvox with good coverage. Antibiotics will be hung after the blood cultures are obtained. Leukocytosis with elevated lactate. IV antibiotics are running. Dr. Gómez was consulted on this case and agreeable to keeping this patient. Diagnostics: CBC, CMP, blood cultures 2, lactate, right tib-fib x-ray Therapeutics: IV Zosyn, IV Zyvox Impression: Cellulitis Sepsis Plan: Admission to Med/Surg Definitive disposition and diagnosis as appropriate pending reevaluation and review of above. right lower leg Pain Score (Numeric/FACES): 10 - Related Data Allergies Allergy/AdvReac Type Severity Reaction Status Date / Time vancomycin Allergy Rash Verified 02/01/19 21:45 Iodinated Contrast- Oral and AdvReac Renal Verified 02/01/19 21:45 IV Dye Failure Home Meds: Home Meds Acetaminophen [Tylenol] 650 mg PO TID 02/01/19 [History] Past Medical History - Past Health History Medical/Surgical History: Denies Medical/Surgical History HEENT History: Reports: None Cardiovascular History: Reports: None Respiratory History: Reports: None Gastrointestinal History: Reports: Other (See Below) Other Gastrointestinal History: elevation in LFTs, abdominal US 09/2015 showed fatty liver and gallbladder sludge. Genitourinary History: Reports: None, UTI, Recurrent, Other (See Below) Other Genitourinary History: na Musculoskeletal History: Reports: None Neurological History: Reports: Other (See Below) Other Neuro History: hydrocephalus Psychiatric History: Reports: None Endocrine/Metabolic History: Reports: Obesity/BMI 30+ Hematologic History: Reports: None Immunologic History: Reports: None Oncologic (Cancer) History: Reports: None Dermatologic History: Reports: Cellulitis, Chronic Cellulitis Other Dermatologic History: RLE - Infectious Disease History Infectious Disease History: Reports: Chicken Pox - Past Surgical History Head Surgeries/Procedures: Reports: None HEENT Surgical History: Reports: None Cardiovascular Surgical History: Reports: None Respiratory Surgical History: Reports: None GI Surgical History: Reports: None Male Surgical History: Reports: None Endocrine Surgical History: Reports: None Neurological Surgical History: Reports: None Musculoskeletal Surgical History: Reports: None Oncologic Surgical History: Reports: None Dermatological Surgical History: Reports: None Social & Family History - Family History Family Medical History: Noncontributory Other Dermatologic Family History: family history of cellulitis - Tobacco Use Smoking Status *Q: Never Smoker Second Hand Smoke Exposure: No - Caffeine Use Caffeine Use: Reports: None - Recreational Drug Use Recreational Drug Use: No ED ROS GENERAL - Review of Systems Review Of Systems: ROS reveals no pertinent complaints other than HPI. ED EXAM, GENERAL - Physical Exam Exam: See Below (See dictation) Course - Vital Signs Last Recorded V/S: Last Vital Signs Temp 97.8 F 02/05/19 07:10 Pulse 100 02/05/19 07:10 Resp 18 02/05/19 07:10 BP 125/71 02/05/19 07:10 Pulse Ox 94 L 02/05/19 07:10 - Orders/Labs/Meds Orders: Medication Orders Acetaminophen (Tylenol) 650 mg PO Q4H PRN PRN Reason: Pain (Mild 1-3)/fever Last Admin: 02/04/19 04:06 Dose: 650 mg Admin: 02/03/19 08:11 Dose: 650 mg Admin: 02/02/19 19:11 Dose: 650 mg Admin: 02/02/19 02:02 Dose: 650 mg Admin: 02/01/19 20:24 Dose: 650 mg Docusate Sodium (Colace) 100 mg PO BID PRN PRN Reason: Constipation Enoxaparin Sodium (Lovenox) 40 mg SUBCUT Q24H ALAINA Last Admin: 02/04/19 20:29 Dose: 40 mg Admin: 02/03/19 21:00 Dose: 40 mg Admin: 02/02/19 22:51 Dose: 40 mg Admin: 02/01/19 21:44 Dose: 40 mg Linezolid 600 mg/ Premix 300 mls @ 300 mls/hr IV Q12H [facility] Last Admin: 02/05/19 05:32 Dose: 300 mls/hr Infusion: 02/04/19 19:35 Dose: 300 mls/hr Admin: 02/04/19 18:35 Dose: 300 mls/hr Infusion: 02/04/19 07:07 Dose: 300 mls/hr Admin: 02/04/19 06:07 Dose: 300 mls/hr Infusion: 02/03/19 19:08 Dose: 300 mls/hr Admin: 02/03/19 18:08 Dose: 300 mls/hr Infusion: 02/03/19 08:33 Dose: 300 mls/hr Admin: 02/03/19 07:33 Dose: 300 mls/hr Infusion: 02/02/19 18:47 Dose: 300 mls/hr Admin: 02/02/19 17:47 Dose: 300 mls/hr Infusion: 02/02/19 07:02 Dose: 300 mls/hr Admin: 02/02/19 06:02 Dose: 300 mls/hr Sodium Chloride (Normal Saline) 1,000 mls @ 125 mls/hr IV ASDIRECTED [facility] Last Admin: 02/05/19 06:05 Dose: 125 mls/hr Infusion: 02/05/19 05:53 Dose: 125 mls/hr Admin: 02/04/19 21:53 Dose: 125 mls/hr Infusion: 02/04/19 20:08 Dose: 125 mls/hr Admin: 02/04/19 12:08 Dose: 125 mls/hr Infusion: 02/04/19 08:17 Dose: 125 mls/hr Admin: 02/04/19 00:17 Dose: 125 mls/hr Infusion: 02/03/19 23:18 Dose: 125 mls/hr Admin: 02/03/19 15:18 Dose: 125 mls/hr Infusion: 02/03/19 12:04 Dose: 125 mls/hr Admin: 02/03/19 04:04 Dose: 125 mls/hr Infusion: 02/03/19 02:57 Dose: 125 mls/hr Admin: 02/02/19 18:57 Dose: 125 mls/hr Infusion: 02/02/19 17:36 Dose: 125 mls/hr Admin: 02/02/19 09:36 Dose: 125 mls/hr Infusion: 02/02/19 07:15 Dose: 125 mls/hr Admin: 02/01/19 23:15 Dose: 125 mls/hr Clindamycin Phosphate 600 mg/ (Premix) 50 mls @ 100 mls/hr IV Q6H ALAINA Last Admin: 02/05/19 08:15 Dose: 100 mls/hr Infusion: 02/05/19 02:14 Dose: 100 mls/hr Admin: 02/05/19 01:44 Dose: 100 mls/hr Infusion: 02/04/19 20:56 Dose: 100 mls/hr Admin: 02/04/19 20:26 Dose: 100 mls/hr Infusion: 02/04/19 15:32 Dose: 100 mls/hr Admin: 02/04/19 15:02 Dose: 100 mls/hr Infusion: 02/04/19 09:30 Dose: 100 mls/hr Admin: 02/04/19 09:00 Dose: 100 mls/hr Ondansetron HCl (Zofran Odt) 4 mg PO Q6H PRN PRN Reason: nausea, able to take PO Last Admin: 02/02/19 23:14 Dose: 4 mg Admin: 02/02/19 01:55 Dose: 4 mg Oxycodone HCl (Oxycodone) 5 mg PO Q4H PRN PRN Reason: Pain (moderate 4-6) Sodium Chloride (Saline Flush) 10 ml FLUSH ASDIRECTED PRN PRN Reason: Keep Vein Open Last Admin: 02/01/19 17:46 Dose: 10 ml Sodium Chloride (Saline Flush) 2.5 ml FLUSH ASDIRECTED PRN PRN Reason: Keep Vein Open Last Admin: 02/01/19 17:46 Dose: 2.5 ml Temazepam (Restoril) 15 mg PO BEDTIME PRN PRN Reason: Sleep Labs: Laboratory Tests 02/01/19 02/01/19 02/01/19 Range/Units 17:35 17:35 17:35 WBC 19.42 H (4.0-11.0) K/uL RBC 5.53 (4.50-5.90) M/uL Hgb 15.6 (13.0-17.0) g/dL Hct 45.1 (38.0-50.0) % MCV 81.6 (80.0-98.0) fL MCH 28.2 (27.0-32.0) pg MCHC 34.6 (31.0-37.0) g/dL RDW Std Deviation 38.6 (28.0-62.0) fl RDW Coeff of Gabriella 13 (11.0-15.0) % Plt Count 185 (150-400) K/uL MPV 10.70 (7.40-12.00) fL Add Manual Diff YES Neutrophils % (Manual) 66 (48.0-80.0) % Band Neutrophils % 27 % Lymphocytes % (Manual) 5 L (16.0-40.0) % Monocytes % (Manual) 2 (0.0-15.0) % Metamyelocytes % % Nucleated RBC % 0.0 /100WBC Absolute Seg Neuts 12.8 H (1.4-5.7) Band Neutrophils # 5.2 Lymphocytes # (Manual) 1.0 (0.6-2.4) Monocytes # (Manual) 0.4 (0.0-0.8) Absolute Metamyelocyte Nucleated RBCs # 0 K/uL Lactate 2.6 H (0.20-2.00) mmol/L Sodium 138 (136-148) mmol/L Potassium 4.2 (3.5-5.1) mmol/L Chloride 100 (98-107) mmol/L Carbon Dioxide 26.2 (21.0-32.0) mmol/L BUN 16 (7.0-18.0) mg/dL Creatinine 1.2 (0.8-1.3) mg/dL Est Cr Clr Drug Dosing 81.23 mL/min Estimated GFR (MDRD) > 60.0 ml/min Glucose 116 H (74-106) mg/dL Calcium 9.1 (8.5-10.1) mg/dL Total Bilirubin 1.3 H (0.2-1.0) mg/dL AST 25 (15-37) IU/L ALT 72 H (14-63) IU/L Alkaline Phosphatase 71 (46-116) U/L Total Protein 7.4 (6.4-8.2) g/dL Albumin 4.1 (3.4-5.0) g/dL Globulin 3.3 (2.6-4.0) g/dL Albumin/Globulin Ratio 1.2 (0.9-1.6) 02/01/19 02/02/19 02/02/19 Range/Units 23:35 06:20 06:20 WBC 18.20 H (4.0-11.0) K/uL RBC 5.15 (4.50-5.90) M/uL Hgb 14.7 (13.0-17.0) g/dL Hct 42.8 (38.0-50.0) % MCV 83.1 (80.0-98.0) fL MCH 28.5 (27.0-32.0) pg MCHC 34.3 (31.0-37.0) g/dL RDW Std Deviation 40.2 (28.0-62.0) fl RDW Coeff of Gabriella 13 (11.0-15.0) % Plt Count 135 L (150-400) K/uL MPV 10.60 (7.40-12.00) fL Add Manual Diff YES Neutrophils % (Manual) 62 (48.0-80.0) % Band Neutrophils % 29 % Lymphocytes % (Manual) 3 L (16.0-40.0) % Monocytes % (Manual) 3 (0.0-15.0) % Metamyelocytes % 3 % Nucleated RBC % 0.0 /100WBC Absolute Seg Neuts 11.3 H (1.4-5.7) Band Neutrophils # 5.3 Lymphocytes # (Manual) 0.5 L (0.6-2.4) Monocytes # (Manual) 0.5 (0.0-0.8) Absolute Metamyelocyte 0.5 Nucleated RBCs # 0 K/uL Lactate 1.5 (0.20-2.00) mmol/L Sodium 137 (136-148) mmol/L Potassium 4.1 (3.5-5.1) mmol/L Chloride 102 (98-107) mmol/L Carbon Dioxide 28.5 (21.0-32.0) mmol/L BUN 18 (7.0-18.0) mg/dL Creatinine 0.7 L (0.8-1.3) mg/dL Est Cr Clr Drug Dosing 124.19 mL/min Estimated GFR (MDRD) > 60.0 ml/min Glucose 107 H (74-106) mg/dL Calcium 7.9 L (8.5-10.1) mg/dL Total Bilirubin 2.0 H (0.2-1.0) mg/dL AST 47 H (15-37) IU/L ALT 86 H (14-63) IU/L Alkaline Phosphatase 59 (46-116) U/L Total Protein 6.4 (6.4-8.2) g/dL Albumin 3.3 L (3.4-5.0) g/dL Globulin 3.1 (2.6-4.0) g/dL Albumin/Globulin Ratio 1.1 (0.9-1.6) Meds: Medications Generic Name Dose Route Start Last Admin Trade Name Freq PRN Reason Stop Dose Admin Acetaminophen 650 mg 02/01/19 18:38 02/04/19 04:06 Tylenol PO 650 mg Q4H PRN Administration Pain (Mild 1-3)/fever Docusate Sodium 100 mg 02/01/19 18:38 Colace PO BID PRN Constipation Enoxaparin Sodium 40 mg 02/01/19 21:00 02/04/19 20:29 Lovenox SUBCUT 40 mg Q24H ALAINA Administration Linezolid 600 mg/ Premix 300 mls @ 300 mls/hr 02/02/19 06:00 02/05/19 05:32 IV 300 mls/hr Q12H ALAINA Administration Sodium Chloride 1,000 mls @ 125 mls/hr 02/01/19 18:45 02/05/19 06:05 Normal Saline IV 125 mls/hr ASDIRECTED ALAINA Administration Clindamycin Phosphate 600 mg/ 50 mls @ 100 mls/hr 02/04/19 08:00 02/05/19 08: 15 Premix IV 100 mls/hr Q6H ALAINA Administration Ondansetron HCl 4 mg 02/01/19 18:38 02/02/19 23:14 Zofran Odt PO 4 mg Q6H PRN Administration nausea, able to take PO Oxycodone HCl 5 mg 02/01/19 18:38 Oxycodone PO Q4H PRN Pain (moderate 4-6) Sodium Chloride 10 ml 02/01/19 16:20 02/01/19 17:46 Saline Flush FLUSH 10 ml ASDIRECTED PRN Administration Keep Vein Open Sodium Chloride 2.5 ml 02/01/19 16:20 02/01/19 17:46 Saline Flush FLUSH 2.5 ml ASDIRECTED PRN Administration Keep Vein Open Temazepam 15 mg 02/01/19 18:38 Restoril PO BEDTIME PRN Sleep Discontinued Medications Generic Name Dose Route Start Last Admin Trade Name Poly PRN Reason Stop Dose Admin Acetaminophen 500 mg 02/02/19 03:40 02/02/19 03:53 Tylenol Extra Strength PO 02/02/19 03:41 500 mg ONETIME ONE Administration Piperacillin Sod/Tazobactam 50 mls @ 100 mls/hr 02/01/19 16:35 02/01/19 17:45 Sod 3.375 gm/ Sodium Chloride IV 02/01/19 17:04 100 mls/hr ONETIME ONE Administration Linezolid 600 mg/ Premix 300 mls @ 300 mls/hr 02/01/19 16:35 02/01/19 18:18 IV 02/01/19 17:34 300 mls/hr ONETIME ONE Administration Sodium Chloride 1,000 mls @ 999 mls/hr 02/01/19 18:06 02/01/19 18:15 Normal Saline IV 02/01/19 19:06 999 mls/hr STAT ONE Administration Ibuprofen 400 mg 02/02/19 07:58 02/02/19 08:18 Motrin PO 02/02/19 07:59 400 mg ONETIME ONE Administration Morphine Sulfate 2 mg 02/01/19 18:38 Morphine IVPUSH 02/02/19 18:40 Q2H PRN Pain (severe 7-10) Morphine Sulfate 2 mg 02/02/19 07:31 Morphine IVPUSH 02/02/19 18:40 Q2H PRN Pain (severe 7-10) Ondansetron HCl 4 mg 02/01/19 16:36 02/01/19 17:42 Zofran IVPUSH 02/01/19 16:37 4 mg ONETIME ONE Administration Departure - Departure Time of Disposition: 15:00 Disposition: Refer to Observation Clinical Impression: Cellulitis Qualifiers: Site of cellulitis: extremity Site of cellulitis of extremity: lower extremity Laterality: right Qualified Code(s): L03.115 - Cellulitis of right lower limb Sepsis Qualifiers: Sepsis type: sepsis due to unspecified organism Qualified Code(s): A41.9 - Sepsis, unspecified organism - Discharge Information
--- NOTE | 2019-02-01 17:48 | PCM.SN ---
- Free Text/Narrative Note: Called by nursing as they have been unable to obtain PIV access. Lt upper arm x1 was attempted. 20g PIV was started to Rt upper FA. 10mL of blood was also drawn for lab work as well. Secured with tape and tegaderm.
[2019-02-01 18:06] LABS: CHLORIDE,CL 100 mmol/L (98-107); SODIUM,NA 138 mmol/L (136-148)
[2019-02-01] MEDS ORDERED: Sodium Chloride 0.9% 1,000 ML IV ONE (18:06)
[2019-02-01] MEDS ORDERED: Morphine 10 MG/ML Syringe IVPUSH PRN (18:38)
[2019-02-01] MEDS ORDERED: Temazepam 15 MG Cap PO PRN (18:38)
[2019-02-01] MEDS ORDERED: Docusate Sodium 100 MG Cap PO PRN (18:38)
[2019-02-01] MEDS ORDERED: oxyCODONE 5 MG Tab PO PRN (18:38)
--- NOTE | 2019-02-01 18:38 | PCM.HP ---
H&P History of Present Illness - General Date of Service: 02/01/19 Admit Problem/Dx: Admission Diagnosis/Problem Admission Diagnosis/Problem Cellulitis Source of Information: Patient History Limitations: Reports: No Limitations - History of Present Illness Initial Comments - Free Text/Narative: The patient is a 28-year-old gentleman who presented to the emergency department on February 01, 2019 with acute onset of cellulitis of his right lower extremity. The patient also had been advised by his primary care physician to go to the emergency department for admission with IV antibiotics. Patient had been previously admitted for similar episode March 2018. The patient was at work and he had experienced pain in his right lower extremity, some dizziness and lightheadedness with similar to his previous episode of cellulitis. The patient says that the pain is located predominantly in his right lower leg and he has had increased swelling similar to his previous cellulitis. Patient reports that he had been fevers during the day and had chills as well. The patient previously had vancomycin which had induced an allergy and he had been started on Zyvox in the emergency department. Patient had been doing well up until the history of present illness. The patient's grandfather is also his guardian however, the patient says that he is able to make his own decisions with regards to medical care. Onset of Symptoms: Reports: Sudden Duration of Symptoms: Reports: Hour(s):, Getting Worse Location: Reports: Lower Extremity, Right Quality: Reports: Ache, Same as Previous Episode, Throbbing Severity: Severe Improves with: Reports: Immobilization Worsens with: Reports: Movement Associated Symptoms: Reports: Fever/Chills right lower leg Pain Score (Numeric/FACES): 10 - Related Data Allergies/Adverse Reactions: Allergies Allergy/AdvReac Type Severity Reaction Status Date / Time vancomycin Allergy Rash Verified 02/01/19 21:45 Iodinated Contrast- Oral and AdvReac Renal Verified 02/01/19 21:45 IV Dye Failure Home Medications: Home Meds Acetaminophen [Tylenol] 650 mg PO TID 02/01/19 [History] Past Medical History - Past Health History Medical/Surgical History: Denies Medical/Surgical History HEENT History: Reports: None Cardiovascular History: Reports: None Respiratory History: Reports: None Gastrointestinal History: Reports: Other (See Below) Other Gastrointestinal History: elevation in LFTs, abdominal US 09/2015 showed fatty liver and gallbladder sludge. Genitourinary History: Reports: None, UTI, Recurrent, Other (See Below) Other Genitourinary History: na Musculoskeletal History: Reports: None Neurological History: Reports: Other (See Below) Other Neuro History: hydrocephalus Psychiatric History: Reports: None Endocrine/Metabolic History: Reports: Obesity/BMI 30+ Hematologic History: Reports: None Immunologic History: Reports: None Oncologic (Cancer) History: Reports: None Dermatologic History: Reports: Cellulitis, Chronic Cellulitis Other Dermatologic History: RLE - Infectious Disease History Infectious Disease History: Reports: Chicken Pox - Past Surgical History Head Surgeries/Procedures: Reports: None HEENT Surgical History: Reports: None Cardiovascular Surgical History: Reports: None Respiratory Surgical History: Reports: None GI Surgical History: Reports: None Male Surgical History: Reports: None Endocrine Surgical History: Reports: None Neurological Surgical History: Reports: None Musculoskeletal Surgical History: Reports: None Oncologic Surgical History: Reports: None Dermatological Surgical History: Reports: None Social & Family History - Family History Family Medical History: Noncontributory Other Dermatologic Family History: family history of cellulitis - Tobacco Use Smoking Status *Q: Never Smoker Second Hand Smoke Exposure: No - Caffeine Use Caffeine Use: Reports: None - Recreational Drug Use Recreational Drug Use: No - Living Situation & Occupation Living situation: Reports: Single, with Family Occupation: Employed H&P Review of Systems - Review of Systems: Review Of Systems: See Below General: Reports: Fever, Chills, Malaise, Diaphoresis HEENT: Reports: No Symptoms Pulmonary: Reports: No Symptoms Cardiovascular: Reports: Edema Gastrointestinal: Reports: No Symptoms Genitourinary: Reports: No Symptoms Musculoskeletal: Reports: No Symptoms Skin: Reports: Other (Cellulitis) Psychiatric: Reports: No Symptoms Neurological: Reports: No Symptoms Hematologic/Lymphatic: Reports: No Symptoms Immunologic: Reports: No Symptoms Exam - Exam Exam: See Below - Vital Signs Vital Signs: Last Vital Signs Temp 36.7 C 02/01/19 16:23 Pulse 93 02/01/19 17:42 Resp 20 02/01/19 17:42 BP 108/66 02/01/19 17:42 Pulse Ox 95 02/01/19 17:42 Weight: 124.4 kg - Exam Quality Assessment: Skin Breakdown (Right lower leg). No: Supplemental Oxygen General: Alert (Morbidly obese), Oriented, Cooperative, Mild Distress HEENT: Conjunctiva Clear, EACs Clear, EOMI, Hearing Intact, Pupils Equal, PERRLA. No: Mucosa Moist & [place] (Dry) Neck: Supple, Trachea Midline Lungs: Clear to Auscultation, Normal Respiratory Effort Cardiovascular: Regular Rate, Regular Rhythm GI/Abdominal Exam: Normal Bowel Sounds, Soft, Non-Tender, No Distention, Other ( Over these). No: Guarding, Rigid Back Exam: Normal Inspection, Full Range of Motion Extremities: Pedal Edema, Leg Pain, Increased Warmth (Right lower leg) Skin: Other (Erythema, cellulitis right lower extremity, circumferential) Neurological: Cranial Nerves Intact Neuro Extensive - Mental Status: Alert, Oriented x3 Psychiatric: Alert, Normal Affect, Normal Mood - Patient Data Lab Results Last 24 hrs: Laboratory Results - last 24 hr 02/01/19 02/01/19 02/01/19 Range/Units 17:35 17:35 17:35 WBC 19.42 H (4.0-11.0) K/uL RBC 5.53 (4.50-5.90) M/uL Hgb 15.6 (13.0-17.0) g/dL Hct 45.1 (38.0-50.0) % MCV 81.6 (80.0-98.0) fL MCH 28.2 (27.0-32.0) pg MCHC 34.6 (31.0-37.0) g/dL RDW Std Deviation 38.6 (28.0-62.0) fl RDW Coeff of Gabriella 13 (11.0-15.0) % Plt Count 185 (150-400) K/uL MPV 10.70 (7.40-12.00) fL Add Manual Diff YES Neutrophils % (Manual) 66 (48.0-80.0) % Band Neutrophils % 27 % Lymphocytes % (Manual) 5 L (16.0-40.0) % Monocytes % (Manual) 2 (0.0-15.0) % Nucleated RBC % 0.0 /100WBC Absolute Seg Neuts 12.8 H (1.4-5.7) Band Neutrophils # 5.2 Lymphocytes # (Manual) 1.0 (0.6-2.4) Monocytes # (Manual) 0.4 (0.0-0.8) Nucleated RBCs # 0 K/uL Lactate 2.6 H (0.20-2.00) mmol/L Sodium 138 (136-148) mmol/L Potassium 4.2 (3.5-5.1) mmol/L Chloride 100 (98-107) mmol/L Carbon Dioxide 26.2 (21.0-32.0) mmol/L BUN 16 (7.0-18.0) mg/dL Creatinine 1.2 (0.8-1.3) mg/dL Est Cr Clr Drug Dosing 81.23 mL/min Estimated GFR (MDRD) > 60.0 ml/min Glucose 116 H (74-106) mg/dL Calcium 9.1 (8.5-10.1) mg/dL Total Bilirubin 1.3 H (0.2-1.0) mg/dL AST 25 (15-37) IU/L ALT 72 H (14-63) IU/L Alkaline Phosphatase 71 (46-116) U/L Total Protein 7.4 (6.4-8.2) g/dL Albumin 4.1 (3.4-5.0) g/dL Globulin 3.3 (2.6-4.0) g/dL Albumin/Globulin Ratio 1.2 (0.9-1.6) Result Diagrams: 02/02/19 06:20 02/02/19 06:20 - Problem List (1) Sepsis SNOMED Code(s): 63869190 ICD Code: A41.9 - SEPSIS, UNSPECIFIED ORGANISM Status: Acute Priority: High Current Visit: Yes Problem Details: Cellulitis right lower extremity source of sepsis Qualifiers: Sepsis type: sepsis due to unspecified organism Qualified Code(s): A41.9 - Sepsis, unspecified organism (2) Cellulitis of leg without foot, right SNOMED Code(s): 129682911 ICD Code: L03.115 - CELLULITIS OF RIGHT LOWER LIMB Status: Acute Priority : High Current Visit: Yes Problem Details: Recurrent (3) Obesity, morbid, BMI 40.0-49.9 SNOMED Code(s): 154157865, 397991943, 54585587421261 ICD Code: E66.01 - MORBID (SEVERE) OBESITY DUE TO EXCESS CALORIES Status: Chronic Priority: Medium Current Visit: Yes Problem List Initiated/Reviewed/Updated: Yes Orders Last 24hrs: Active Orders 24 hr Category Date Time Status Admission Status [Patient Status] [ADT] Stat ADT 02/01/19 18:17 Active Tibia Fibula Rt [CR] Stat Exams 02/01/19 16:36 Taken CULTURE BLOOD [BC] Stat Lab 02/01/19 16:50 Received CULTURE BLOOD [BC] Stat Lab 02/01/19 17:03 Received Sodium Chloride 0.9% [Normal Saline] 1,000 ml Med 02/01/19 18:06 Active IV STAT Sodium Chloride 0.9% [Saline Flush] Med 02/01/19 16:20 Active 10 ml FLUSH ASDIRECTED PRN Sodium Chloride 0.9% [Saline Flush] Med 02/01/19 16:20 Active 2.5 ml FLUSH ASDIRECTED PRN Blood Culture x2 Reflex Set [OM.PC] Stat Oth 02/01/19 16:20 Ordered Saline Lock Insert [OM.PC] Stat Oth 02/01/19 16:20 Ordered Medication Orders Sodium Chloride (Normal Saline) 1,000 mls @ 999 mls/hr IV STAT ONE Stop: 02/01/19 19:06 Last Admin: 02/01/19 18:15 Dose: 999 mls/hr Sodium Chloride (Saline Flush) 10 ml FLUSH ASDIRECTED PRN PRN Reason: Keep Vein Open Last Admin: 02/01/19 17:46 Dose: 10 ml Sodium Chloride (Saline Flush) 2.5 ml FLUSH ASDIRECTED PRN PRN Reason: Keep Vein Open Last Admin: 02/01/19 17:46 Dose: 2.5 ml Assessment/Plan Comment:: The patient is a 28-year-old gentleman who was seen and examined in the emergency department and he had presented primarily with cellulitis. The patient has enough of the diagnostic criteria to meet the definition of sepsis. As a result of this the patient will be aggressively hydrated with normal saline. He had been initially started on Zyvox in the emergency department and this will be continued. I've ordered repeat lactic acid completed until normalized. The patient will be kept on regular diet as tolerated. He'll also receive anticoagulation with the use of Lovenox. Repeat laboratory studies of also been ordered. Cultures have been taken and currently pending.
--- NOTE | 2019-02-01 19:02 | CR ---
HISTORY: Pain and swelling. FINDINGS: Two views of the right lower leg are provided. No findings for fracture, dislocation or focal bony destruction. Moderate posterior and plantar spurring of the calcaneus is noted. There is prominent increased density in the subcutaneous fat diffusely presumably representing edema. This could be due to etiologies such as cellulitis or deep venous thrombosis. Dictated by Christopher Nazario MD @ Feb 01 2019 6:59PM Signed by Dr. Christopher Nazario @ Feb 01 2019 7:00PM
[2019-02-01] MEDS: Acetaminophen 325 MG Tab PO PRN (20:24)
[2019-02-01] MEDS: Enoxaparin 40 MG/0.4 ML Syringe SUBCUT SCH (21:44)
[2019-02-01] MEDS: Sodium Chloride 0.9% 1,000 ML IV SCH (23:15)
[2019-02-02] MEDS: Ondansetron 4 MG Tab.DIS PO PRN ×2 (01:55→23:14)
[2019-02-02] MEDS: Acetaminophen 325 MG Tab PO PRN ×2 (02:02→19:11)
[2019-02-02] MEDS ORDERED: Acetaminophen 500 MG Tab PO ONE (03:40)
[2019-02-02] MEDS: Linezolid 600 MG in Premix Bag 1 BAG IV SCH ×2 (06:02→17:47)
[2019-02-02 06:55] LABS: CHLORIDE,CL 102 mmol/L (98-107); SODIUM,NA 137 mmol/L (136-148)
[2019-02-02] MEDS ORDERED: Morphine 2 MG/ML Syringe IVPUSH PRN (07:31)
[2019-02-02] MEDS ORDERED: Ibuprofen 400 MG Tab PO ONE (07:58)
--- NOTE | 2019-02-02 09:30 | PCM.PN ---
- General Info Date of Service: 02/02/19 Admission Dx/Problem (Free Text): Admission Diagnosis/Problem Admission Diagnosis/Problem Cellulitis right lower extremity, sepsis due to skin source Subjective Update: The patient is a 28-year-old gentleman who had been admitted yesterday secondary to cellulitis of his right lower extremity. The patient had difficulty with fever and chills overnight. Tolerating his antibiotics. The patient says that his pain is decreased. He has been tolerating diet. Functional Status: Reports: Pain Controlled - Review of Systems General: Reports: Fever, Weakness, Chills HEENT: Reports: No Symptoms Pulmonary: Reports: No Symptoms Cardiovascular: Reports: No Symptoms Gastrointestinal: Reports: No Symptoms Genitourinary: Reports: No Symptoms Musculoskeletal: Reports: Leg Pain Skin: Reports: Other (Cellulitis) Neurological: Reports: No Symptoms Psychiatric: Reports: No Symptoms - Patient Data Vitals - Most Recent: Last Vital Signs Temp 38.5 C H 02/02/19 08:18 Pulse 105 H 02/02/19 07:45 Resp 24 H 02/02/19 07:45 BP 123/60 02/02/19 07:45 Pulse Ox 98 02/02/19 07:45 Weight - Most Recent: 124.4 kg I&O - Last 24 Hours: Intake & Output 02/01/19 02/02/19 02/02/19 22:59 06:59 14:59 Intake Total 450 Output Total 30 Balance 420 Lab Results Last 24 Hours: Laboratory Results - last 24 hr 02/01/19 02/01/19 02/01/19 Range/Units 17:35 17:35 17:35 WBC 19.42 H (4.0-11.0) K/uL RBC 5.53 (4.50-5.90) M/uL Hgb 15.6 (13.0-17.0) g/dL Hct 45.1 (38.0-50.0) % MCV 81.6 (80.0-98.0) fL MCH 28.2 (27.0-32.0) pg MCHC 34.6 (31.0-37.0) g/dL RDW Std Deviation 38.6 (28.0-62.0) fl RDW Coeff of Gabriella 13 (11.0-15.0) % Plt Count 185 (150-400) K/uL MPV 10.70 (7.40-12.00) fL Add Manual Diff YES Neutrophils % (Manual) 66 (48.0-80.0) % Band Neutrophils % 27 % Lymphocytes % (Manual) 5 L (16.0-40.0) % Monocytes % (Manual) 2 (0.0-15.0) % Metamyelocytes % % Nucleated RBC % 0.0 /100WBC Absolute Seg Neuts 12.8 H (1.4-5.7) Band Neutrophils # 5.2 Lymphocytes # (Manual) 1.0 (0.6-2.4) Monocytes # (Manual) 0.4 (0.0-0.8) Absolute Metamyelocyte Nucleated RBCs # 0 K/uL Lactate 2.6 H (0.20-2.00) mmol/L Sodium 138 (136-148) mmol/L Potassium 4.2 (3.5-5.1) mmol/L Chloride 100 (98-107) mmol/L Carbon Dioxide 26.2 (21.0-32.0) mmol/L BUN 16 (7.0-18.0) mg/dL Creatinine 1.2 (0.8-1.3) mg/dL Est Cr Clr Drug Dosing 81.23 mL/min Estimated GFR (MDRD) > 60.0 ml/min Glucose 116 H (74-106) mg/dL Calcium 9.1 (8.5-10.1) mg/dL Total Bilirubin 1.3 H (0.2-1.0) mg/dL AST 25 (15-37) IU/L ALT 72 H (14-63) IU/L Alkaline Phosphatase 71 (46-116) U/L Total Protein 7.4 (6.4-8.2) g/dL Albumin 4.1 (3.4-5.0) g/dL Globulin 3.3 (2.6-4.0) g/dL Albumin/Globulin Ratio 1.2 (0.9-1.6) 02/01/19 02/02/19 02/02/19 Range/Units 23:35 06:20 06:20 WBC 18.20 H (4.0-11.0) K/uL RBC 5.15 (4.50-5.90) M/uL Hgb 14.7 (13.0-17.0) g/dL Hct 42.8 (38.0-50.0) % MCV 83.1 (80.0-98.0) fL MCH 28.5 (27.0-32.0) pg MCHC 34.3 (31.0-37.0) g/dL RDW Std Deviation 40.2 (28.0-62.0) fl RDW Coeff of Gabriella 13 (11.0-15.0) % Plt Count 135 L (150-400) K/uL MPV 10.60 (7.40-12.00) fL Add Manual Diff YES Neutrophils % (Manual) 62 (48.0-80.0) % Band Neutrophils % 29 % Lymphocytes % (Manual) 3 L (16.0-40.0) % Monocytes % (Manual) 3 (0.0-15.0) % Metamyelocytes % 3 % Nucleated RBC % 0.0 /100WBC Absolute Seg Neuts 11.3 H (1.4-5.7) Band Neutrophils # 5.3 Lymphocytes # (Manual) 0.5 L (0.6-2.4) Monocytes # (Manual) 0.5 (0.0-0.8) Absolute Metamyelocyte 0.5 Nucleated RBCs # 0 K/uL Lactate 1.5 (0.20-2.00) mmol/L Sodium 137 (136-148) mmol/L Potassium 4.1 (3.5-5.1) mmol/L Chloride 102 (98-107) mmol/L Carbon Dioxide 28.5 (21.0-32.0) mmol/L BUN 18 (7.0-18.0) mg/dL Creatinine 0.7 L (0.8-1.3) mg/dL Est Cr Clr Drug Dosing 124.19 mL/min Estimated GFR (MDRD) > 60.0 ml/min Glucose 107 H (74-106) mg/dL Calcium 7.9 L (8.5-10.1) mg/dL Total Bilirubin 2.0 H (0.2-1.0) mg/dL AST 47 H (15-37) IU/L ALT 86 H (14-63) IU/L Alkaline Phosphatase 59 (46-116) U/L Total Protein 6.4 (6.4-8.2) g/dL Albumin 3.3 L (3.4-5.0) g/dL Globulin 3.1 (2.6-4.0) g/dL Albumin/Globulin Ratio 1.1 (0.9-1.6) Med Orders - Current: Current Medications Acetaminophen (Tylenol) 650 mg PO Q4H PRN PRN Reason: Pain (Mild 1-3)/fever Last Admin: 02/02/19 02:02 Dose: 650 mg Docusate Sodium (Colace) 100 mg PO BID PRN PRN Reason: Constipation Enoxaparin Sodium (Lovenox) 40 mg SUBCUT Q24H [facility] Last Admin: 02/01/19 21:44 Dose: 40 mg Linezolid 600 mg/ Premix 300 mls @ 300 mls/hr IV Q12H [facility] Last Admin: 02/02/19 06:02 Dose: 300 mls/hr Sodium Chloride (Normal Saline) 1,000 mls @ 125 mls/hr IV ASDIRECTED [facility] Last Admin: 02/01/19 23:15 Dose: 125 mls/hr Morphine Sulfate (Morphine) 2 mg IVPUSH Q2H PRN PRN Reason: Pain (severe 7-10) Stop: 02/02/19 18:40 Ondansetron HCl (Zofran Odt) 4 mg PO Q6H PRN PRN Reason: nausea, able to take PO Last Admin: 02/02/19 01:55 Dose: 4 mg Oxycodone HCl (Oxycodone) 5 mg PO Q4H PRN PRN Reason: Pain (moderate 4-6) Sodium Chloride (Saline Flush) 10 ml FLUSH ASDIRECTED PRN PRN Reason: Keep Vein Open Last Admin: 02/01/19 17:46 Dose: 10 ml Sodium Chloride (Saline Flush) 2.5 ml FLUSH ASDIRECTED PRN PRN Reason: Keep Vein Open Last Admin: 02/01/19 17:46 Dose: 2.5 ml Temazepam (Restoril) 15 mg PO BEDTIME PRN PRN Reason: Sleep Discontinued Medications Acetaminophen (Tylenol Extra Strength) 500 mg PO ONETIME ONE Stop: 02/02/19 03:41 Last Admin: 02/02/19 03:53 Dose: 500 mg Piperacillin Sod/Tazobactam (Sod 3.375 gm/ Sodium Chloride) 50 mls @ 100 mls/ hr IV ONETIME ONE Stop: 02/01/19 17:04 Last Admin: 02/01/19 17:45 Dose: 100 mls/hr Linezolid 600 mg/ Premix 300 mls @ 300 mls/hr IV ONETIME ONE Stop: 02/01/19 17:34 Last Admin: 02/01/19 18:18 Dose: 300 mls/hr Sodium Chloride (Normal Saline) 1,000 mls @ 999 mls/hr IV STAT ONE Stop: 02/01/19 19:06 Last Admin: 02/01/19 18:15 Dose: 999 mls/hr Ibuprofen (Motrin) 400 mg PO ONETIME ONE Stop: 02/02/19 07:59 Last Admin: 02/02/19 08:18 Dose: 400 mg Morphine Sulfate (Morphine) 2 mg IVPUSH Q2H PRN PRN Reason: Pain (severe 7-10) Stop: 02/02/19 18:40 Ondansetron HCl (Zofran) 4 mg IVPUSH ONETIME ONE Stop: 02/01/19 16:37 Last Admin: 02/01/19 17:42 Dose: 4 mg - Exam Quality Assessment: No: Supplemental Oxygen General: Alert, Oriented, Cooperative, Mild Distress HEENT: Pupils Equal, Pupils Reactive, EOMI, Mucous Membr. Moist/[place] Neck: Supple, Trachea Midline Lungs: Clear to Auscultation, Normal Respiratory Effort Cardiovascular: Regular Rate, Regular Rhythm GI/Abdominal Exam: Normal Bowel Sounds, Soft, No Distention, Other (Obese) Back Exam: Normal Inspection, Full Range of Motion Extremities: Pedal Edema, Leg Pain Skin: Warm, Dry, Other (Cellulitis right lower extremity, circumferential, less erythema) Neurological: No New Focal Deficit Psy/Mental Status: Alert, Normal Affect - Problem List & Annotations (1) Sepsis SNOMED Code(s): 81883991 Code(s): A41.9 - SEPSIS, UNSPECIFIED ORGANISM Status: Acute Priority: High Current Visit: Yes Qualifiers: Sepsis type: sepsis due to unspecified organism Qualified Code(s): A41.9 - Sepsis, unspecified organism Annotation/Comment:: Cellulitis right lower extremity source of sepsis (2) Cellulitis of leg without foot, right SNOMED Code(s): 243847042 Code(s): L03.115 - CELLULITIS OF RIGHT LOWER LIMB Status: Acute Priority : High Current Visit: Yes Annotation/Comment:: Recurrent (3) Obesity, morbid, BMI 40.0-49.9 SNOMED Code(s): 018163360, 719763981, 83590112267739 Code(s): E66.01 - MORBID (SEVERE) OBESITY DUE TO EXCESS CALORIES Status: Chronic Priority: Medium Current Visit: Yes - Problem List Review Problem List Initiated/Reviewed/Updated: Yes - My Orders Last 24 Hours: My Active Orders 02/01/19 18:38 Oxygen Therapy [RC] PRN Up With Assistance [RC] ASDIRECTED VTE/DVT Education [RC] PER UNIT ROUTINE Vital Signs [RC] Q4H Acetaminophen [Tylenol] 650 mg PO Q4H PRN Docusate Sodium [Colace] 100 mg PO BID PRN Ondansetron [Zofran ODT] 4 mg PO Q6H PRN Temazepam [Restoril] 15 mg PO BEDTIME PRN oxyCODONE 5 mg PO Q4H PRN Resuscitation Status Routine 02/01/19 18:45 Sodium Chloride 0.9% [Normal Saline] 1,000 ml IV ASDIRECTED 02/01/19 21:00 Enoxaparin [Lovenox] 40 mg SUBCUT Q24H 02/02/19 06:00 Linezolid [Zyvox] 600 mg Premix Bag 1 bag IV Q12H 02/02/19 07:31 Morphine 2 mg IVPUSH Q2H PRN 02/02/19 Breakfast Regular Diet [DIET] - Assessment Assessment:: The patient is a 28-year-old gentleman who has sufficient diagnostic criteria at this time to be identified with sepsis. The patient will continue on aggressive fluid resuscitation with normal saline at 125 mL per hour. The patient will also be continued on his Zyvox 600 mg IV twice a day. Because of the infection and the patient's morbid obesity is at high risk for DVT and he' ll be maintained on Lovenox 40 mg subcutaneous on a daily basis. The patient will kept on a regular diet as tolerated. I've ordered repeat laboratory testings. The patient will also have an ultrasound of his right lower extremity order to help exclude DVT. Patient should be appropriate for discharge once leukocytosis has resolved, fevers have resolved and the patient's symptoms had improved. This may take 1-2 days.
[2019-02-02] MEDS: Sodium Chloride 0.9% 1,000 ML IV SCH ×2 (09:36→18:57)
[2019-02-02] MEDS: Enoxaparin 40 MG/0.4 ML Syringe SUBCUT SCH (22:51)
[2019-02-03] MEDS: Sodium Chloride 0.9% 1,000 ML IV SCH ×2 (04:04→15:18)
--- NOTE | 2019-02-03 07:24 | PCM.PN ---
- General Info Date of Service: 02/03/19 Admission Dx/Problem (Free Text): Admission Diagnosis/Problem Admission Diagnosis/Problem Cellulitis right lower extremity, sepsis due to skin source Subjective Update: The patient is a 28-year-old gentleman who had been admitted secondary to cellulitis of his right lower extremity. The patient has been on Zyvox since admission. Today, the patient says that he is feeling somewhat better. He has been complaining of the headache. The patient has been eating well. The patient lactate has normalized. Functional Status: Reports: Pain Controlled - Review of Systems General: Reports: Fever HEENT: Reports: Headaches Pulmonary: Reports: No Symptoms Cardiovascular: Reports: No Symptoms Gastrointestinal: Reports: No Symptoms Genitourinary: Reports: No Symptoms Musculoskeletal: Reports: Leg Pain Skin: Reports: Rash Neurological: Reports: No Symptoms Psychiatric: Reports: No Symptoms - Patient Data Vitals - Most Recent: Last Vital Signs Temp 37.3 C 02/03/19 04:00 Pulse 97 02/03/19 04:00 Resp 22 H 02/03/19 04:00 BP 114/67 02/03/19 04:00 Pulse Ox 95 02/03/19 04:00 Weight - Most Recent: 124.4 kg I&O - Last 24 Hours: Intake & Output 02/02/19 02/03/19 02/03/19 22:59 06:59 14:59 Intake Total 1732 250 Output Total 550 650 Balance 1182 -400 Fausto Results Last 24 Hours: Microbiology 02/01/19 17:03 Aerobic Blood Culture - Preliminary Blood - Venous - Lab Draw NO GROWTH AFTER 1 DAY Anaerobic Blood Culture - Preliminary NO GROWTH AFTER 1 DAY 02/01/19 16:50 Aerobic Blood Culture - Preliminary Blood - Venous NO GROWTH AFTER 1 DAY Anaerobic Blood Culture - Preliminary NO GROWTH AFTER 1 DAY Med Orders - Current: Current Medications Acetaminophen (Tylenol) 650 mg PO Q4H PRN PRN Reason: Pain (Mild 1-3)/fever Last Admin: 02/02/19 19:11 Dose: 650 mg Docusate Sodium (Colace) 100 mg PO BID PRN PRN Reason: Constipation Enoxaparin Sodium (Lovenox) 40 mg SUBCUT Q24H [facility] Last Admin: 02/02/19 22:51 Dose: 40 mg Linezolid 600 mg/ Premix 300 mls @ 300 mls/hr IV Q12H [facility] Last Admin: 02/02/19 17:47 Dose: 300 mls/hr Sodium Chloride (Normal Saline) 1,000 mls @ 125 mls/hr IV ASDIRECTED [facility] Last Admin: 02/03/19 04:04 Dose: 125 mls/hr Ondansetron HCl (Zofran Odt) 4 mg PO Q6H PRN PRN Reason: nausea, able to take PO Last Admin: 02/02/19 23:14 Dose: 4 mg Oxycodone HCl (Oxycodone) 5 mg PO Q4H PRN PRN Reason: Pain (moderate 4-6) Sodium Chloride (Saline Flush) 10 ml FLUSH ASDIRECTED PRN PRN Reason: Keep Vein Open Last Admin: 02/01/19 17:46 Dose: 10 ml Sodium Chloride (Saline Flush) 2.5 ml FLUSH ASDIRECTED PRN PRN Reason: Keep Vein Open Last Admin: 02/01/19 17:46 Dose: 2.5 ml Temazepam (Restoril) 15 mg PO BEDTIME PRN PRN Reason: Sleep Discontinued Medications Acetaminophen (Tylenol Extra Strength) 500 mg PO ONETIME ONE Stop: 02/02/19 03:41 Last Admin: 02/02/19 03:53 Dose: 500 mg Piperacillin Sod/Tazobactam (Sod 3.375 gm/ Sodium Chloride) 50 mls @ 100 mls/ hr IV ONETIME ONE Stop: 02/01/19 17:04 Last Admin: 02/01/19 17:45 Dose: 100 mls/hr Linezolid 600 mg/ Premix 300 mls @ 300 mls/hr IV ONETIME ONE Stop: 02/01/19 17:34 Last Admin: 02/01/19 18:18 Dose: 300 mls/hr Sodium Chloride (Normal Saline) 1,000 mls @ 999 mls/hr IV STAT ONE Stop: 02/01/19 19:06 Last Admin: 02/01/19 18:15 Dose: 999 mls/hr Ibuprofen (Motrin) 400 mg PO ONETIME ONE Stop: 02/02/19 07:59 Last Admin: 02/02/19 08:18 Dose: 400 mg Morphine Sulfate (Morphine) 2 mg IVPUSH Q2H PRN PRN Reason: Pain (severe 7-10) Stop: 02/02/19 18:40 Morphine Sulfate (Morphine) 2 mg IVPUSH Q2H PRN PRN Reason: Pain (severe 7-10) Stop: 02/02/19 18:40 Ondansetron HCl (Zofran) 4 mg IVPUSH ONETIME ONE Stop: 02/01/19 16:37 Last Admin: 02/01/19 17:42 Dose: 4 mg - Exam Quality Assessment: Supplemental Oxygen General: Alert, Oriented, Cooperative, No Acute Distress HEENT: Pupils Equal, Pupils Reactive, EOMI, Mucous Membr. Moist/[place] Neck: Supple, Trachea Midline Lungs: Clear to Auscultation, Normal Respiratory Effort Cardiovascular: Regular Rate, Regular Rhythm GI/Abdominal Exam: Normal Bowel Sounds, Soft, No Distention, Other (Obese) Extremities: Normal Range of Motion, Pedal Edema. No: Normal Inspection ( Patient with circumferential cellulitis right lower extremity.) Skin: Warm, Dry, Intact, Other (Cellulitis right lower extremity less edema) Neurological: No New Focal Deficit Psy/Mental Status: Alert, Normal Affect, Normal Mood - Problem List & Annotations (1) Sepsis SNOMED Code(s): 36456245 Code(s): A41.9 - SEPSIS, UNSPECIFIED ORGANISM Status: Resolved Priority: High Current Visit: Yes Qualifiers: Sepsis type: sepsis due to unspecified organism Qualified Code(s): A41.9 - Sepsis, unspecified organism Annotation/Comment:: Cellulitis right lower extremity source of sepsis (2) Cellulitis of leg without foot, right SNOMED Code(s): 268947506 Code(s): L03.115 - CELLULITIS OF RIGHT LOWER LIMB Status: Acute Priority : High Current Visit: Yes Annotation/Comment:: Recurrent (3) Obesity, morbid, BMI 40.0-49.9 SNOMED Code(s): 979601660, 626217271, 67518524094737 Code(s): E66.01 - MORBID (SEVERE) OBESITY DUE TO EXCESS CALORIES Status: Chronic Priority: Medium Current Visit: Yes - Problem List Review Problem List Initiated/Reviewed/Updated: Yes - My Orders Last 24 Hours: My Active Orders 02/02/19 20:33 Venous Doppler Lwr Ext Rt [US] Routine 02/02/19 Breakfast Regular Diet [DIET] - Assessment Assessment:: The patient is a 28-year-old gentleman who has sufficient diagnostic criteria at this time to be identified with sepsis. The patient will continue on aggressive fluid resuscitation with normal saline at 125 mL per hour. The patient will also be continued on his Zyvox 600 mg IV twice a day. Because of the infection and the patient's morbid obesity is at high risk for DVT and he' ll be maintained on Lovenox 40 mg subcutaneous on a daily basis. The patient will kept on a regular diet as tolerated. I've ordered repeat laboratory testings. The patient will also have an ultrasound of his right lower extremity order to help exclude DVT. Patient should be appropriate for discharge once leukocytosis has resolved, fevers have resolved and the patient's symptoms had improved. This may take 1-2 days. - Plan Plan:: The patient is a 28-year-old gentleman who had been admitted secondary to sepsis along with cellulitis of his right lower extremity which is likely the source. The patient will be continued on Zyvox. The patient will remain hospitalized until his white cell count has normalized, he has been afebrile for at least 24 hours and his symptoms have improved. Repeat laboratory studies have been ordered. The patient has been encouraged to ambulate. The patient also has a Doppler examination of his right lower extremities is currently pending.
[2019-02-03] MEDS: Linezolid 600 MG in Premix Bag 1 BAG IV SCH ×2 (07:33→18:08)
[2019-02-03] MEDS: Acetaminophen 325 MG Tab PO PRN (08:11)
--- NOTE | 2019-02-03 13:41 | US ---
INDICATION: Right lower extremity swelling TECHNIQUE: Ultrasound venous duplex lower right extremity. Compression venous exam was performed using nelson-scale, color Doppler, and spectral Doppler imaging. COMPARISON: November 18, 2018 FINDINGS: Sonographic imaging demonstrates the right common femoral, deep femoral, superficial femoral, popliteal and greater saphenous veins to be fully compressible with normal color Doppler blood flow. The calf veins were not visualized due to significant edema in the region. IMPRESSION: No DVT within the right common femoral, deep femoral, superficial femoral, greater saphenous, or popliteal veins. The calf veins were not visualized due to significant edema in the region. Dictated by Eulalia Lau MD @ Feb 03 2019 1:40PM Signed by Dr. Eulalia Lau @ Feb 03 2019 1:40PM
[2019-02-03] MEDS: Enoxaparin 40 MG/0.4 ML Syringe SUBCUT SCH (21:00)
[2019-02-04] MEDS: Sodium Chloride 0.9% 1,000 ML IV SCH ×3 (00:17→21:53)
[2019-02-04] MEDS: Acetaminophen 325 MG Tab PO PRN (04:06)
[2019-02-04] MEDS: Linezolid 600 MG in Premix Bag 1 BAG IV SCH ×2 (06:07→18:35)
[2019-02-04 06:44] LABS: CHLORIDE,CL 103 mmol/L (98-107); SODIUM,NA 138 mmol/L (136-148)
--- NOTE | 2019-02-04 07:58 | PCM.PN ---
- General Info Date of Service: 02/04/19 Admission Dx/Problem (Free Text): Admission Diagnosis/Problem Admission Diagnosis/Problem Cellulitis right lower extremity, sepsis due to skin source Subjective Update: The patient is a 28-year-old gentleman who had been admitted to acute hospitalization secondary to sepsis from cellulitis of his right lower extremity. The patient today says that he does not feel very well. He is having increased pain and swelling in his right lower leg. Patient has denied any fever. The patient has been tolerating his diet. Functional Status: Reports: Pain Controlled - Review of Systems General: Reports: Weakness HEENT: Reports: No Symptoms Pulmonary: Reports: No Symptoms Cardiovascular: Reports: No Symptoms Gastrointestinal: Reports: No Symptoms Genitourinary: Reports: No Symptoms Musculoskeletal: Reports: No Symptoms Skin: Reports: Other (Cellulitis) Neurological: Reports: No Symptoms Psychiatric: Reports: No Symptoms - Patient Data Vitals - Most Recent: Last Vital Signs Temp 36.9 C 02/04/19 03:59 Pulse 83 02/04/19 03:59 Resp 18 02/04/19 03:59 BP 128/56 L 02/04/19 03:59 Pulse Ox 95 02/04/19 04:00 Weight - Most Recent: 124.4 kg I&O - Last 24 Hours: Intake & Output 02/03/19 02/04/19 02/04/19 22:59 06:59 14:59 Intake Total 440 1943 Output Total 325 600 Balance 115 1343 Lab Results Last 24 Hours: Laboratory Results - last 24 hr 02/04/19 02/04/19 Range/Units 06:23 06:23 WBC 8.53 (4.0-11.0) K/uL RBC 4.52 (4.50-5.90) M/uL Hgb 12.5 L (13.0-17.0) g/dL Hct 37.9 L (38.0-50.0) % MCV 83.8 (80.0-98.0) fL MCH 27.7 (27.0-32.0) pg MCHC 33.0 (31.0-37.0) g/dL RDW Std Deviation 40.5 (28.0-62.0) fl RDW Coeff of Gabriella 13 (11.0-15.0) % Plt Count 119 L (150-400) K/uL MPV 10.40 (7.40-12.00) fL Neut % (Auto) 77.0 (48.0-80.0) % Lymph % (Auto) 16.6 (16.0-40.0) % [place] % (Auto) 6.1 (0.0-15.0) % Eos % (Auto) 0.2 (0.0-7.0) % Baso % (Auto) 0.1 (0.0-1.5) % Neut # (Auto) 6.6 H (1.4-5.7) K/uL Lymph # (Auto) 1.4 (0.6-2.4) K/uL [place] # (Auto) 0.5 (0.0-0.8) K/uL Eos # (Auto) 0.0 (0.0-0.7) K/uL Baso # (Auto) 0.0 (0.0-0.1) K/uL Nucleated RBC % 0.0 /100WBC Nucleated RBCs # 0 K/uL Sodium 138 (136-148) mmol/L Potassium 4.1 (3.5-5.1) mmol/L Chloride 103 (98-107) mmol/L Carbon Dioxide 29.1 (21.0-32.0) mmol/L BUN 13 (7.0-18.0) mg/dL Creatinine 0.7 L (0.8-1.3) mg/dL Est Cr Clr Drug Dosing 124.19 mL/min Estimated GFR (MDRD) > 60.0 ml/min Glucose 128 H (74-106) mg/dL Calcium 7.6 L (8.5-10.1) mg/dL Fausto Results Last 24 Hours: Microbiology 02/01/19 17:03 Aerobic Blood Culture - Preliminary Blood - Venous - Lab Draw NO GROWTH AFTER 2 DAYS Anaerobic Blood Culture - Preliminary NO GROWTH AFTER 2 DAYS 02/01/19 16:50 Aerobic Blood Culture - Preliminary Blood - Venous NO GROWTH AFTER 2 DAYS Anaerobic Blood Culture - Preliminary NO GROWTH AFTER 2 DAYS Med Orders - Current: Current Medications Acetaminophen (Tylenol) 650 mg PO Q4H PRN PRN Reason: Pain (Mild 1-3)/fever Last Admin: 02/04/19 04:06 Dose: 650 mg Docusate Sodium (Colace) 100 mg PO BID PRN PRN Reason: Constipation Enoxaparin Sodium (Lovenox) 40 mg SUBCUT Q24H [facility] Last Admin: 02/03/19 21:00 Dose: 40 mg Linezolid 600 mg/ Premix 300 mls @ 300 mls/hr IV Q12H [facility] Last Admin: 02/04/19 06:07 Dose: 300 mls/hr Sodium Chloride (Normal Saline) 1,000 mls @ 125 mls/hr IV ASDIRECTED [facility] Last Admin: 02/04/19 00:17 Dose: 125 mls/hr Clindamycin Phosphate 600 mg/ (Premix) 50 mls @ 100 mls/hr IV Q6H [facility] Ondansetron HCl (Zofran Odt) 4 mg PO Q6H PRN PRN Reason: nausea, able to take PO Last Admin: 02/02/19 23:14 Dose: 4 mg Oxycodone HCl (Oxycodone) 5 mg PO Q4H PRN PRN Reason: Pain (moderate 4-6) Sodium Chloride (Saline Flush) 10 ml FLUSH ASDIRECTED PRN PRN Reason: Keep Vein Open Last Admin: 02/01/19 17:46 Dose: 10 ml Sodium Chloride (Saline Flush) 2.5 ml FLUSH ASDIRECTED PRN PRN Reason: Keep Vein Open Last Admin: 02/01/19 17:46 Dose: 2.5 ml Temazepam (Restoril) 15 mg PO BEDTIME PRN PRN Reason: Sleep Discontinued Medications Acetaminophen (Tylenol Extra Strength) 500 mg PO ONETIME ONE Stop: 02/02/19 03:41 Last Admin: 02/02/19 03:53 Dose: 500 mg Piperacillin Sod/Tazobactam (Sod 3.375 gm/ Sodium Chloride) 50 mls @ 100 mls/ hr IV ONETIME ONE Stop: 02/01/19 17:04 Last Admin: 02/01/19 17:45 Dose: 100 mls/hr Linezolid 600 mg/ Premix 300 mls @ 300 mls/hr IV ONETIME ONE Stop: 02/01/19 17:34 Last Admin: 02/01/19 18:18 Dose: 300 mls/hr Sodium Chloride (Normal Saline) 1,000 mls @ 999 mls/hr IV STAT ONE Stop: 02/01/19 19:06 Last Admin: 02/01/19 18:15 Dose: 999 mls/hr Ibuprofen (Motrin) 400 mg PO ONETIME ONE Stop: 02/02/19 07:59 Last Admin: 02/02/19 08:18 Dose: 400 mg Morphine Sulfate (Morphine) 2 mg IVPUSH Q2H PRN PRN Reason: Pain (severe 7-10) Stop: 02/02/19 18:40 Morphine Sulfate (Morphine) 2 mg IVPUSH Q2H PRN PRN Reason: Pain (severe 7-10) Stop: 02/02/19 18:40 Ondansetron HCl (Zofran) 4 mg IVPUSH ONETIME ONE Stop: 02/01/19 16:37 Last Admin: 02/01/19 17:42 Dose: 4 mg - Exam Quality Assessment: Supplemental Oxygen, Skin Breakdown General: Alert (Morbidly obese), Oriented, Cooperative, No Acute Distress HEENT: Pupils Equal, Pupils Reactive, EOMI. No: Mucous Membr. Moist/[place] (Dry) Neck: Supple, Trachea Midline Lungs: Clear to Auscultation, Normal Respiratory Effort Cardiovascular: Regular Rate, Regular Rhythm GI/Abdominal Exam: Normal Bowel Sounds, Soft, Non-Tender, No Distention, Other ( Obese) Back Exam: Normal Inspection, Full Range of Motion Extremities: Normal Inspection, Pedal Edema (Increasing edema right lower extremity, peau d'orange skin) Skin: Warm, Dry, Other (Circumferential area of erythema right lower extremity consistent with cellulitis) Neurological: No New Focal Deficit Psy/Mental Status: Alert, Normal Affect, Normal Mood - Problem List & Annotations (1) Sepsis SNOMED Code(s): 14114040 Code(s): A41.9 - SEPSIS, UNSPECIFIED ORGANISM Status: Resolved Priority: High Current Visit: Yes Qualifiers: Sepsis type: sepsis due to unspecified organism Qualified Code(s): A41.9 - Sepsis, unspecified organism Annotation/Comment:: Cellulitis right lower extremity source of sepsis (2) Cellulitis of leg without foot, right SNOMED Code(s): 356987587 Code(s): L03.115 - CELLULITIS OF RIGHT LOWER LIMB Status: Acute Priority : High Current Visit: Yes Annotation/Comment:: Recurrent (3) Obesity, morbid, BMI 40.0-49.9 SNOMED Code(s): 103575201, 925492110, 37302476177858 Code(s): E66.01 - MORBID (SEVERE) OBESITY DUE TO EXCESS CALORIES Status: Chronic Priority: Medium Current Visit: Yes - Problem List Review Problem List Initiated/Reviewed/Updated: Yes - My Orders Last 24 Hours: My Active Orders 02/04/19 07:57 Consult to Occupational Therapy [OT Evaluation and Treatment] [CONS] Routine 02/04/19 08:00 Clindamycin Phosphate in D5W [Cleocin in D5W] 600 mg Premix Bag 1 bag IV Q6H - Assessment Assessment:: The patient is a 28-year-old gentleman who has sufficient diagnostic criteria at this time to be identified with sepsis. The patient will continue on aggressive fluid resuscitation with normal saline at 125 mL per hour. The patient will also be continued on his Zyvox 600 mg IV twice a day. Because of the infection and the patient's morbid obesity is at high risk for DVT and he' ll be maintained on Lovenox 40 mg subcutaneous on a daily basis. The patient will kept on a regular diet as tolerated. I've ordered repeat laboratory testings. The patient will also have an ultrasound of his right lower extremity order to help exclude DVT. Patient should be appropriate for discharge once leukocytosis has resolved, fevers have resolved and the patient's symptoms had improved. This may take 1-2 days. - Plan Plan:: The patient is a 28-year-old gentleman who has been admitted secondary sepsis with cellulitis of his right lower extremity. Sepsis has resolved. The patient' s cellulitis appears to be worsening today as he has had increased swelling with peau d'orange skin changes. The patient also has a normal white cell count today and he has been afebrile. Because of the increased change in his edema I have ordered in addition to those Zyvox and clindamycin at 600 mg IV every 6 hours. Repeat laboratory studies been ordered. Previously ordered Doppler of the right lower extremity showed no DVT. The patient will be kept on DVT prophylaxis. Wound care has been ordered for the patient. I've ordered an MRI to help exclude necrotizing fasciitis. I've also ordered repeat lactate level. The patient does have chronic lymphedema. OT will also evaluate the patient for the chronic lymphedema.
[2019-02-04] MEDS: Clindamycin Phosphate in D5W 600 MG in Premix Bag 1 BAG IV SCH ×6 (09:00→20:26)
--- NOTE | 2019-02-04 11:19 | MR ---
INDICATION: Right lower extremity cellulitis. Evaluate for abscess or fasciitis. TECHNIQUE: Axial T1 and T2 fat sat, coronal PD and T2 fat-sat and sagittal STIR sequences from above the knee to midfoot. FINDINGS: Small effusion of the knee. Prominent hazy and reticular edema signal throughout the subcutaneous soft tissues of the calf increasing and conspicuity intensity distally. Fluid signal tracks along the anterior tibial margin although and no organized fashion. No periosteal edema or marrow edema. Prominent uniform skin thickening also increases distally to the ankle. Normal muscle bulk and signal with no indication for fasciitis. No effusion of the ankle. No tenosynovitis. IMPRESSION: Dense edema and skin thickening commensurate with clinical diagnosis of cellulitis. No abscess or fasciitis. Dictated by Shamar Ernandez MD @ Feb 04 2019 11:16AM Signed by Dr. Shamar Ernandez @ Feb 04 2019 11:16AM
[2019-02-04] MEDS: Enoxaparin 40 MG/0.4 ML Syringe SUBCUT SCH (20:29)
[2019-02-05] MEDS: Clindamycin Phosphate in D5W 600 MG in Premix Bag 1 BAG IV SCH ×8 (01:44→20:35)
[2019-02-05] MEDS: Linezolid 600 MG in Premix Bag 1 BAG IV SCH ×2 (05:32→17:29)
[2019-02-05] MEDS: Sodium Chloride 0.9% 1,000 ML IV SCH ×2 (06:05→17:28)
[2019-02-05 07:02] LABS: CHLORIDE,CL 102 mmol/L (98-107); SODIUM,NA 139 mmol/L (136-148)
--- NOTE | 2019-02-05 17:14 | PCM.PN ---
- General Info Date of Service: 02/05/19 Admission Dx/Problem (Free Text): Admission Diagnosis/Problem Admission Diagnosis/Problem Cellulitis right lower extremity, sepsis due to skin source Subjective Update: The patient is a 28-year-old gentleman who had been admitted to acute hospitalization on February 01, 2019 secondary to acute onset of cellulitis of his right lower extremity. Patient says he is getting somewhat better. He has been on linezolid and clindamycin. Patient has been tolerating these well. He has been complaining of some more swelling of his right lower extremity. The patient has been tolerating his diet. Previously documented MRI did not show any signs of necrotizing fasciitis. Should be noted the patient also has required oxygen over the past day to keep his saturations above 92%. Functional Status: Reports: Pain Controlled - Review of Systems General: Reports: Weakness HEENT: Reports: No Symptoms Pulmonary: Reports: No Symptoms Cardiovascular: Reports: No Symptoms Gastrointestinal: Reports: No Symptoms Genitourinary: Reports: No Symptoms Musculoskeletal: Reports: No Symptoms Skin: Reports: Other Neurological: Reports: No Symptoms Psychiatric: Reports: No Symptoms - Patient Data Vitals - Most Recent: Last Vital Signs Temp 36.4 C 02/05/19 11:00 Pulse 78 02/05/19 11:00 Resp 20 02/05/19 11:00 BP 143/88 H 02/05/19 11:00 Pulse Ox 92 L 02/05/19 12:00 Weight - Most Recent: 124.4 kg I&O - Last 24 Hours: Intake & Output 02/05/19 02/05/19 02/05/19 06:59 14:59 22:59 Intake Total 716 1778 Output Total 400 350 Balance 316 1428 Lab Results Last 24 Hours: Laboratory Results - last 24 hr 02/05/19 02/05/19 Range/Units 06:19 06:19 WBC 8.69 (4.0-11.0) K/uL RBC 4.76 (4.50-5.90) M/uL Hgb 13.2 (13.0-17.0) g/dL Hct 40.1 (38.0-50.0) % MCV 84.2 (80.0-98.0) fL MCH 27.7 (27.0-32.0) pg MCHC 32.9 (31.0-37.0) g/dL RDW Std Deviation 40.2 (28.0-62.0) fl RDW Coeff of Gabriella 13 (11.0-15.0) % Plt Count 138 L (150-400) K/uL MPV 10.90 (7.40-12.00) fL Neut % (Auto) 76.9 (48.0-80.0) % Lymph % (Auto) 16.8 (16.0-40.0) % [place] % (Auto) 5.9 (0.0-15.0) % Eos % (Auto) 0.3 (0.0-7.0) % Baso % (Auto) 0.1 (0.0-1.5) % Neut # (Auto) 6.7 H (1.4-5.7) K/uL Lymph # (Auto) 1.5 (0.6-2.4) K/uL [place] # (Auto) 0.5 (0.0-0.8) K/uL Eos # (Auto) 0.0 (0.0-0.7) K/uL Baso # (Auto) 0.0 (0.0-0.1) K/uL Nucleated RBC % 0.0 /100WBC Nucleated RBCs # 0 K/uL Sodium 139 (136-148) mmol/L Potassium 3.9 (3.5-5.1) mmol/L Chloride 102 (98-107) mmol/L Carbon Dioxide 28.9 (21.0-32.0) mmol/L BUN 14 (7.0-18.0) mg/dL Creatinine 0.8 (0.8-1.3) mg/dL Est Cr Clr Drug Dosing 108.66 mL/min Estimated GFR (MDRD) > 60.0 ml/min Glucose 148 H (74-106) mg/dL Calcium 8.3 L (8.5-10.1) mg/dL Fausto Results Last 24 Hours: Microbiology 02/01/19 17:03 Aerobic Blood Culture - Preliminary Blood - Venous - Lab Draw NO GROWTH AFTER 4 DAYS Anaerobic Blood Culture - Preliminary NO GROWTH AFTER 4 DAYS 02/01/19 16:50 Aerobic Blood Culture - Preliminary Blood - Venous NO GROWTH AFTER 4 DAYS Anaerobic Blood Culture - Preliminary NO GROWTH AFTER 4 DAYS Med Orders - Current: Current Medications Acetaminophen (Tylenol) 650 mg PO Q4H PRN PRN Reason: Pain (Mild 1-3)/fever Last Admin: 02/04/19 04:06 Dose: 650 mg Docusate Sodium (Colace) 100 mg PO BID PRN PRN Reason: Constipation Enoxaparin Sodium (Lovenox) 40 mg SUBCUT Q24H [facility] Last Admin: 02/04/19 20:29 Dose: 40 mg Linezolid 600 mg/ Premix 300 mls @ 300 mls/hr IV Q12H [facility] Last Admin: 02/05/19 05:32 Dose: 300 mls/hr Sodium Chloride (Normal Saline) 1,000 mls @ 125 mls/hr IV ASDIRECTED [facility]1983 Last Admin: 02/05/19 06:05 Dose: 125 mls/hr Clindamycin Phosphate 600 mg/ (Premix) 50 mls @ 100 mls/hr IV Q6H [facility] Last Admin: 02/05/19 14:22 Dose: 100 mls/hr Ondansetron HCl (Zofran Odt) 4 mg PO Q6H PRN PRN Reason: nausea, able to take PO Last Admin: 02/02/19 23:14 Dose: 4 mg Oxycodone HCl (Oxycodone) 5 mg PO Q4H PRN PRN Reason: Pain (moderate 4-6) Sodium Chloride (Saline Flush) 10 ml FLUSH ASDIRECTED PRN PRN Reason: Keep Vein Open Last Admin: 02/01/19 17:46 Dose: 10 ml Sodium Chloride (Saline Flush) 2.5 ml FLUSH ASDIRECTED PRN PRN Reason: Keep Vein Open Last Admin: 02/01/19 17:46 Dose: 2.5 ml Temazepam (Restoril) 15 mg PO BEDTIME PRN PRN Reason: Sleep Discontinued Medications Acetaminophen (Tylenol Extra Strength) 500 mg PO ONETIME ONE Stop: 02/02/19 03:41 Last Admin: 02/02/19 03:53 Dose: 500 mg Piperacillin Sod/Tazobactam (Sod 3.375 gm/ Sodium Chloride) 50 mls @ 100 mls/ hr IV ONETIME ONE Stop: 02/01/19 17:04 Last Admin: 02/01/19 17:45 Dose: 100 mls/hr Linezolid 600 mg/ Premix 300 mls @ 300 mls/hr IV ONETIME ONE Stop: 02/01/19 17:34 Last Admin: 02/01/19 18:18 Dose: 300 mls/hr Sodium Chloride (Normal Saline) 1,000 mls @ 999 mls/hr IV STAT ONE Stop: 02/01/19 19:06 Last Admin: 02/01/19 18:15 Dose: 999 mls/hr Ibuprofen (Motrin) 400 mg PO ONETIME ONE Stop: 02/02/19 07:59 Last Admin: 02/02/19 08:18 Dose: 400 mg Morphine Sulfate (Morphine) 2 mg IVPUSH Q2H PRN PRN Reason: Pain (severe 7-10) Stop: 02/02/19 18:40 Morphine Sulfate (Morphine) 2 mg IVPUSH Q2H PRN PRN Reason: Pain (severe 7-10) Stop: 02/02/19 18:40 Ondansetron HCl (Zofran) 4 mg IVPUSH ONETIME ONE Stop: 02/01/19 16:37 Last Admin: 02/01/19 17:42 Dose: 4 mg - Exam Quality Assessment: Supplemental Oxygen General: Alert, Oriented, Cooperative, No Acute Distress HEENT: Pupils Equal, Pupils Reactive, EOMI, Mucous Membr. Moist/[place] Neck: Supple, Trachea Midline Lungs: Clear to Auscultation, Normal Respiratory Effort Cardiovascular: Regular Rate, Regular Rhythm GI/Abdominal Exam: Normal Bowel Sounds, No Distention, Other (Obese) Back Exam: Normal Inspection, Full Range of Motion Extremities: Normal Inspection, Pedal Edema (Chronic lymphedema lower extremities right greater than left) Skin: Warm, Dry, Other (Area cellulitis right lower extremity circumferential, erythema) Wound/Incisions: Healing Well, No Drainage, Erythema Neurological: No New Focal Deficit Psy/Mental Status: Alert, Normal Affect, Normal Mood - Problem List & Annotations (1) Sepsis SNOMED Code(s): 79090394 Code(s): A41.9 - SEPSIS, UNSPECIFIED ORGANISM Status: Resolved Priority: High Current Visit: Yes Qualifiers: Sepsis type: sepsis due to unspecified organism Qualified Code(s): A41.9 - Sepsis, unspecified organism Annotation/Comment:: Cellulitis right lower extremity source of sepsis (2) Obesity hypoventilation syndrome SNOMED Code(s): 929008174 Code(s): E66.2 - MORBID (SEVERE) OBESITY WITH ALVEOLAR HYPOVENTILATION Status: Chronic Priority: High Current Visit: Yes (3) Cellulitis of leg without foot, right SNOMED Code(s): 882070901 Code(s): L03.115 - CELLULITIS OF RIGHT LOWER LIMB Status: Acute Priority : High Current Visit: Yes Annotation/Comment:: Recurrent (4) Obesity, morbid, BMI 40.0-49.9 SNOMED Code(s): 432963689, 893858513, 85014983892779 Code(s): E66.01 - MORBID (SEVERE) OBESITY DUE TO EXCESS CALORIES Status: Chronic Priority: Medium Current Visit: Yes - Problem List Review Problem List Initiated/Reviewed/Updated: Yes - Assessment Assessment:: The patient is a 28-year-old gentleman who has sufficient diagnostic criteria at this time to be identified with sepsis. The patient will continue on aggressive fluid resuscitation with normal saline at 125 mL per hour. The patient will also be continued on his Zyvox 600 mg IV twice a day. Because of the infection and the patient's morbid obesity is at high risk for DVT and he' ll be maintained on Lovenox 40 mg subcutaneous on a daily basis. The patient will kept on a regular diet as tolerated. I've ordered repeat laboratory testings. The patient will also have an ultrasound of his right lower extremity order to help exclude DVT. Patient should be appropriate for discharge once leukocytosis has resolved, fevers have resolved and the patient's symptoms had improved. This may take 1-2 days. - Plan Plan:: The patient is 28-year-old gentleman who had been admitted secondary to sepsis. This is resolved. He has remained with cellulitis of his right lower extremity on superimposed over chronic lymphedema. The patient also had an MRI which did not show any evidence of necrotizing fasciitis. His results of this the patient will be continued on dual antibiotic therapy. He is also required oxygen support and this will be continued secondary to the obesity hypoventilation syndrome. He'll be continued on regular diet as tolerated. Continue with wound care. I've ordered repeat laboratory studies in the morning. OT will continue to evaluate the patient for wound care. The patient may be appropriate for discharge in the morning with by mouth antibiotics.
[2019-02-05] MEDS: Enoxaparin 40 MG/0.4 ML Syringe SUBCUT SCH (20:34)
[2019-02-06] MEDS: Clindamycin Phosphate in D5W 600 MG in Premix Bag 1 BAG IV SCH ×6 (01:27→13:28)
[2019-02-06] MEDS: Sodium Chloride 0.9% 1,000 ML IV SCH ×2 (03:21→13:23)
[2019-02-06] MEDS: Linezolid 600 MG in Premix Bag 1 BAG IV SCH (06:13)
[2019-02-06 06:33] LABS: CHLORIDE,CL 105 mmol/L (98-107); SODIUM,NA 140 mmol/L (136-148)
[2019-02-06 11:33] VITALS: BP 131/67
--- NOTE | 2019-02-06 13:34 | PCM.DCSUM1 ---
Discharge Summary - Hospital Course HPI Initial Comments: Admitted secondary to sepsis, cellulitis right lower extremity Diagnosis: Stroke: No - Discharge Data Discharge Date: 02/06/19 Discharge Disposition: Home, Self-Care 01 Condition: Fair - Discharge Diagnosis/Problem(s) (1) Sepsis SNOMED Code(s): 27222719 ICD Code: A41.9 - SEPSIS, UNSPECIFIED ORGANISM Status: Resolved Priority : High Problem Details: Cellulitis right lower extremity source of sepsis Qualifiers: Sepsis type: sepsis due to unspecified organism Qualified Code(s): A41.9 - Sepsis, unspecified organism (2) Obesity hypoventilation syndrome SNOMED Code(s): 090818092 ICD Code: E66.2 - MORBID (SEVERE) OBESITY WITH ALVEOLAR HYPOVENTILATION Status: Chronic Priority: High (3) Cellulitis of leg without foot, right SNOMED Code(s): 373280676 ICD Code: L03.115 - CELLULITIS OF RIGHT LOWER LIMB Status: Acute Priority : High Problem Details: Recurrent (4) Obesity, morbid, BMI 40.0-49.9 SNOMED Code(s): 072995038, 759458850, 95124941487745 ICD Code: E66.01 - MORBID (SEVERE) OBESITY DUE TO EXCESS CALORIES Status: Chronic Priority: Medium (5) Lymphedema of both lower extremities SNOMED Code(s): 26904334485908852 ICD Code: I89.0 - LYMPHEDEMA, NOT ELSEWHERE CLASSIFIED Status: Acute - Patient Summary/Data Consults: Consultations 02/04/19 07:57 Consult to Occupational Therapy [OT Evaluation and Treatment] [CONS] Routine Hospital Course: The patient is a 28-year-old gentleman who had presented to the emergency department on February 01, 2019 for admission secondary to onset of cellulitis in his right lower extremity. The patient has a history of chronic cellulitis as well as chronic lymphedema to both lower extremities. The patient had an initial diagnosis of sepsis and this should resolve quickly with prompt antibiotic treatment and IV fluids. The patient previously had an allergic reaction to vancomycin and the patient was started on Zyvox IV 600 mg by mouth twice a day. Upon admission the patient's white blood cell count was at 19,000 showing a left shift. The patient had worsened somewhat by day 2 of hospitalization and in addition to the Zyvox patient was placed on clindamycin 600 mg IV every 6 hours. The patient also had a small wound to the anterior mid rob there was addressed by wound care. Blood cultures taken and are currently pending. This is likely the source of the infection. On February 01, 2019 the patient had an x-ray of his right lower extremity which did not show any finding of fracture or acute bony destruction and no subcutaneous gas. Out of concern for partially treated necrotizing fasciitis the patient had an MRI of his right lower extremity which show prominent hazy reticular edema signal throughout the subcutaneous tissues with no indication of fasciitis. There is also no abscess formation. Initially because of the patient's fever, leukocytosis and elevated lactic acid he was considered to have sepsis and he was aggressively fluid resuscitated. The patient's MAXIMUM TEMPERATURE was 39.2 Celsius. The patient was also treated with 40 mg of Lovenox daily for DVT prophylaxis. The patient had continued to improve throughout the course of hospitalization. He still had evidence of chronic lymphedema which will need to be addressed by his primary care physician. The patient had been referred to PT OT for further treatment of small wound anterior rob and his lymphedema. On discharge the patient had been prescribed Zyvox 600 mg by mouth every 12 hours and he was given 30 tablets. The patient also was prescribed clindamycin 300 mg by mouth 3 times a day and also given 30 capsules. Patient has been recommended to follow-up with his primary care physician. He is also to follow-up with PT OT for wound care. Patient has been recommended to continue with his diet as tolerated. He is also to have activity as tolerated. Patient has been hemodynamically stable and he is discharged from acute hospitalization with the recommendations above. - Patient Instructions Diet: Heart Healthy Diet, Drink 8-10+ Glasses/Day Activity: As Tolerated Notify Provider of: Fever, Increased Pain - Discharge Plan *PRESCRIPTION DRUG MONITORING PROGRAM REVIEWED*: No *COPY OF PRESCRIPTION DRUG MONITORING REPORT IN PATIENT SANTIAGO: No Prescriptions/Med Rec: Clindamycin HCl 300 mg PO TID #30 capsule Linezolid [Zyvox] 600 mg PO Q12H #30 tab Home Medications: Home Meds Acetaminophen [Tylenol] 650 mg PO TID 02/01/19 [History] Clindamycin HCl 300 mg PO TID #30 capsule 02/06/19 [Rx] Linezolid [Zyvox] 600 mg PO Q12H #30 tab 02/06/19 [Rx] Oxygen Therapy Mode: Room Air Patient Handouts: Linezolid tablets, Clindamycin capsules, Cellulitis, Adult, [id number], Lymphedema Referrals: [facility] [Outside] Alistair Hazel MD [Physician] - 02/11/19 8:00 am - Discharge Summary/Plan Comment DC Time >30 min.: Yes - General Info Date of Service: 02/06/19 Admission Dx/Problem (Free Text: Admission Diagnosis/Problem Admission Diagnosis/Problem Cellulitis right lower extremity, sepsis due to skin source Subjective Update: The patient says that he is doing much better today. He is having significantly less pain. He feels like he can go home. Functional Status: Reports: Pain Controlled - Review of Systems General: Reports: No Symptoms HEENT: Reports: No Symptoms Pulmonary: Reports: No Symptoms Cardiovascular: Reports: No Symptoms Gastrointestinal: Reports: No Symptoms Genitourinary: Reports: No Symptoms Musculoskeletal: Reports: No Symptoms Skin: Reports: Rash Neurological: Reports: No Symptoms Psychiatric: Reports: No Symptoms - Patient Data Vitals - Most Recent: Last Vital Signs Temp 36.8 C 02/06/19 11:31 Pulse 82 02/06/19 11:31 Resp 15 02/06/19 11:31 BP 131/67 02/06/19 11:31 Pulse Ox 93 L 02/06/19 11:31 Weight - Most Recent: 124.4 kg I&O - Last 24 hours: Intake & Output 02/05/19 02/06/19 02/06/19 22:59 06:59 14:59 Intake Total 1828 2746 Output Total 350 1475 Balance 1478 1271 Lab Results - Last 24 hrs: Laboratory Results - last 24 hr 02/06/19 02/06/19 Range/Units 05:55 05:55 WBC 8.65 (4.0-11.0) K/uL RBC 4.69 (4.50-5.90) M/uL Hgb 13.0 (13.0-17.0) g/dL Hct 39.0 (38.0-50.0) % MCV 83.2 (80.0-98.0) fL MCH 27.7 (27.0-32.0) pg MCHC 33.3 (31.0-37.0) g/dL RDW Std Deviation 40.2 (28.0-62.0) fl RDW Coeff of Gabriella 13 (11.0-15.0) % Plt Count 149 L (150-400) K/uL MPV 10.60 (7.40-12.00) fL Neut % (Auto) 74.1 (48.0-80.0) % Lymph % (Auto) 17.0 (16.0-40.0) % [place] % (Auto) 8.0 (0.0-15.0) % Eos % (Auto) 0.8 (0.0-7.0) % Baso % (Auto) 0.1 (0.0-1.5) % Neut # (Auto) 6.4 H (1.4-5.7) K/uL Lymph # (Auto) 1.5 (0.6-2.4) K/uL [place] # (Auto) 0.7 (0.0-0.8) K/uL Eos # (Auto) 0.1 (0.0-0.7) K/uL Baso # (Auto) 0.0 (0.0-0.1) K/uL Nucleated RBC % 0.0 /100WBC Nucleated RBCs # 0 K/uL Sodium 140 (136-148) mmol/L Potassium 3.8 (3.5-5.1) mmol/L Chloride 105 (98-107) mmol/L Carbon Dioxide 28.9 (21.0-32.0) mmol/L BUN 11 (7.0-18.0) mg/dL Creatinine 0.7 L (0.8-1.3) mg/dL Est Cr Clr Drug Dosing 124.19 mL/min Estimated GFR (MDRD) > 60.0 ml/min Glucose 115 H (74-106) mg/dL Calcium 8.0 L (8.5-10.1) mg/dL ABDIRAHMAN Results - Last 24 hrs: Microbiology 02/01/19 17:03 Aerobic Blood Culture - Preliminary Blood - Venous - Lab Draw NO GROWTH AFTER 4 DAYS Anaerobic Blood Culture - Preliminary NO GROWTH AFTER 4 DAYS 02/01/19 16:50 Aerobic Blood Culture - Preliminary Blood - Venous NO GROWTH AFTER 4 DAYS Anaerobic Blood Culture - Preliminary NO GROWTH AFTER 4 DAYS Med Orders - Current: Current Medications Acetaminophen (Tylenol) 650 mg PO Q4H PRN PRN Reason: Pain (Mild 1-3)/fever Last Admin: 02/04/19 04:06 Dose: 650 mg Docusate Sodium (Colace) 100 mg PO BID PRN PRN Reason: Constipation Enoxaparin Sodium (Lovenox) 40 mg SUBCUT Q24H [facility] Last Admin: 02/05/19 20:34 Dose: 40 mg Linezolid 600 mg/ Premix 300 mls @ 300 mls/hr IV Q12H [facility] Last Admin: 02/06/19 06:13 Dose: 300 mls/hr Sodium Chloride (Normal Saline) 1,000 mls @ 125 mls/hr IV ASDIRECTED [facility] Last Admin: 02/06/19 13:23 Dose: 125 mls/hr Clindamycin Phosphate 600 mg/ (Premix) 50 mls @ 100 mls/hr IV Q6H [facility] Last Admin: 02/06/19 13:28 Dose: 100 mls/hr Ondansetron HCl (Zofran Odt) 4 mg PO Q6H PRN PRN Reason: nausea, able to take PO Last Admin: 02/02/19 23:14 Dose: 4 mg Oxycodone HCl (Oxycodone) 5 mg PO Q4H PRN PRN Reason: Pain (moderate 4-6) Sodium Chloride (Saline Flush) 10 ml FLUSH ASDIRECTED PRN PRN Reason: Keep Vein Open Last Admin: 02/01/19 17:46 Dose: 10 ml Sodium Chloride (Saline Flush) 2.5 ml FLUSH ASDIRECTED PRN PRN Reason: Keep Vein Open Last Admin: 02/01/19 17:46 Dose: 2.5 ml Temazepam (Restoril) 15 mg PO BEDTIME PRN PRN Reason: Sleep Discontinued Medications Acetaminophen (Tylenol Extra Strength) 500 mg PO ONETIME ONE Stop: 02/02/19 03:41 Last Admin: 02/02/19 03:53 Dose: 500 mg Piperacillin Sod/Tazobactam (Sod 3.375 gm/ Sodium Chloride) 50 mls @ 100 mls/ hr IV ONETIME ONE Stop: 02/01/19 17:04 Last Admin: 02/01/19 17:45 Dose: 100 mls/hr Linezolid 600 mg/ Premix 300 mls @ 300 mls/hr IV ONETIME ONE Stop: 02/01/19 17:34 Last Admin: 02/01/19 18:18 Dose: 300 mls/hr Sodium Chloride (Normal Saline) 1,000 mls @ 999 mls/hr IV STAT ONE Stop: 02/01/19 19:06 Last Admin: 02/01/19 18:15 Dose: 999 mls/hr Ibuprofen (Motrin) 400 mg PO ONETIME ONE Stop: 02/02/19 07:59 Last Admin: 02/02/19 08:18 Dose: 400 mg Morphine Sulfate (Morphine) 2 mg IVPUSH Q2H PRN PRN Reason: Pain (severe 7-10) Stop: 02/02/19 18:40 Morphine Sulfate (Morphine) 2 mg IVPUSH Q2H PRN PRN Reason: Pain (severe 7-10) Stop: 02/02/19 18:40 Ondansetron HCl (Zofran) 4 mg IVPUSH ONETIME ONE Stop: 02/01/19 16:37 Last Admin: 02/01/19 17:42 Dose: 4 mg - Exam Quality Assessment: Denies: Supplemental Oxygen General: Reports: Alert, Oriented, Cooperative, No Acute Distress HEENT: Reports: Pupils Equal, Pupils Reactive, EOMI, Mucous Membr. Moist/[place] Neck: Reports: Supple, Trachea Midline Lungs: Reports: Clear to Auscultation, Normal Respiratory Effort Cardiovascular: Reports: Regular Rate, Regular Rhythm GI/Abdominal Exam: Normal Bowel Sounds, No Distention, Other (Obese) Back Exam: Reports: Normal Inspection, Full Range of Motion Extremities: Normal Inspection, Pedal Edema (Chronic lymphedema) Skin: Reports: Warm, Dry, Other (Cellulitis much improved no erythema) Neurological: Reports: No New Focal Deficit Psy/Mental Status: Reports: Alert, Normal Affect, Normal Mood
== END 2019-02-06 15:45 | disposition home or self-care (01) | DRG 872 ==
LOC: MW.ED 16:14 → MW.MS 18:22 → OBSVTOIN 02-03 11:32 → MW.MS 02-03 13:45
PROVIDERS: ADMIT Internal Medicine; ATTEND Internal Medicine
DX: A41.9 Sepsis, unspecified organism (principal); L03.115 Cellulitis of right lower limb; E66.2 Morbid (severe) obesity with alveolar hypoventilation; Z68.42 Body mass index [BMI] 45.0-49.9, adult; E66.9 Obesity, unspecified; Z88.1 Allergy status to other antibiotic agents; Z79.899 Other long term (current) drug therapy; Z91.041 Radiographic dye allergy status; Z68.41 Body mass index [BMI] 40.0-44.9, adult
CPT/HCPCS: 36415 ×2; 73590; 80053 ×2; 83605 ×2; 85025 ×2; 87040 ×2; 93971; 96361; 96365; 96367; 96375; 99284; A4217; A9270 ×8; J1650 ×2; J2020 ×4; J2405; J2543; J7040 ×5; J7050; 36410; 73718-26-RT; 73718-RT; 80048; 96366; 96372; 96376; G0378; J3490

== ENCOUNTER 2019-06-09 00:33 | Emergency (ER) | payer BC, MEDICARE ==
[2019-06-09] MEDS ORDERED: Ondansetron 4 MG/2 ML SDV IVPUSH ONE (00:38)
[2019-06-09] MEDS ORDERED: Sodium Chloride 0.9% 1,000 ML IV ONE (00:38)
--- NOTE | 2019-06-09 00:39 | EDM.PDOC ---
ED HPI GENERAL MEDICAL PROBLEM - General Chief Complaint: Gastrointestinal Problem Stated Complaint: VOMITING Time Seen by Provider: 06/09/19 00:38 Source of Information: Reports: Patient - History of Present Illness INITIAL COMMENTS - FREE TEXT/NARRATIVE: HISTORY AND PHYSICAL: History of present illness: [Patient presents with episode of vomiting tonight he continues to vomit in the emergency room no fever chills sweats no chest pain he does have some mild abdominal discomfort on exam on deep palpation] Review of systems: As per history of present illness and below otherwise all systems reviewed and negative. Past medical history: As per history of present illness and as reviewed below otherwise noncontributory. Surgical history: As per history of present illness and as reviewed below otherwise noncontributory. Social history: No reported history of drug or alcohol abuse. Family history: As per history of present illness and as reviewed below otherwise noncontributory. Physical exam: HEENT: Atraumatic, normocephalic, pupils reactive, negative for conjunctival pallor or scleral icterus, mucous membranes moist, throat clear, neck supple, nontender, trachea midline. Lungs: Clear to auscultation, breath sounds equal bilaterally, chest nontender. Heart: S1S2, regular, negative for clicks, rubs, or JVD. Abdomen: Soft, nondistended, diffuse nonfocal tenderness on deep palpation no guarding or rebound. Negative for masses or hepatosplenomegaly. Negative for costovertebral tenderness. Pelvis: Stable nontender. Genitourinary: Deferred. Rectal: Deferred. Extremities: Atraumatic, negative for cords or calf pain. Neurovascular unremarkable. Neuro: Awake, alert, oriented. Cranial nerves II through XII unremarkable. Cerebellum unremarkable. Motor and sensory unremarkable throughout. Exam nonfocal. Diagnostics: [CBC CMP UA CT abdomen pelvis no contrast ] Therapeutics: [Renal saline Zofran ] Impression: gastroenteritis definitive disposition and diagnosis as appropriate pending reevaluation and review of above. chest/abdominal Pain Score (Numeric/FACES): 10 - Related Data Allergies Allergy/AdvReac Type Severity Reaction Status Date / Time vancomycin Allergy Rash Verified 02/01/19 21:45 Iodinated Contrast Media AdvReac Renal Verified 02/01/19 21:45 Failure Home Meds: Home Meds Acetaminophen [Tylenol] 650 mg PO TID 02/01/19 [History] Furosemide 20 mg PO DAILY 06/09/19 [History] Potassium Chloride 10 meq PO DAILY 06/09/19 [History] Past Medical History - Past Health History Medical/Surgical History: Denies Medical/Surgical History HEENT History: Reports: None Cardiovascular History: Reports: None, Blood Clots/VTE/DVT Respiratory History: Reports: None Gastrointestinal History: Reports: Other (See Below) Other Gastrointestinal History: elevation in LFTs, abdominal US 09/2015 showed fatty liver and gallbladder sludge. Genitourinary History: Reports: None, UTI, Recurrent, Other (See Below) Other Genitourinary History: na Musculoskeletal History: Reports: None Neurological History: Reports: Other (See Below) Other Neuro History: hydrocephalus Psychiatric History: Reports: None Endocrine/Metabolic History: Reports: Obesity/BMI 30+ Hematologic History: Reports: None Immunologic History: Reports: None Oncologic (Cancer) History: Reports: None Dermatologic History: Reports: Cellulitis, Chronic Cellulitis Other Dermatologic History: RLE - Infectious Disease History Infectious Disease History: Reports: Chicken Pox - Past Surgical History Head Surgeries/Procedures: Reports: None HEENT Surgical History: Reports: None Cardiovascular Surgical History: Reports: None Respiratory Surgical History: Reports: None GI Surgical History: Reports: None Male Surgical History: Reports: None Endocrine Surgical History: Reports: None Neurological Surgical History: Reports: None Musculoskeletal Surgical History: Reports: None Oncologic Surgical History: Reports: None Dermatological Surgical History: Reports: None Social & Family History - Family History Family Medical History: Noncontributory Other Dermatologic Family History: family history of cellulitis - Caffeine Use Caffeine Use: Reports: None - Living Situation & Occupation Living situation: Reports: Single, with Family Occupation: Employed ED ROS GENERAL - Review of Systems Review Of Systems: See Below ED EXAM, GENERAL - Physical Exam Exam: See Below Course - Vital Signs Last Recorded V/S: Last Vital Signs Temp 96.8 F 06/09/19 00:35 Pulse 94 06/09/19 02:21 Resp 16 06/09/19 02:21 BP 146/76 H 06/09/19 02:21 Pulse Ox 93 L 06/09/19 02:21 - Orders/Labs/Meds Labs: Laboratory Tests 06/09/19 06/09/19 06/09/19 Range/Units 00:55 00:55 01:43 WBC 12.34 H (4.0-11.0) K/uL RBC 6.16 H (4.50-5.90) M/uL Hgb 17.4 H (13.0-17.0) g/dL Hct 47.7 (38.0-50.0) % MCV 77.4 L (80.0-98.0) fL MCH 28.2 (27.0-32.0) pg MCHC 36.5 (31.0-37.0) g/dL RDW Std Deviation 36.7 (28.0-62.0) fl RDW Coeff of Gabriella 13 (11.0-15.0) % Plt Count 235 (150-400) K/uL MPV 10.80 (7.40-12.00) fL Neut % (Auto) 78.2 (48.0-80.0) % Lymph % (Auto) 13.9 L (16.0-40.0) % [place] % (Auto) 6.2 (0.0-15.0) % Eos % (Auto) 1.5 (0.0-7.0) % Baso % (Auto) 0.2 (0.0-1.5) % Neut # (Auto) 9.7 H (1.4-5.7) K/uL Lymph # (Auto) 1.7 (0.6-2.4) K/uL [place] # (Auto) 0.8 (0.0-0.8) K/uL Eos # (Auto) 0.2 (0.0-0.7) K/uL Baso # (Auto) 0.0 (0.0-0.1) K/uL Sodium 142 (136-148) mmol/L Potassium 4.1 (3.5-5.1) mmol/L Chloride 102 (98-107) mmol/L Carbon Dioxide 27.6 (21.0-32.0) mmol/L BUN 20 H (7.0-18.0) mg/dL Creatinine 0.9 (0.8-1.3) mg/dL Est Cr Clr Drug Dosing 100.49 mL/min Estimated GFR (MDRD) > 60.0 ml/min Glucose 116 H (74-106) mg/dL Calcium 8.7 (8.5-10.1) mg/dL Total Bilirubin 0.9 (0.2-1.0) mg/dL AST 28 (15-37) IU/L ALT 64 H (14-63) IU/L Alkaline Phosphatase 79 (46-116) U/L Total Protein 8.1 (6.4-8.2) g/dL Albumin 4.3 (3.4-5.0) g/dL Globulin 3.8 (2.6-4.0) g/dL Albumin/Globulin Ratio 1.1 (0.9-1.6) Urine Color YELLOW Urine Appearance CLEAR Urine pH 6.5 (5.0-8.0) Ur Specific [place] 1.025 (1.001-1.035) Urine Protein 30 H (NEGATIVE) mg/dL Urine Glucose (UA) NEGATIVE (NEGATIVE) mg/dL Urine Ketones TRACE H (NEGATIVE) mg/dL Urine Occult Blood NEGATIVE (NEGATIVE) Urine Nitrite NEGATIVE (NEGATIVE) Urine Bilirubin NEGATIVE (NEGATIVE) Urine Urobilinogen 1.0 (<2.0) EU/dL Ur Leukocyte Esterase NEGATIVE (NEGATIVE) Urine RBC 0-1 (0-2/HPF) Urine WBC 0-2 (0-5/HPF) Ur Epithelial Cells FEW (NONE-FEW) Amorphous Sediment LIGHT (NEGATIVE) Urine Bacteria FEW (NEGATIVE) Urine Mucus LIGHT (NONE-MOD) Meds: Medications Discontinued Medications Generic Name Dose Route Start Last Admin Trade Name Poly PRN Reason Stop Dose Admin Sodium Chloride 1,000 mls @ 999 mls/hr 06/09/19 00:38 06/09/19 00:58 Normal Saline IV 06/09/19 01:38 999 mls/hr STAT ONE Administration Ondansetron HCl 8 mg 06/09/19 00:38 06/09/19 00:58 Zofran IVPUSH 06/09/19 00:39 8 mg ONETIME ONE Administration Departure - Departure Time of Disposition: 03:43 Disposition: Home, Self-Care 01 Condition: Good Clinical Impression: Gastroenteritis, Cholelithiasis - Discharge Information Forms: ED Department Discharge Additional Instructions: Fluid hydration as discussed medication as prescribed Return if symptoms persist or worsen Follow-up with primary care 2 weeks sooner as needed Follow with general surgery concerning gallstones [facility] - Primary Care [address] [place] [id number] [facility] - General Surgery Professional Building [address] [place] [address], [address] [place] [address] The following information is given to patients seen in the emergency department who are being discharged to home. This information is to outline your options for follow-up care. We provide all patients seen in our emergency department with a follow-up referral. The need for follow-up, as well as the timing and circumstances, are variable depending upon the specifics of your emergency department visit. If you don't have a primary care physician on staff, we will provide you with a referral. We always advise you to contact your personal physician following an emergency department visit to inform them of the circumstance of the visit and for follow-up with them and/or the need for any referrals to a consulting specialist. The emergency department will also refer you to a specialist when appropriate. This referral assures that you have the opportunity for follow-up care with a specialist. All of these measure are taken in an effort to provide you with optimal care, which includes your follow-up. Under all circumstances we always encourage you to contact your private physician who remains a resource for coordinating your care. When calling for follow-up care, please make the office aware that this follow-up is from your recent emergency room visit. If for any reason you are refused follow-up, please contact the [facility] emergency department at and asked to speak to the emergency department charge nurse.
[2019-06-09 01:22] LABS: BLOOD UREA NITROGEN,BUN 20 mg/dL (7.0-18.0); CARBON DIOXIDE,CO2 27.6 mmol/L (21.0-32.0); CHLORIDE,CL 102 mmol/L (98-107); GLUCOSE RANDOM 116 mg/dL (74-106); POTASSIUM,K 4.1 mmol/L (3.5-5.1); SODIUM,NA 142 mmol/L (136-148)
--- NOTE | 2019-06-09 02:32 | CT ---
INDICATION: Abdominal pain TECHNIQUE: CT abdomen and pelvis without contrast. COMPARISON: None. FINDINGS: Lower chest: Unremarkable. Liver: Mildly decreased density liver diffusely without focal lesion. Gallbladder and bile ducts: Cholelithiasis without gallbladder wall thickening or pericholecystic inflammation. Pancreas: Unremarkable. No mass or inflammation. Spleen: Normal in size. No masses. Adrenal glands: Normal in size. No nodules. Kidneys: Normal in size. No masses, stones, or hydronephrosis. GI tract: The stomach is unremarkable. There are no dilated loops of large or small intestine. Appendix is unremarkable. Vasculature: Unremarkable. Abdominal wall/Omentum/Peritoneum: Large fat containing right indirect inguinal hernia. Pelvis: Unremarkable. No pelvic masses. Bones: Unremarkable for age. IMPRESSION: 1. No evidence of nephrolithiasis or hydronephrosis. 2. Cholelithiasis without CT evidence of cholecystitis. 3. Fat containing right indirect inguinal hernia. 4. Fatty infiltration of the liver. Please note that all CT scans at this facility use dose modulation, iterative reconstruction, and/or weight-based dosing when appropriate to reduce radiation dose to as low as reasonably achievable. Dictated by Donavan Crawford MD @ Jun 09 2019 2:24AM Signed by Dr. Donavan Crawford @ Jun 09 2019 2:32AM
[2019-06-09 03:42] VITALS: BP 135/64; PULSE 91
== END 2019-06-09 03:57 | disposition home or self-care (01) ==
LOC: MW.ED 00:33
DX: K52.9 Noninfective gastroenteritis and colitis, unspecified (principal); K80.20 Calculus of gallbladder without cholecystitis without obstruction; E66.9 Obesity, unspecified; Z88.1 Allergy status to other antibiotic agents; Z91.041 Radiographic dye allergy status; Z79.899 Other long term (current) drug therapy; Z68.42 Body mass index [BMI] 45.0-49.9, adult
CPT/HCPCS: 36415; 74176; 80053; 81001; 85025; 96361; 96374; 99284; J2405; J7040

== ENCOUNTER 2019-06-10 00:45 | Emergency (ER) | payer BC ==
[2019-06-10] MEDS ORDERED: Ondansetron 4 MG/2 ML SDV IVPUSH ONE (00:53)
[2019-06-10] MEDS ORDERED: Sodium Chloride 0.9% 1,000 ML IV ONE (00:54)
[2019-06-10 00:55] VITALS: BP 136/89; PULSE 108
[2019-06-10 01:37] LABS: BLOOD UREA NITROGEN,BUN 17 mg/dL (7.0-18.0); CARBON DIOXIDE,CO2 29.5 mmol/L (21.0-32.0); CHLORIDE,CL 104 mmol/L (98-107); GLUCOSE RANDOM 112 mg/dL (74-106); LIPASE 98 U/L (73-393); POTASSIUM,K 4.1 mmol/L (3.5-5.1); SODIUM,NA 142 mmol/L (136-148)
--- NOTE | 2019-06-10 01:45 | EDM.PDOC ---
ED HPI GENERAL MEDICAL PROBLEM - General Chief Complaint: Gastrointestinal Problem Stated Complaint: THROWING UP Time Seen by Provider: 06/10/19 01:40 - History of Present Illness INITIAL COMMENTS - FREE TEXT/NARRATIVE: HISTORY AND PHYSICAL: History of present illness: Patient is a 28-year-old white male who presents with a concern of nausea and vomiting is seen in the ER last night for same worked up and discharged on Zofran for which he only used 1. Patient denies abdominal pain fever chills or other concern Review of systems: As per history of present illness and below otherwise all systems reviewed and negative. Past medical history: As per history of present illness and as reviewed below otherwise noncontributory. Surgical history: As per history of present illness and as reviewed below otherwise noncontributory. Social history: No reported history of drug or alcohol abuse. Family history: As per history of present illness and as reviewed below otherwise noncontributory. Physical exam: HEENT: Atraumatic, normocephalic, pupils reactive, negative for conjunctival pallor or scleral icterus, mucous membranes moist, throat clear, neck supple, nontender, trachea midline. Lungs: Clear to auscultation, breath sounds equal bilaterally, chest nontender. Heart: S1S2, regular, negative for clicks, rubs, or JVD. Abdomen: Soft, nondistended, nontender. Negative for masses or hepatosplenomegaly. Negative for costovertebral tenderness. Pelvis: Stable nontender. Genitourinary: Deferred. Rectal: Deferred. Extremities: Atraumatic, negative for cords or calf pain. Neurovascular unremarkable. Neuro: Awake, alert, oriented. Cranial nerves II through XII unremarkable. Cerebellum unremarkable. Motor and sensory unremarkable throughout. Exam nonfocal. Diagnostics: CBC CMP and lipase abdominal series with chest x-ray Therapeutics: Saline 1 L bolus Zofran 4 mg IV Impression: #1 vomiting #2 mild dehydration #3 medical screening Definitive disposition and diagnosis as appropriate pending reevaluation and review of above. - Related Data Allergies Allergy/AdvReac Type Severity Reaction Status Date / Time vancomycin Allergy Rash Verified 06/10/19 00:55 Iodinated Contrast Media AdvReac Renal Verified 06/10/19 00:55 Failure Home Meds: Home Meds Furosemide 20 mg PO DAILY 06/09/19 [History] Potassium Chloride 10 meq PO DAILY 06/09/19 [History] Ondansetron [Zofran ODT] 4 mg PO Q8H PRN 06/10/19 [History] Past Medical History - Past Health History Medical/Surgical History: Denies Medical/Surgical History HEENT History: Reports: None Cardiovascular History: Reports: None, Blood Clots/VTE/DVT Respiratory History: Reports: None Gastrointestinal History: Reports: Other (See Below) Other Gastrointestinal History: elevation in LFTs, abdominal US 09/2015 showed fatty liver and gallbladder sludge. Genitourinary History: Reports: UTI, Recurrent Other Genitourinary History: na Musculoskeletal History: Reports: None Neurological History: Reports: Other (See Below) Other Neuro History: hydrocephalus Psychiatric History: Reports: None Endocrine/Metabolic History: Reports: Obesity/BMI 30+ Hematologic History: Reports: None Immunologic History: Reports: None Oncologic (Cancer) History: Reports: None Dermatologic History: Reports: Cellulitis, Chronic Cellulitis Other Dermatologic History: RLE - Infectious Disease History Infectious Disease History: Reports: Chicken Pox - Past Surgical History Head Surgeries/Procedures: Reports: None HEENT Surgical History: Reports: None Cardiovascular Surgical History: Reports: None Respiratory Surgical History: Reports: None GI Surgical History: Reports: None Male Surgical History: Reports: None Endocrine Surgical History: Reports: None Neurological Surgical History: Reports: None Musculoskeletal Surgical History: Reports: None Oncologic Surgical History: Reports: None Dermatological Surgical History: Reports: None Social & Family History - Family History Family Medical History: Noncontributory Other Dermatologic Family History: family history of cellulitis - Tobacco Use Smoking Status *Q: Never Smoker Second Hand Smoke Exposure: No - Caffeine Use Caffeine Use: Reports: Soda - Recreational Drug Use Recreational Drug Use: No - Living Situation & Occupation Living situation: Reports: Single, with Family Occupation: Employed ED ROS GENERAL - Review of Systems Review Of Systems: Comprehensive ROS is negative, except as noted in HPI. ED EXAM, GENERAL - Physical Exam Exam: See Below (See dictation) Course - Vital Signs Last Recorded V/S: Last Vital Signs Temp 36.8 C 06/10/19 00:51 Pulse 108 H 06/10/19 00:51 Resp 21 H 06/10/19 00:51 BP 136/89 06/10/19 00:51 Pulse Ox 94 L 06/10/19 00:51 - Orders/Labs/Meds Orders: Active Orders 24 hr Category Date Time Status Abdomen Series w Chest 1V [CR] Stat Exams 06/10/19 00:53 Ordered Sodium Chloride 0.9% [Normal Saline] 1,000 ml Med 06/10/19 00:54 Active IV .Bolus Medication Orders Sodium Chloride (Normal Saline) 1,000 mls @ 999 mls/hr IV .Bolus ONE Stop: 06/10/19 01:54 Last Admin: 06/10/19 00:58 Dose: 999 mls/hr Labs: Laboratory Tests 06/10/19 06/10/19 Range/Units 01:08 01:08 WBC 6.77 (4.0-11.0) K/uL RBC 5.57 (4.50-5.90) M/uL Hgb 15.5 (13.0-17.0) g/dL Hct 46.6 (38.0-50.0) % MCV 83.7 (80.0-98.0) fL MCH 27.8 (27.0-32.0) pg MCHC 33.3 (31.0-37.0) g/dL RDW Std Deviation 39.8 (28.0-62.0) fl RDW Coeff of Gabriella 13 (11.0-15.0) % Plt Count 163 (150-400) K/uL MPV 10.70 (7.40-12.00) fL Nucleated RBC % 0.0 /100WBC Nucleated RBCs # 0 K/uL Sodium 142 (136-148) mmol/L Potassium 4.1 (3.5-5.1) mmol/L Chloride 104 (98-107) mmol/L Carbon Dioxide 29.5 (21.0-32.0) mmol/L BUN 17 (7.0-18.0) mg/dL Creatinine 0.9 (0.8-1.3) mg/dL Est Cr Clr Drug Dosing 96.59 mL/min Estimated GFR (MDRD) > 60.0 ml/min Glucose 112 H (74-106) mg/dL Calcium 7.9 L (8.5-10.1) mg/dL Total Bilirubin 1.1 H (0.2-1.0) mg/dL AST 37 (15-37) IU/L ALT 79 H (14-63) IU/L Alkaline Phosphatase 69 (46-116) U/L Total Protein 7.1 (6.4-8.2) g/dL Albumin 3.7 (3.4-5.0) g/dL Globulin 3.4 (2.6-4.0) g/dL Albumin/Globulin Ratio 1.1 (0.9-1.6) Lipase 98 (73-393) U/L Meds: Medications Generic Name Dose Route Start Last Admin Trade Name Freq PRN Reason Stop Dose Admin Sodium Chloride 1,000 mls @ 999 mls/hr 06/10/19 00:54 06/10/19 00:58 Normal Saline IV 06/10/19 01:54 999 mls/hr .Bolus ONE Administration Discontinued Medications Generic Name Dose Route Start Last Admin Trade Name Freq PRN Reason Stop Dose Admin Ondansetron HCl 4 mg 06/10/19 00:53 06/10/19 00:59 Zofran IVPUSH 06/10/19 00:54 4 mg ONETIME ONE Administration Departure - Departure Time of Disposition: 01:44 Disposition: Home, Self-Care 01 Condition: Good Clinical Impression: Vomiting, Mild dehydration, Encounter for medical screening examination - Discharge Information Referrals: Alistair Hazel MD [Primary Care Provider] - Additional Instructions: The following information is given to patients seen in the emergency department who are being discharged to home. This information is to outline your options for follow-up care. We provide all patients seen in our emergency department with a follow-up referral. The need for follow-up, as well as the timing and circumstances, are variable depending upon the specifics of your emergency department visit. If you don't have a primary care physician on staff, we will provide you with a referral. We always advise you to contact your personal physician following an emergency department visit to inform them of the circumstance of the visit and for follow-up with them and/or the need for any referrals to a consulting specialist. The emergency department will also refer you to a specialist when appropriate. This referral assures that you have the opportunity for followup care with a specialist. All of these measure are taken in an effort to provide you with optimal care, which includes your followup. Under all circumstances we always encourage you to contact your private physician who remains a resource for coordinating your care. When calling for followup care, please make the office aware that this follow-up is from your recent emergency room visit. If for any reason you are refused follow-up, please contact the [facility] emergency department at and asked to speak to the emergency department charge nurse. Push fluids clear liquids as directed avoid dairy products 72 hours Zofran as prescribed return as needed as discussed follow-up primary medical doctor as needed as discussed - My Orders Last 24 Hours: My Active Orders 06/10/19 00:53 Abdomen Series w Chest 1V [CR] Stat 06/10/19 00:54 Sodium Chloride 0.9% [Normal Saline] 1,000 ml IV .Bolus - Assessment/Plan Last 24 Hours: My Active Orders 06/10/19 00:53 Abdomen Series w Chest 1V [CR] Stat 06/10/19 00:54 Sodium Chloride 0.9% [Normal Saline] 1,000 ml IV .Bolus
--- NOTE | 2019-06-10 02:18 | CR ---
Indication: Chest/abdomen pain Technique: Chest/Abdomen 2 view, 6 films Comparison: None Findings/Impression: Views of the chest show borderline heart size without acute consolidation. No dilated loops of bowel or pneumoperitoneum. No abnormal calcification. Osseous structures unremarkable. Dictated by Donavan Crawford MD @ Jun 10 2019 2:15AM Signed by Dr. Donavan Crawford @ Jun 10 2019 2:17AM
== END 2019-06-10 02:38 | disposition home or self-care (01) ==
LOC: MW.ED 00:45
DX: E86.0 Dehydration (principal); R11.2 Nausea with vomiting, unspecified; Z88.7 Allergy status to serum and vaccine; Z91.041 Radiographic dye allergy status; Z86.718 Personal history of other venous thrombosis and embolism
CPT/HCPCS: 36415; 74022; 80053; 83690; 85027; 96361; 96374; 99284; J2405; J7040

== ENCOUNTER 2019-06-11 07:56 | Emergency (ER) | payer BC ==
--- NOTE | 2019-06-11 08:04 | EDM.PDOC ---
ED HPI GENERAL MEDICAL PROBLEM - General Chief Complaint: Gastrointestinal Problem Stated Complaint: VOMITING Time Seen by Provider: 06/11/19 08:00 - History of Present Illness INITIAL COMMENTS - FREE TEXT/NARRATIVE: HISTORY AND PHYSICAL: History of present illness: The patient is a 28-year-old male with a history of lymphedema of his lower extremities obesity and was been seen in the emergency department the last 2 days in a row, June 09 and June 10, with complaints of nausea and vomiting. On the first visit he had a full lab workup with a CT scan of the abdomen and pelvis which I reviewed and which showed cholelithiasis without any evidence of cholecystitis and a fat-containing right inguinal hernia. He returned the next day stating that he was still vomiting and according to the providers documentation he had only used one of the Zofran that he was prescribed on the first visit and he had a repeat lab workup which again showed no lab abnormalities, an abdominal x-ray that was without acute changes and he was given fluids and Zofran and discharged. The patient returns today, with the same symptoms saying that the Zofran he was given he has been using every 8 hours and it has helped him to keep some fluids down but then this morning he got up and it was not working. He last took it about 4 hours ago and he started having vomiting of bile. He has not had a bowel movement since Thursday and has no abdominal pain bloating or cramping and has no fevers chills flank pain chest pain or shortness of breath. He says that in the past when he has had vomiting like this he has cellulitis of his legs but when I asked him if he is examined his legs and other parts of his body he says he has not. He denies any new pain in his legs or swelling that he has noted. The patient denies any GI history such as IBS syndromes or abdominal surgical procedures. Review of systems: As per history of present illness and below otherwise all systems reviewed and negative. Past medical history: As per history of present illness and as reviewed below otherwise noncontributory. Surgical history: As per history of present illness and as reviewed below otherwise noncontributory. Social history: No reported history of drug or alcohol abuse. Family history: As per history of present illness and as reviewed below otherwise noncontributory. Physical exam: General: Well-developed well-nourished overweight man who is nontoxic and vital signs are noted by me. HEENT: Atraumatic, normocephalic, negative for conjunctival pallor or scleral icterus, mucous membranes dry and tacky, throat clear, neck supple, nontender, trachea midline. Lungs: Clear to auscultation, breath sounds equal bilaterally, chest nontender. Heart: S1S2, regular rate and rhythm no overt murmurs Abdomen: Soft, nondistended, nontender. Negative for masses or hepatosplenomegaly. Negative for costovertebral tenderness. Bowel sounds are hypoactive and there is no tympany on percussion nor is any rebound or guarding on deep palpation Pelvis: Stable nontender. Genitourinary: Deferred. Rectal: Deferred. Extremities: Atraumatic, negative for cords or calf pain. Neurovascular unremarkable. Bilateral lower extremities were examined both by me independently and with the patient looking as well and there is no evidence of any skin changes skin breaks redness or skin abnormalities consistent with his history of cellulitis. He says that his right leg is always a little bit eager than the left and there is no new changes that he can no with our simultaneous exam. Neuro: Awake, alert, oriented. Cranial nerves II through XII unremarkable. Cerebellum unremarkable. Motor and sensory unremarkable throughout. Exam nonfocal. Diagnostics: CBC CMP amylase lipase UA with reflex lactic acid abdominal x-rays Therapeutics: IV fluids Zofran and Protonix While in the ED the patient has not had any vomiting. All of his labs have been discussed with him and we will give him a second liter of IV fluids and start by mouth ice chips. Patient says he is feeling better and Zofran overall has been working. He does have a provider at [facility] Dr. Hazel on a recommended that he follow-up with him for the symptoms as he may need more testing going forward. I will also give him some Phenergan suppositories if the Zofran ODT does not work. He has been advised to eat a low-fat diet Impression: Recurrent vomiting History of cholelithiasis stable Definitive disposition and diagnosis as appropriate pending reevaluation and review of above. Headache Pain Score (Numeric/FACES): 5 - Related Data Allergies Allergy/AdvReac Type Severity Reaction Status Date / Time vancomycin Allergy Rash Verified 06/11/19 08:14 Iodinated Contrast Media AdvReac Renal Verified 06/11/19 08:14 Failure Home Meds: Home Meds Furosemide 20 mg PO DAILY 06/09/19 [History] Potassium Chloride 10 meq PO DAILY 06/09/19 [History] Ondansetron [Zofran ODT] 4 mg PO Q8H PRN 06/10/19 [History] Past Medical History - Past Health History Medical/Surgical History: Denies Medical/Surgical History HEENT History: Reports: None Cardiovascular History: Reports: None, Blood Clots/VTE/DVT Respiratory History: Reports: None Gastrointestinal History: Reports: Other (See Below) Other Gastrointestinal History: elevation in LFTs, abdominal US 09/2015 showed fatty liver and gallbladder sludge. Genitourinary History: Reports: UTI, Recurrent Other Genitourinary History: na Musculoskeletal History: Reports: None Neurological History: Reports: Other (See Below) Other Neuro History: hydrocephalus Psychiatric History: Reports: None Endocrine/Metabolic History: Reports: Obesity/BMI 30+ Hematologic History: Reports: None Immunologic History: Reports: None Oncologic (Cancer) History: Reports: None Dermatologic History: Reports: Cellulitis, Chronic Cellulitis Other Dermatologic History: RLE - Infectious Disease History Infectious Disease History: Reports: Chicken Pox - Past Surgical History Head Surgeries/Procedures: Reports: None HEENT Surgical History: Reports: None Cardiovascular Surgical History: Reports: None Respiratory Surgical History: Reports: None GI Surgical History: Reports: None Male Surgical History: Reports: None Endocrine Surgical History: Reports: None Neurological Surgical History: Reports: None Musculoskeletal Surgical History: Reports: None Oncologic Surgical History: Reports: None Dermatological Surgical History: Reports: None Social & Family History - Family History Family Medical History: Noncontributory Other Dermatologic Family History: family history of cellulitis - Caffeine Use Caffeine Use: Reports: Soda - Living Situation & Occupation Living situation: Reports: Single, with Family Occupation: Employed ED ROS GENERAL - Review of Systems Review Of Systems: Comprehensive ROS is negative, except as noted in HPI. ED EXAM, GENERAL - Physical Exam Exam: See Below (see Dictation) Course - Vital Signs Last Recorded V/S: Last Vital Signs Temp 36.7 C 06/11/19 08:14 Pulse 111 H 06/11/19 08:14 Resp 20 06/11/19 08:14 BP 155/89 H 06/11/19 08:14 Pulse Ox 97 06/11/19 08:18 - Orders/Labs/Meds Orders: Active Orders 24 hr Category Date Time Status Pantoprazole [ProTONIX IV] 80 mg Med 06/11/19 08:30 Active Sodium Chloride 0.9% [Normal Saline] 100 ml IV .Continuous Sodium Chloride 0.9% [Normal Saline] 1,000 ml Med 06/11/19 09:26 Active IV STAT Sodium Chloride 0.9% [Saline Flush] Med 06/11/19 08:17 Active 10 ml FLUSH ASDIRECTED PRN Sodium Chloride 0.9% [Saline Flush] Med 06/11/19 08:17 Active 2.5 ml FLUSH ASDIRECTED PRN Saline Lock Insert [OM.PC] Stat Oth 06/11/19 08:16 Ordered Medication Orders Pantoprazole Sodium 80 mg/ (Sodium Chloride) 100 mls @ 10 mls/hr IV .Continuous ALAINA Sodium Chloride (Normal Saline) 1,000 mls @ 999 mls/hr IV STAT ONE Stop: 06/11/19 10:26 Sodium Chloride (Saline Flush) 10 ml FLUSH ASDIRECTED PRN PRN Reason: Keep Vein Open Last Admin: 06/11/19 09:07 Dose: 10 ml Sodium Chloride (Saline Flush) 2.5 ml FLUSH ASDIRECTED PRN PRN Reason: Keep Vein Open Labs: Laboratory Tests 06/11/19 06/11/19 06/11/19 Range/Units 08:24 08:24 08:24 WBC 7.36 (4.0-11.0) K/uL RBC 5.03 (4.50-5.90) M/uL Hgb 14.3 (13.0-17.0) g/dL Hct 41.4 (38.0-50.0) % MCV 82.3 (80.0-98.0) fL MCH 28.4 (27.0-32.0) pg MCHC 34.5 (31.0-37.0) g/dL RDW Std Deviation 38.6 (28.0-62.0) fl RDW Coeff of Gabriella 13 (11.0-15.0) % Plt Count 168 (150-400) K/uL MPV 10.90 (7.40-12.00) fL Neut % (Auto) 74.5 (48.0-80.0) % Lymph % (Auto) 15.6 L (16.0-40.0) % Power % (Auto) 9.1 (0.0-15.0) % Eos % (Auto) 0.5 (0.0-7.0) % Baso % (Auto) 0.3 (0.0-1.5) % Neut # (Auto) 5.5 (1.4-5.7) K/uL Lymph # (Auto) 1.2 (0.6-2.4) K/uL Power # (Auto) 0.7 (0.0-0.8) K/uL Eos # (Auto) 0.0 (0.0-0.7) K/uL Baso # (Auto) 0.0 (0.0-0.1) K/uL Lactate 0.9 (0.20-2.00) mmol/L Sodium 141 (136-148) mmol/L Potassium 3.7 (3.5-5.1) mmol/L Chloride 104 (98-107) mmol/L Carbon Dioxide 29.5 (21.0-32.0) mmol/L BUN 15 (7.0-18.0) mg/dL Creatinine 0.9 (0.8-1.3) mg/dL Est Cr Clr Drug Dosing 123.92 mL/min Estimated GFR (MDRD) > 60.0 ml/min Glucose 116 H (74-106) mg/dL Calcium 8.1 L (8.5-10.1) mg/dL Total Bilirubin 0.4 (0.2-1.0) mg/dL AST 24 (15-37) IU/L ALT 74 H (14-63) IU/L Alkaline Phosphatase 76 (46-116) U/L Total Protein 6.6 (6.4-8.2) g/dL Albumin 3.4 (3.4-5.0) g/dL Globulin 3.2 (2.6-4.0) g/dL Albumin/Globulin Ratio 1.1 (0.9-1.6) Amylase 33 (25-115) U/L Lipase 77 (73-393) U/L Urine Color Urine Appearance Urine pH (5.0-8.0) Ur Specific [place] (1.001-1.035) Urine Protein (NEGATIVE) mg/dL Urine Glucose (UA) (NEGATIVE) mg/dL Urine Ketones (NEGATIVE) mg/dL Urine Occult Blood (NEGATIVE) Urine Nitrite (NEGATIVE) Urine Bilirubin (NEGATIVE) Urine Ictotest Urine Urobilinogen (<2.0) EU/dL Ur Leukocyte Esterase (NEGATIVE) 06/11/19 Range/Units 09:37 WBC (4.0-11.0) K/uL RBC (4.50-5.90) M/uL Hgb (13.0-17.0) g/dL Hct (38.0-50.0) % MCV (80.0-98.0) fL MCH (27.0-32.0) pg MCHC (31.0-37.0) g/dL RDW Std Deviation (28.0-62.0) fl RDW Coeff of Gabriella (11.0-15.0) % Plt Count (150-400) K/uL MPV (7.40-12.00) fL Neut % (Auto) (48.0-80.0) % Lymph % (Auto) (16.0-40.0) % Power % (Auto) (0.0-15.0) % Eos % (Auto) (0.0-7.0) % Baso % (Auto) (0.0-1.5) % Neut # (Auto) (1.4-5.7) K/uL Lymph # (Auto) (0.6-2.4) K/uL Power # (Auto) (0.0-0.8) K/uL Eos # (Auto) (0.0-0.7) K/uL Baso # (Auto) (0.0-0.1) K/uL Lactate (0.20-2.00) mmol/L Sodium (136-148) mmol/L Potassium (3.5-5.1) mmol/L Chloride (98-107) mmol/L Carbon Dioxide (21.0-32.0) mmol/L BUN (7.0-18.0) mg/dL Creatinine (0.8-1.3) mg/dL Est Cr Clr Drug Dosing mL/min Estimated GFR (MDRD) ml/min Glucose (74-106) mg/dL Calcium (8.5-10.1) mg/dL Total Bilirubin (0.2-1.0) mg/dL AST (15-37) IU/L ALT (14-63) IU/L Alkaline Phosphatase (46-116) U/L Total Protein (6.4-8.2) g/dL Albumin (3.4-5.0) g/dL Globulin (2.6-4.0) g/dL Albumin/Globulin Ratio (0.9-1.6) Amylase (25-115) U/L Lipase (73-393) U/L Urine Color YELLOW Urine Appearance HAZY Urine pH 6.0 (5.0-8.0) Ur Specific [place] 1.025 (1.001-1.035) Urine Protein NEGATIVE (NEGATIVE) mg/dL Urine Glucose (UA) NEGATIVE (NEGATIVE) mg/dL Urine Ketones TRACE H (NEGATIVE) mg/dL Urine Occult Blood NEGATIVE (NEGATIVE) Urine Nitrite NEGATIVE (NEGATIVE) Urine Bilirubin SMALL H (NEGATIVE) Urine Ictotest NEGATIVE Urine Urobilinogen 4.0 H (<2.0) EU/dL Ur Leukocyte Esterase NEGATIVE (NEGATIVE) Meds: Medications Generic Name Dose Route Start Last Admin Trade Name Freq PRN Reason Stop Dose Admin Pantoprazole Sodium 80 mg/ 100 mls @ 10 mls/hr 06/11/19 08:30 Sodium Chloride IV .Continuous ALAINA Sodium Chloride 1,000 mls @ 999 mls/hr 06/11/19 09:26 Normal Saline IV 06/11/19 10:26 STAT ONE Sodium Chloride 10 ml 06/11/19 08:17 06/11/19 09:07 Saline Flush FLUSH 10 ml ASDIRECTED PRN Administration Keep Vein Open Sodium Chloride 2.5 ml 06/11/19 08:17 Saline Flush FLUSH ASDIRECTED PRN Keep Vein Open Discontinued Medications Generic Name Dose Route Start Last Admin Trade Name Freq PRN Reason Stop Dose Admin Sodium Chloride 1,000 mls @ 999 mls/hr 06/11/19 08:17 06/11/19 09:05 Normal Saline IV 06/11/19 09:17 999 mls/hr STAT ONE Administration Sterile Water Confirm 06/11/19 08:43 06/11/19 09:11 Sterile Water For Injection Administered 06/11/19 08:44 20 mls/hr Dose Administration 20 mls @ as directed .ROUTE .STK-MED ONE Ondansetron HCl 4 mg 06/11/19 08:17 06/11/19 09:08 Zofran IVPUSH 06/11/19 08:18 4 mg ONETIME ONE Administration Pantoprazole Sodium Confirm 06/11/19 08:43 06/11/19 09:10 Protonix Iv Administered 06/11/19 08:44 80 mg Dose Administration 80 mg .ROUTE .STK-MED ONE Departure - Departure Time of Disposition: 10:10 Disposition: Home, Self-Care 01 Condition: Good Clinical Impression: Vomiting - Discharge Information Referrals: PCP,Unknown [Primary Care Provider] - Forms: ED Department Discharge Additional Instructions: The following information is given to patients seen in the emergency department who are being discharged to home. This information is to outline your options for follow-up care. We provide all patients seen in our emergency department with a follow-up referral. The need for follow-up, as well as the timing and circumstances, are variable depending upon the specifics of your emergency department visit. If you don't have a primary care physician on staff, we will provide you with a referral. We always advise you to contact your personal physician following an emergency department visit to inform them of the circumstance of the visit and for follow-up with them and/or the need for any referrals to a consulting specialist. The emergency department will also refer you to a specialist when appropriate. This referral assures that you have the opportunity for followup care with a specialist. All of these measure are taken in an effort to provide you with optimal care, which includes your followup. Under all circumstances we always encourage you to contact your private physician who remains a resource for coordinating your care. When calling for followup care, please make the office aware that this follow-up is from your recent emergency room visit. If for any reason you are refused follow-up, please contact the [facility] emergency department at and ask to speak to the emergency department charge nurse. [address] [place] [address] Please connect with your provider at [facility] Dr. Hazel or one of his associates for further care and evaluation of these recurring symptoms. Continue to use the Zofran that you have and add the Phenergan suppositories as needed for persistent vomiting. Push ice chips small sips and clear liquids and bland diet. Do not eat any fatty foods. Return to ER as needed and as discussed - My Orders Last 24 Hours: My Active Orders 06/11/19 08:16 Saline Lock Insert [OM.PC] Stat 06/11/19 08:17 Sodium Chloride 0.9% [Saline Flush] 10 ml FLUSH ASDIRECTED PRN Sodium Chloride 0.9% [Saline Flush] 2.5 ml FLUSH ASDIRECTED PRN 06/11/19 08:30 Pantoprazole [ProTONIX IV] 80 mg Sodium Chloride 0.9% [Normal Saline] 100 ml IV .Continuous 06/11/19 09:26 Sodium Chloride 0.9% [Normal Saline] 1,000 ml IV STAT - Assessment/Plan Last 24 Hours: My Active Orders 06/11/19 08:16 Saline Lock Insert [OM.PC] Stat 06/11/19 08:17 Sodium Chloride 0.9% [Saline Flush] 10 ml FLUSH ASDIRECTED PRN Sodium Chloride 0.9% [Saline Flush] 2.5 ml FLUSH ASDIRECTED PRN 06/11/19 08:30 Pantoprazole [ProTONIX IV] 80 mg Sodium Chloride 0.9% [Normal Saline] 100 ml IV .Continuous 06/11/19 09:26 Sodium Chloride 0.9% [Normal Saline] 1,000 ml IV STAT
[2019-06-11] MEDS ORDERED: Sodium Chloride 0.9% 2.5 ML Syringe FLUSH PRN (08:17)
[2019-06-11] MEDS ORDERED: Sodium Chloride 0.9% 1,000 ML IV ONE ×2 (08:17→09:26)
[2019-06-11] MEDS ORDERED: Ondansetron 4 MG/2 ML SDV IVPUSH ONE (08:17)
[2019-06-11] MEDS ORDERED: Sodium Chloride 0.9% 10 ML Syringe FLUSH PRN (08:17)
[2019-06-11] MEDS ORDERED: Pantoprazole 80 MG in Sodium Chloride 0.9% 100 ML IV SCH (08:30)
[2019-06-11] MEDS ORDERED: Pantoprazole 40 MG Vial ONE (08:43)
[2019-06-11] MEDS ORDERED: Water For Injection, Sterile 20 ML ONE (08:43)
[2019-06-11 09:05] LABS: BLOOD UREA NITROGEN,BUN 15 mg/dL (7.0-18.0); CARBON DIOXIDE,CO2 29.5 mmol/L (21.0-32.0); CHLORIDE,CL 104 mmol/L (98-107); GLUCOSE RANDOM 116 mg/dL (74-106); LIPASE 77 U/L (73-393); POTASSIUM,K 3.7 mmol/L (3.5-5.1); SODIUM,NA 141 mmol/L (136-148)
--- NOTE | 2019-06-11 09:12 | CR ---
Indication: Vomiting for 4 days. Technique: PA view of the chest and AP supine and upright views of the abdomen and pelvis. Comparison: Study from yesterday. Findings: The heart is borderline in size. Bibasilar atelectasis identified. No infiltrate, pleural effusion, or pneumothorax is identified. No free air is identified. The bowel gas pattern is nonobstructive. Impression: Nonobstructive bowel gas pattern. No free air. No acute cardiopulmonary process. Dictated by Sarah Agarwal MD @ Jun 11 2019 9:09AM Signed by Dr. Sarah Agarwal @ Jun 11 2019 9:10AM
[2019-06-11 12:07] VITALS: BP 140/72; PULSE 98
== END 2019-06-11 11:05 | disposition home or self-care (01) ==
LOC: MW.ED 07:56
DX: R11.2 Nausea with vomiting, unspecified (principal); E66.9 Obesity, unspecified; Z68.32 Body mass index [BMI] 32.0-32.9, adult; Z88.1 Allergy status to other antibiotic agents
CPT/HCPCS: 36415; 74022; 80053; 81003; 82150; 83605; 83690; 85025; 96361; 96374; 99284; C9113; J2405; J7040; 99283

== ENCOUNTER 2019-06-11 21:59 | Emergency (ER) | payer BC ==
[2019-06-11] MEDS ORDERED: Ondansetron 4 MG/2 ML SDV IVPUSH ONE (22:13)
[2019-06-11] MEDS ORDERED: Sodium Chloride 0.9% 1,000 ML IV SCH (22:15)
--- NOTE | 2019-06-11 22:22 | EDM.PDOC ---
ED HPI GENERAL MEDICAL PROBLEM - General Chief Complaint: Gastrointestinal Problem Stated Complaint: CONSTANT THROWING UP Time Seen by Provider: 06/11/19 22:09 - History of Present Illness INITIAL COMMENTS - FREE TEXT/NARRATIVE: HISTORY AND PHYSICAL: History of present illness: Patient 28-year-old white male who presents with a concern of nausea vomiting patient has been seen multiple times in emergency department or last week and has had a comprehensive workup including lab and CT abdomen and pelvis that have been nondiagnostic Review of systems: As per history of present illness and below otherwise all systems reviewed and negative. Past medical history: As per history of present illness and as reviewed below otherwise noncontributory. Surgical history: As per history of present illness and as reviewed below otherwise noncontributory. Social history: No reported history of drug or alcohol abuse. Family history: As per history of present illness and as reviewed below otherwise noncontributory. Physical exam: HEENT: Atraumatic, normocephalic, pupils reactive, negative for conjunctival pallor or scleral icterus, mucous membranes moist, throat clear, neck supple, nontender, trachea midline. Lungs: Clear to auscultation, breath sounds equal bilaterally, chest nontender. Heart: S1S2, regular, negative for clicks, rubs, or JVD. Abdomen: Soft, nondistended, nontender. Negative for masses or hepatosplenomegaly. Negative for costovertebral tenderness. Pelvis: Stable nontender. Genitourinary: Deferred. Rectal: Deferred. Extremities: Atraumatic, negative for cords or calf pain. Neurovascular unremarkable. Neuro: Awake, alert, oriented. Cranial nerves II through XII unremarkable. Cerebellum unremarkable. Motor and sensory unremarkable throughout. Exam nonfocal. Diagnostics: CBC CMP lipase PT/INR Therapeutics: IV fluid normal saline 1 L bolus Zofran 4 mg IV Impression: #1 intermittent vomiting Definitive disposition and diagnosis as appropriate pending reevaluation and review of above. head Pain Score (Numeric/FACES): 10 - Related Data Allergies Allergy/AdvReac Type Severity Reaction Status Date / Time vancomycin Allergy Rash Verified 06/11/19 22:14 Iodinated Contrast Media AdvReac Renal Verified 06/11/19 22:14 Failure Home Meds: Home Meds Ondansetron [Zofran ODT] 4 mg PO Q8H PRN 06/10/19 [History] Promethazine [Phenadoz] 1 supp RECTAL Q12HR PRN 06/11/19 [History] Past Medical History - Past Health History Medical/Surgical History: Denies Medical/Surgical History HEENT History: Reports: None Cardiovascular History: Reports: None, Blood Clots/VTE/DVT Respiratory History: Reports: None Gastrointestinal History: Reports: Other (See Below) Other Gastrointestinal History: elevation in LFTs, abdominal US 09/2015 showed fatty liver and gallbladder sludge. Genitourinary History: Reports: UTI, Recurrent Other Genitourinary History: na Musculoskeletal History: Reports: None Neurological History: Reports: Other (See Below) Other Neuro History: hydrocephalus Psychiatric History: Reports: None Endocrine/Metabolic History: Reports: Obesity/BMI 30+ Hematologic History: Reports: None Immunologic History: Reports: None Oncologic (Cancer) History: Reports: None Dermatologic History: Reports: Cellulitis, Chronic Cellulitis Other Dermatologic History: RLE - Infectious Disease History Infectious Disease History: Reports: Chicken Pox - Past Surgical History Head Surgeries/Procedures: Reports: None HEENT Surgical History: Reports: None Cardiovascular Surgical History: Reports: None Respiratory Surgical History: Reports: None GI Surgical History: Reports: None Male Surgical History: Reports: None Endocrine Surgical History: Reports: None Neurological Surgical History: Reports: None Musculoskeletal Surgical History: Reports: None Oncologic Surgical History: Reports: None Dermatological Surgical History: Reports: None Social & Family History - Family History Family Medical History: Noncontributory Other Dermatologic Family History: family history of cellulitis - Caffeine Use Caffeine Use: Reports: Soda - Living Situation & Occupation Living situation: Reports: Single, with Family Occupation: Employed ED ROS GENERAL - Review of Systems Review Of Systems: Comprehensive ROS is negative, except as noted in HPI. ED EXAM, GENERAL - Physical Exam Exam: See Below (Dictation) Course - Vital Signs Last Recorded V/S: Last Vital Signs Temp 36.8 C 06/11/19 21:59 Pulse 111 H 06/11/19 21:59 Resp 18 06/11/19 21:59 BP 143/86 H 06/11/19 21:59 Pulse Ox 95 06/11/19 21:59 - Orders/Labs/Meds Orders: Active Orders 24 hr Category Date Time Status Sodium Chloride 0.9% [Normal Saline] 1,000 ml Med 06/11/19 23:17 Active IV .BOLUS Sodium Chloride 0.9% [Normal Saline] 1,000 ml Med 06/11/19 22:15 Active IV ASDIRECTED Medication Orders Sodium Chloride (Normal Saline) 1,000 mls @ 999 mls/hr IV ASDIRECTED ALAINA Last Admin: 06/11/19 22:23 Dose: 999 mls/hr Sodium Chloride (Normal Saline) 1,000 mls @ 999 mls/hr IV .BOLUS ONE Stop: 06/12/19 00:17 Labs: Laboratory Tests 06/11/19 06/11/19 06/11/19 Range/Units 22:30 22:30 22:30 WBC 7.41 (4.0-11.0) K/uL RBC 5.15 (4.50-5.90) M/uL Hgb 14.3 (13.0-17.0) g/dL Hct 43.9 (38.0-50.0) % MCV 85.2 (80.0-98.0) fL MCH 27.8 (27.0-32.0) pg MCHC 32.6 (31.0-37.0) g/dL RDW Std Deviation 41.1 (28.0-62.0) fl RDW Coeff of Gabriella 13 (11.0-15.0) % Plt Count 185 (150-400) K/uL MPV 10.90 (7.40-12.00) fL Neut % (Auto) 74.7 (48.0-80.0) % Lymph % (Auto) 15.9 L (16.0-40.0) % Cloud % (Auto) 9.0 (0.0-15.0) % Eos % (Auto) 0.3 (0.0-7.0) % Baso % (Auto) 0.1 (0.0-1.5) % Neut # (Auto) 5.5 (1.4-5.7) K/uL Lymph # (Auto) 1.2 (0.6-2.4) K/uL Cloud # (Auto) 0.7 (0.0-0.8) K/uL Eos # (Auto) 0.0 (0.0-0.7) K/uL Baso # (Auto) 0.0 (0.0-0.1) K/uL Nucleated RBC % 0.0 /100WBC Nucleated RBCs # 0 K/uL INR 1.03 Sodium 142 (136-148) mmol/L Potassium 3.9 (3.5-5.1) mmol/L Chloride 104 (98-107) mmol/L Carbon Dioxide 32.2 H (21.0-32.0) mmol/L BUN 15 (7.0-18.0) mg/dL Creatinine 1.0 (0.8-1.3) mg/dL Est Cr Clr Drug Dosing 93.96 mL/min Estimated GFR (MDRD) > 60.0 ml/min Glucose 108 H (74-106) mg/dL Calcium 8.2 L (8.5-10.1) mg/dL Total Bilirubin 0.4 (0.2-1.0) mg/dL AST 26 (15-37) IU/L ALT 78 H (14-63) IU/L Alkaline Phosphatase 69 (46-116) U/L Total Protein 6.9 (6.4-8.2) g/dL Albumin 3.5 (3.4-5.0) g/dL Globulin 3.4 (2.6-4.0) g/dL Albumin/Globulin Ratio 1.0 (0.9-1.6) Urine Color Urine Appearance Urine pH (5.0-8.0) Ur Specific [place] (1.001-1.035) Urine Protein (NEGATIVE) mg/dL Urine Glucose (UA) (NEGATIVE) mg/dL Urine Ketones (NEGATIVE) mg/dL Urine Occult Blood (NEGATIVE) Urine Nitrite (NEGATIVE) Urine Bilirubin (NEGATIVE) Urine Ictotest Urine Urobilinogen (<2.0) EU/dL Ur Leukocyte Esterase (NEGATIVE) Urine RBC (0-2/HPF) Urine WBC (0-5/HPF) Ur Epithelial Cells (NONE-FEW) Urine Bacteria (NEGATIVE) Urine Mucus (NONE-MOD) Urine Opiates Screen (NEGATIVE) Ur Oxycodone Screen (NEGATIVE) Urine Methadone Screen (NEGATIVE) Ur Barbiturates Screen (NEGATIVE) Ur Phencyclidine Scrn (NEGATIVE) Ur Amphetamine Screen (NEGATIVE) U Methamphetamines Scrn (NEGATIVE) U Benzodiazepines Scrn (NEGATIVE) U Cocaine Metab Screen (NEGATIVE) U Marijuana (THC) Screen (NEGATIVE) 06/11/19 06/11/19 Range/Units 22:41 22:41 WBC (4.0-11.0) K/uL RBC (4.50-5.90) M/uL Hgb (13.0-17.0) g/dL Hct (38.0-50.0) % MCV (80.0-98.0) fL MCH (27.0-32.0) pg MCHC (31.0-37.0) g/dL RDW Std Deviation (28.0-62.0) fl RDW Coeff of Gabriella (11.0-15.0) % Plt Count (150-400) K/uL MPV (7.40-12.00) fL Neut % (Auto) (48.0-80.0) % Lymph % (Auto) (16.0-40.0) % Cloud % (Auto) (0.0-15.0) % Eos % (Auto) (0.0-7.0) % Baso % (Auto) (0.0-1.5) % Neut # (Auto) (1.4-5.7) K/uL Lymph # (Auto) (0.6-2.4) K/uL Cloud # (Auto) (0.0-0.8) K/uL Eos # (Auto) (0.0-0.7) K/uL Baso # (Auto) (0.0-0.1) K/uL Nucleated RBC % /100WBC Nucleated RBCs # K/uL INR Sodium (136-148) mmol/L Potassium (3.5-5.1) mmol/L Chloride (98-107) mmol/L Carbon Dioxide (21.0-32.0) mmol/L BUN (7.0-18.0) mg/dL Creatinine (0.8-1.3) mg/dL Est Cr Clr Drug Dosing mL/min Estimated GFR (MDRD) ml/min Glucose (74-106) mg/dL Calcium (8.5-10.1) mg/dL Total Bilirubin (0.2-1.0) mg/dL AST (15-37) IU/L ALT (14-63) IU/L Alkaline Phosphatase (46-116) U/L Total Protein (6.4-8.2) g/dL Albumin (3.4-5.0) g/dL Globulin (2.6-4.0) g/dL Albumin/Globulin Ratio (0.9-1.6) Urine Color YELLOW Urine Appearance SLT CLOUDY Urine pH 6.0 (5.0-8.0) Ur Specific [place] >= 1.030 (1.001-1.035) Urine Protein TRACE H (NEGATIVE) mg/dL Urine Glucose (UA) NEGATIVE (NEGATIVE) mg/dL Urine Ketones >=80 (NEGATIVE) mg/dL Urine Occult Blood TRACE-INTACT H (NEGATIVE) Urine Nitrite NEGATIVE (NEGATIVE) Urine Bilirubin MODERATE H (NEGATIVE) Urine Ictotest NEGATIVE Urine Urobilinogen 1.0 (<2.0) EU/dL Ur Leukocyte Esterase NEGATIVE (NEGATIVE) Urine RBC 1-3 (0-2/HPF) Urine WBC 0-2 (0-5/HPF) Ur Epithelial Cells RARE (NONE-FEW) Urine Bacteria RARE (NEGATIVE) Urine Mucus LIGHT (NONE-MOD) Urine Opiates Screen NEGATIVE (NEGATIVE) Ur Oxycodone Screen NEGATIVE (NEGATIVE) Urine Methadone Screen NEGATIVE (NEGATIVE) Ur Barbiturates Screen NEGATIVE (NEGATIVE) Ur Phencyclidine Scrn NEGATIVE (NEGATIVE) Ur Amphetamine Screen NEGATIVE (NEGATIVE) U Methamphetamines Scrn NEGATIVE (NEGATIVE) U Benzodiazepines Scrn NEGATIVE (NEGATIVE) U Cocaine Metab Screen NEGATIVE (NEGATIVE) U Marijuana (THC) Screen NEGATIVE (NEGATIVE) Meds: Medications Generic Name Dose Route Start Last Admin Trade Name Freq PRN Reason Stop Dose Admin Sodium Chloride 1,000 mls @ 999 mls/hr 06/11/19 22:15 06/11/19 22:23 Normal Saline IV 999 mls/hr ASDIRECTED ALAINA Administration Sodium Chloride 1,000 mls @ 999 mls/hr 06/11/19 23:17 Normal Saline IV 06/12/19 00:17 .BOLUS ONE Discontinued Medications Generic Name Dose Route Start Last Admin Trade Name Freq PRN Reason Stop Dose Admin Ondansetron HCl 4 mg 06/11/19 22:13 06/11/19 22:23 Zofran IVPUSH 06/11/19 22:14 4 mg ONETIME ONE Administration Departure - Departure Time of Disposition: 22:21 Disposition: Home, Self-Care 01 Condition: Good Clinical Impression: Vomiting, Dehydration - Discharge Information Referrals: Alistair Hazel MD [Primary Care Provider] - Forms: ED Department Discharge Additional Instructions: The following information is given to patients seen in the emergency department who are being discharged to home. This information is to outline your options for follow-up care. We provide all patients seen in our emergency department with a follow-up referral. The need for follow-up, as well as the timing and circumstances, are variable depending upon the specifics of your emergency department visit. If you don't have a primary care physician on staff, we will provide you with a referral. We always advise you to contact your personal physician following an emergency department visit to inform them of the circumstance of the visit and for follow-up with them and/or the need for any referrals to a consulting specialist. The emergency department will also refer you to a specialist when appropriate. This referral assures that you have the opportunity for followup care with a specialist. All of these measure are taken in an effort to provide you with optimal care, which includes your followup. Under all circumstances we always encourage you to contact your private physician who remains a resource for coordinating your care. When calling for followup care, please make the office aware that this follow-up is from your recent emergency room visit. If for any reason you are refused follow-up, please contact the [facility] emergency department at and asked to speak to the emergency department charge nurse. [facility] Specialty Care - General Surgery Professional Building [address] [place] [address], [address] [place] [address] Follow-up primary medical doctor general surgery above continue Zofran push fluids clear liquids as directed return as needed as discussed - My Orders Last 24 Hours: My Active Orders 06/11/19 22:15 Sodium Chloride 0.9% [Normal Saline] 1,000 ml IV ASDIRECTED 06/11/19 23:17 Sodium Chloride 0.9% [Normal Saline] 1,000 ml IV .BOLUS - Assessment/Plan Last 24 Hours: My Active Orders 06/11/19 22:15 Sodium Chloride 0.9% [Normal Saline] 1,000 ml IV ASDIRECTED 06/11/19 23:17 Sodium Chloride 0.9% [Normal Saline] 1,000 ml IV .BOLUS
[2019-06-11 23:00] LABS: BLOOD UREA NITROGEN,BUN 15 mg/dL (7.0-18.0); CARBON DIOXIDE,CO2 32.2 mmol/L (21.0-32.0); CHLORIDE,CL 104 mmol/L (98-107); GLUCOSE RANDOM 108 mg/dL (74-106); POTASSIUM,K 3.9 mmol/L (3.5-5.1); SODIUM,NA 142 mmol/L (136-148)
[2019-06-11] MEDS ORDERED: Sodium Chloride 0.9% 1,000 ML IV ONE (23:17)
[2019-06-12 00:56] VITALS: BP 156/92; PULSE 110
== END 2019-06-12 00:50 | disposition home or self-care (01) ==
LOC: MW.ED 21:59
DX: E86.0 Dehydration (principal); R11.2 Nausea with vomiting, unspecified; E66.9 Obesity, unspecified; Z68.42 Body mass index [BMI] 45.0-49.9, adult; Z86.718 Personal history of other venous thrombosis and embolism; Z88.1 Allergy status to other antibiotic agents; Z91.041 Radiographic dye allergy status
CPT/HCPCS: 36415; 80053; 80305; 81001; 85025; 85610; 96361; 96374; 99284; J2405; J7040; 99283; J7030